=== PATIENT | male | born 1955 | race Caucasian/White ===

== ENCOUNTER 2022-08-08 09:17 | Outpatient (CLI) | payer MEDICARE, BC, SELFPAY ==
[2022-08-08 10:02] LABS: Albumin* 4.4 g/dL (3.3-5.0)
[2022-08-08 10:03] LABS: Chloride* 105 mmol/L (96-114); Potassium* 4.4 mmol/L (3.6-5.1); Sodium* 140 mmol/L (135-149)
[2022-08-08 10:05] LABS: Bilirubin Total* 0.9 mg/dL (0.1-1.5); Blood Urea Nitrogen* 20 mg/dL (7-30); Carbon Dioxide* 29 mmol/L (20-32); Cholesterol* 148 mg/dL (90-199); Estimated Glomerular Filt Rate 82 ml/min; Total Protein* 7.1 g/dL (6.0-8.3)
[2022-08-08 10:06] LABS: Alanine Aminotransferase* 29 U/L (4-50); Alkaline Phosphatase* 67 U/L (40-150); Aspartate Amino Transferase* 30 U/L (12-35); Glucose* 123 mg/dL (60-115); HDL Cholesterol* 50 mg/dL (>=40); LDL Cholesterol Calculated 70 mg/dL (<100); Triglycerides* 139 mg/dL (40-149)
[2022-08-08 10:50] LABS: PSA Screen* < 0.06 ng/mL (0.10-4.00)
== END 2022-08-08 09:18 | disposition home or self-care (01) ==
PROVIDERS: PCP Internal Medicine; Visit Provider Internal Medicine
DX: E78.5 Hyperlipidemia, unspecified (principal); E11.9 Type 2 diabetes mellitus without complications; I10 Essential (primary) hypertension; E66.9 Obesity, unspecified; Z12.5 Encounter for screening for malignant neoplasm of prostate
CPT/HCPCS: 80053; 80061; 84153

== ENCOUNTER 2023-08-03 07:50 | Outpatient (CLI) | payer MEDICARE, BC, SELFPAY | END 2023-08-03 07:51 | disposition home or self-care (01) | LOC: NFLDREF 14:56 | PROVIDERS: PCP Internal Medicine; Referring Provider Internal Medicine; Visit Provider Internal Medicine | DX: E78.2 Mixed hyperlipidemia (principal); E11.9 Type 2 diabetes mellitus without complications | CPT/HCPCS: 80053; 80061 ==

== ENCOUNTER 2024-03-15 14:31 | Outpatient (CLI) | payer MEDICARE, BC, SELFPAY ==
--- OUTSIDE RECORDS SUMMARY | 2024-03-15 14:33 | XMS_ITS | Clinical Summary ---
Author Organization [facility] Address [address] [place] [address] Care Team Providers Care Sack Lifter Name Role Phone Elsewhere, Pcp Primary Care Provider Unavailabl e Source Comments Patient records contain information from all sites at [facility]. For routine questions regarding patient records, call [phone] during business hours, M-F 8:00 AM - 5:00 PM Central Time. Record requests for emergency care only can be directed to [phone] at any time.[facility] Allergies Active Allergy Reactions Criticality Noted Date Comments Ciprofloxacin Myalgia 08/08/2023 Levofloxacin Tendonitis 01/14/2019 Medications Medication Sig Dispensed Refills Start Date End Date Status simvastatin (for_ZOCOR) 40 mg tablet Take 1 tablet by mouth every evening. 11/17/2015 Active omeprazole (PriLOSEC) [address] capsule Take 20 mg by mouth every morning before breakfast. Active lisinopriL (PRINIVIL,ZESTRIL ) 2.5 mg tablet Take 2.5 mg by mouth daily. 07/22/2020 Active DME Ostomy suppliesIndicatio ns:Conduit Ileal (HCC) DME Order 1 Unspecified 11 05/13/2022 Active DME Ostomy suppliesIndicatio ns:Conduit Ileal (HCC) DME Order 1 Unspecified 11 05/13/2022 Active ipratropium (ATROVENT) 21 mcg (0.03 %) nasal spray Administer 2 sprays into each nostril 2 (two) times a day. 30 mL 12 12/20/2022 Active DME Ostomy suppliesIndicatio ns:Conduit Ileal (HCC) DME Order 1 Unspecified 11 06/08/2023 Active DME Ostomy suppliesIndicatio ns:Conduit Ileal (HCC) DME Order 1 Unspecified 11 06/14/2023 Active DME CPAPIndications:O bstructive Sleep Apnea Adult DME Order 1 each 11/17/2023 Active dorzolamide-timol oL (COSOPT) 22.3-6.8 mg/mL ophthalmic solution Administer 1 drop into the left eye once for 1 dose. Take 1 drop left eye the morning of eye injections to maintain a healthy intra-ocular pressure. 10 mL 2 01/15/2024 Active Hospital, Clinic, or Other Facility Administered Medication Ordered Dose Route Frequency Start Date End Date Status nystatin 100,000 unit/gram powder 1 application (NYSTOP)Indications:Afterca re Urostomy (HCC) 1 application. 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 01/04/2018 Malignant Neoplasm Of Bladder 12/25/2014 Hyperlipidemia Diabetes Mellitus Type 2 Without Complication Overview: pt states that he is diabetic and is supposed to lose weight, no medications prescribed Arthritis Resolved Problems Problem Noted Date Diagnosed Date Resolved Date Chronic Respiratory Failure With Hypoxia 11/04/2018 03/05/2019 Encounters Date Type Department Care Team Description 02/19/2024 CPAP Download Remote Patient Monitoring [facility] [address] [place] [address] [facility], Provider 01/19/2024 CPAP Download Remote Patient Monitoring [facility] [address] [place] [address] [facility], Provider 01/15/2024 3:29 PM CDT - 01/15/2024 11:59 PM CDT Hospital Encounter Outpatient Procedure Center in [place] [address] Cristobal Handley M.D. Discharge Disposition: Home or Self Care 01/15/2024 2:20 PM CDT - 01/15/2024 3:28 PM CDT Hospital Encounter Outpatient Procedure Center in [address] [phone] Linda Engle M.D. Central Retinal Vein Occlusion With Macular Edema Left (HCC) Discharge Disposition: Home or Self Care 01/15/2024 Orders Only Department of Ophthalmology in [address] [phone] Cristobal Handley M.D. 12/19/2023 CPAP Download Remote Patient Monitoring [facility] [address] [place] [address] [facility], Provider from Last 3 Months Immunizations Name Administration Dates Next Due SARS-COV-2 (COVID-19) - MODERNA(Discontinued) Family History Medical History Relation Name Comments Asthma Father Estiven Sleep apnea Father Estiven Asthma Paternal Grandfather abril Cancer Paternal Grandfather abril Diabetes Paternal Grandmother Layla ADD Son Alverto Diabetes Son Alverto Amblyopia Neg Hx Blindness Neg Hx Cataracts Neg Hx Glaucoma Neg Hx Hypertension Neg Hx Macular degeneration Neg Hx Retinal degeneration Neg Hx Retinal detachment Neg Hx Strabismus Neg Hx Relation Name Status Comments Father Estiven Paternal Grandfather abril Paternal Grandmother Layla Son Alverto Social History Tobacco Use Types Packs/Day Years Used Date Smoking Tobacco: Never Smokeless Tobacco: Never Tobacco Cessation:Counseling Given: Not Answered Alcohol Use Standard Drinks/Week Comments Yes 5 (1 standard drink = 0.6 oz pur e alcohol) Humiliation, Afraid, Rape, and Kick questionnair e Answer Date Recorded Within the last year, have y ou been afraid of your partner or ex-partner? No 12/19/2022 Within the last year, have y ou been humiliated or emotionally abused in other ways by your partner or ex-partner? No Within the last year, have y ou been kicked, hit, slapped, or otherwise physically hurt by your partner or ex-partner? No 12/19/2022 Within the last year, have y ou been raped or forced to have any kind of sexual activity by your partner or ex-partner? No 12/19/2022 Social Connection and Isolat ion Panel [NHANES] Answer Date Recorded In a typical week, how many times do you talk on the phone with family, friends, or neighbors? More than three times a week 12/19/2022 How often do you get togethe r with friends or relatives? Three times a week 12/19/2022 How often do you attend chur ch or samaritan services? 1 to 4 times per year 12/19/2022 Do you belong to any clubs o r organizations such as judaism groups, unions, [employer] or athletic groups, or school groups? No 12/19/2022 How often do you attend meet ings of the clubs or organizations you belong to? Never 12/19/2022 Are you , , di vorced, , never , or living with a partner? 12/19/2022 AUDIT-C Answer Date Recorded Q1: How often do you have a drink containing alc ohol? 2-3 times a week 12/19/2022 Q2: How many drinks containi ng alcohol do you have on a typical day when you are drinking? 1 or 2 12/19/2022 Q3: How often do you have si x or more drinks on one occasion? Never 12/19/2022 Overall Financial Resource Strain (CARDIA) Answe r Date Recorded How hard is it for you to pa y for the very basics like food, housing, medical care, and heating? Not hard at all 12/19/2022 [facility] - Occupational Stress Questionnaire Answer Date Recorded Do you feel stress - tense, restless, nervous, or anxious, or unable to sleep at night because your mind is troubled all the time - these days? Not at all 12/19/2022 Exercise Vital Sign Answer Date Recorde d On average, how many days pe r week do you engage in moderate to strenuous exercise (like a brisk walk)? 0 days On average, how many minutes do you engage in exercise at this level? Patient declined 12/19/2022 Hunger Vital Sign Answer Date Recorded Within the past 12 months, y ou worried that your food would run out before you got the money to buy more. Never true 12/20/19 23 Within the past 12 months, t he food you bought just didn't last and you didn't have money to get more. Never true 12/19/2022 PRAPARE - Transportation Answer Date Re corded In the past 12 months, has l ack of transportation kept you from medical appointments or from getting medications? No 11/27 In the past 12 months, has l ack of transportation kept you from meetings, work, or from getting things needed for daily living? No 12/19/2022 Housing Stability Vital Sign Answer Hussain e Recorded In the last 12 months, was t here a time when you were not able to pay the mortgage or rent on time? No 12/19/2022 In the last 12 months, how many places have you lived? 1 12/19/2022 In the last 12 months, was t here a time when you did not have a steady place to sleep or slept in a nursing home (including now)? No 12/19/2022 Nutrition Answer Date Recorded Nutrition: EVOO Fat Source No 12/19 On average, how many serving s of fruits and vegetables do you eat per day (serving size is equal to 1 cup or approximately the size of a tennis ball)? 0-1 12/19/2022 Dental Answer Date Recorded Dental: Regular Dentist Yes 02/05/20 Employment Answer Date Recorded Employment status Retired 12/19/2022 Education Answer Date Recorded What is the highest level of school you have completed or the highest degree you have received? Bachelor's degree (e.g., BA, AB, BS) 02/22/2019 Sex and Gender Information Value Date Recorded Sex Assigned at Male 02/05/2018 5:12 PM CDT Gender Identity Male 02/05/2018 5:12 PM CDT Sexual Orientation Straight 02/05/2018 5: 12 PM CDT Last Filed Vital Signs Vital Sign Reading Time Taken Comments Blood Pressure 120/80 11/17/2023 10:38 AM CDT Pulse 92 11/17/2023 10:38 AM CDT Temperature 36.3 ??C (97.4 ??F) 11/17/2023 10:38 AM C DT Respiratory Rate 15 11/24/2019 8:53 AM CDT Oxygen Saturation 93% 11/17/2023 10:38 AM CDT Inhaled Oxygen Concentration - - Weight 120 kg (265 lb 6.9 oz) 11/17/2023 10:38 A M CDT Height 184.3 cm (6' 0.56) 11/17/2023 10:38 AM C DT Body Mass Index 35.45 11/17/2023 10:38 AM CDT Plan of Treatment Upcoming Encounters Date Type Department Care Team (Latest Contact Info) Description 03/21/2024 9:20 AM CDT Appointment Outpatient Procedure Center in [address] [phone] Linda Engle M.D. [address] [place] [phone] 05/20/2024 1:00 PM CDT Clinical Communication Virtual Review in [place], [place] [address] [place] [address] 05/21/2024 11:00 AM CDT Appointment Department of Radiology, [facility], in [place], [place] [address] [place] [phone] Francia Luque MPAS, P.A.-C. [address] [place] [phone] 05/21/2024 12:30 PM CDT Diagnostic Division of Pulmonary Medicine in [place], [place] [address] [place] [phone] Francia Luque MPAS, P.A.-C. [address] [place] [phone] 05/21/2024 1:30 PM CDT Office Visit Division of Pulmonary Medicine in [place], [place] [address] [place] [phone] Francia Luque MPAS, P.A.-C. [address] [place] [phone] Health Maintenance Due Date Last Done Comments CT Colonography 1955 Cologuard 1955 Colonoscopy 1955 Colorectal Cancer Screening 1955 Diabetic Office Visit with Foot Exam 1955 FIT 1955 Hepatitis C Screening 1955 Urine Albumin 1955 Hepatitis B Vaccines (1 of 3 - Risk 3-dose series) 2015 Hemoglobin A1C 02/01/2020 08/02/2019, 07/24/2015 Lipid (Cholesterol) Screening 07/24/2020 07/24/2015 Depression Screening (Annual PHQ-2) 08/28/2023 COVID-19 Vaccine ( season) 2023 08/08/2023, 07/11/2022, 10/12/2021, Additional history exists Influenza Vaccine (#1) 2024 , 07/11/2022, 08/18/2021, Additional history exists Creatinine Level (Kidney Function Test) 06/08/2024 06/08/2023, 12/29/2022, 07/15/2022, Additional history exists Potassium Level 06/08/2024 06/08/2023, 05/0 11/2022, 04/04/2022, Additional history exists Sodium Level 06/08/2024 06/08/2023, 05/0 11/2022, 04/04/2022, Additional history exists Dilated Eye Exam 11/08/2024 11/09/2023, , 07/27/2022, Additional history exists Office Visit for Blood Pressure Check / Re-check 11/16/2024 11/17/2023 DTaP,Tdap,and Td Vaccines (3 - Td or Tdap) 08/10/2032 08/10/2022, 06/08/2012, 04/04/2008 Zoster Vaccines Completed 09/24/2020, 07/15/2020 Pneumococcal vaccine (65+ years) Completed 08/18/2021, 05/31/2018 Fall Risk Screen (Annual) Completed 01/15/2024 HPV Vaccines Aged Out No longer eligi ble based on patient's age to complete this topic Medical Devices Implanted Type Area Optical Systems Engineer Device Identifier Shelf Expiration Date Model / Serial / Lot Clp Hrzn Ti 24 Clp Tiago - [id number] Implanted:Qty : 1 on 10/17/2019 by Alejandro Headley M.D. at [facility] Hardware e.g. pins/screws/ rods [employer] [id number] 03/18/2024 [id number] / / [id number] Clp Hrzn Ti 6 Clp Lg Orng - [id number] Implanted:Qty : 1 on 10/17/2019 by Alejandro Headley M.D. at [facility] Hardware e.g. pins/screws/ rods [employer] [id number] 02/27/2024 [id number] / / [id number] Clp Hrzn Ti 6 Clp Lg Orng - [id number] Implanted:Qty : 1 on 10/17/2019 by Alejandro Headley M.D. at [facility] Hardware e.g. pins/screws/ rods [employer] [id number] 02/27/2024 [id number] / / [id number] Clp Hrzn Ti 24 Clp Tiago - [id number] Implanted:Qty : 1 on 10/17/2019 by Alejandro Headley M.D. at [facility] Hardware e.g. pins/screws/ rods [employer] [id number] 03/04/2023 [id number] / / [id number] Clp Hrzn Ti 24 Clp Tiago - [id number] Implanted:Qty : 1 on 10/17/2019 by Alejandro Headley M.D. at [facility] Hardware e.g. pins/screws/ rods [employer] [id number] 12/06/2020 [id number] / / [id number] Clp Hrzn Ti 6 Clp Lg Orng - [id number] Implanted:Qty : 1 on 10/17/2019 by Alejandro Headley M.D. at [facility] Hardware e.g. pins/screws/ rods [employer] [id number] / / Clp Hrzn Ti 6 Clp Lg Orng - [id number] Implanted:Qty : 1 on 10/17/2019 by Alejandro Headley M.D. at [facility] Hardware e.g. pins/screws/ rods [employer] [id number] / / Clp Hrzn Ti 6 Clp Lg Orng - [id number] Implanted:Qty : 1 on 10/17/2019 by Alejandro Headley M.D. at [facility] Hardware e.g. pins/screws/ rods [employer] [id number] / / Clp Hrzn Ti 6 Clp Lg Orng - [id number] Implanted:Qty : 1 on 10/17/2019 by Alejandro Headley M.D. at [facility] Hardware e.g. pins/screws/ rods [employer] [id number] / / Clp Hrzn Ti 6 Clp Lg Orng - [id number] Implanted:Qty : 1 on 10/17/2019 by Alejandro Headley M.D. at [facility] Hardware e.g. pins/screws/ rods [employer] [id number] / / Clp Hrzn Ti 6 Clp Lg Orng - [id number] Implanted:Qty : 1 on 10/17/2019 by Alejandro Headley M.D. at [facility] Hardware e.g. pins/screws/ rods [employer] [id number] / / Procedures Procedure Name Priority Date/Time Associated Diagnosis Comments INTRAVITREAL INJECTION, PHARMACOLOGIC AGENT - OS - LEFT EYE Routine 01/15/2024 3:29 PM CDT Central Retinal Vein Occlusion With Macular Edema Left (HCC) OPHTHALMOLOGY IMAGE EXAM Routine 11/09/2023 12:00 AM CDT COMPREHENSIVE METABOLIC PANEL, S/P Routine 06/08/2023 6:43 AM CDT Malignant Neoplasm Of Bladder (HCC) HEMOGLOBIN A1C, B Routine 08/02/2019 10: 39 AM SECURITY SALES MANAGER Malignant Neoplasm Of Bladder (HCC) Symptom Urinary LIPID PANEL, S Routine 07/24/2015 6:41 AM SECURITY SALES MANAGER from Last 3 Months or Most Recently Relevant to Health Maintenance Results * Intravitreal Injection, Pharmacologic Agent - OS - Left Eye (01/15/2024 3:29 PM CDT) Narrative Cristobal Handley M.D. - 01/15/2024 3:43 PM CDT Pre-Procedure Verification Pre-procedure verification conducted to verify correct patient identity, procedure to be performed and, as applicable, correct side and site. Patient consent obtained. Time Out Confirmed correct patient, procedure, site, and patient consented. Anesthesia Topical anesthesia was used. Pre/Post Procedure prep and meds used were Celluvisc 1-10 drops, Povidone 5% 1-10 drops, Povidone 10% swabs x 3 to lids and lashes, Proparacaine 0.5% 1-10 drops, Tetracaine 0.5% 1-10 drops. Procedure Details Injection: 2 mg aflibercept 2 mg/0.05 mL ??Route: intravitreal, Site: Left Eye ??[facility]: 49175-009-84 Anterior Chamber Tap was Done. Balanced salt solution irrigation to injected eye after the injection was Done. Hand motion was present. Count fingers was correct. Reviewed instructions and patient verbalizes understanding. Ancillary Staff Ancillary Staff: Chloé Martins RN, Radha Bradford RN. Notes Patient oriented to outpatient procedure center. ??Reviewed process for scheduled procedure, and pain management including pain scale. Patient declines written post-procedure material or previously received brochure. ?? Information reviewed and understanding assessed by teach-back. ??Follow-up appointments discussed and return schedule given if requested. Left Eye Eylea [facility]: ??16858-589-99 Lot# [id number] Exp. 02/2024 Visual acuity stable. ??Eylea injection left eye today without complication. ??Modified Betadine. ?? Dr. Handley Cristobal Handley M.D. [facility] PROC EDURES * Eyes Spectralis OCT-Ophthalmology Image Exam (11/09/2023 12:00 AM CDT) Amish VINSON - 11/09/2023 8:17 AM CDT This order has been created and auto-finalized to support the import of images acquired without order. The clinical documentation to support these images can be found on the encounter that produced images. Provider Not In System IMG NON RAD IMAGI NG PROCEDURES [facility] NA * (ABNORMAL) Comprehensive Metabolic Panel (06/08/2023 6:43 AM CDT) Potassium, S 4.4 3.6 - 5.2 mmol/L 06/08/2023 7:47 AM CDT DTL Sodium, S 141 135 - 145 mmol/L 06/08/2023 7:47 AM CDT DTL Chloride, S 103 98 - 107 mmol/L 06/08/2023 7:47 AM CDT DTL Bicarbonate, S 26 22 - 29 mmol/L 06/08/2023 7:47 AM CDT DTL Anion Gap 12 7 - 15 06/08/2023 7:47 AM CDT DTL BUN (Blood Urea Nitrogen), S 14 8 - 24 mg/dL 06/08/2023 7:47 AM CDT DTL Creatinine 1.09 0.74 - 1.35 mg/dL 06/08/2023 7:47 AM CDT DTL Estimated GFR (eGFR) 74 >=60 mL/min/BS A 06/08/2023 7:47 AM CDT DTL Comment: Estimated GFR calculated using the 2020 CKD_EPI creatinine equation. Calcium, Total, S 9.3 8.8 - 10.2 mg/dL 06/08/2023 7:47 AM CDT DTL Glucose, S 160(H) 70 - 140 mg/dL 06/08/2023 7:47 AM CDT DTL Protein, Total, S 7.1 6.3 - 7.9 g/dL 06/08/2023 7:47 AM CDT DTL Albumin, S 4.5 3.5 - 5.0 g/dL 06/08/2023 7:47 AM CDT DTL Aspartate Aminotransferase (AST), S 26 8 - 48 U/L 06/08/2023 7:47 AM CDT DTL Alkaline Phosphatase, S 67 40 - 129 U/L 06/08/2023 7:47 AM CDT DTL Alanine Aminotransferase (ALT), S 36 7 - 55 U/L 06/08/2023 7:47 AM CDT DTL Bilirubin, Total, S 0.8 0.0 - 1.2 mg/dL 06/08/2023 7:47 AM CDT DTL Blood (Blood, Venous) 06/08/2023 6:43 AM CDT 06/08/2023 7:15 AM CDT Alejandro Headley M.D. LAB BLOOD ADD-ON Performing Organization Address City/[facility] Co de Phone Number [facility] [address] [place] [address] * (ABNORMAL) Hemoglobin A1c (08/02/2019 10:39 AM SECURITY SALES MANAGER) Hemoglobin A1c, B 6.9(H) 4.0 - 5.6 % 08/02/2019 11:31 AM SECURITY SALES MANAGER DTL Comment: Hemoglobin A1c values greater than or equal to 6.5 percent are diagnostic for diabetes mellitus. ??Diagnosis should be confirmed by repeat testing. ??In diabetic patients, HbA1c goals should be discussed with healthcare provider. Blood (Blood, Venous) 08/02/2019 10:39 AM SECURITY SALES MANAGER 08/02/2019 11:02 AM SECURITY SALES MANAGER Abealrdo Anna P.A.-C. LAB BLOOD ADD -ON Performing Organization Address City/[facility]/ZIP Co de Phone Number [facility] [address] [place] [address] * (ABNORMAL) Lipid Panel (07/24/2015 6:41 AM SECURITY SALES MANAGER) Cholesterol, Total 177 SeeComment MG/DL [facility] Comment: ? REFERENCE VALUE ? Desirable: < 200 ? Borderline high: 200 - 239 ? High: > or = 240 ? Triglycerides 182(H) SeeComment MG/DL [facility] Comment: ? REFERENCE VALUE ? Normal: <150 ? Borderline high: 150-199 ? High: 200-499 ? Very high: > or =500 ? Cholesterol, Non-HDL, Calculated 116 SeeComment MG/DL [facility] Comment: ? REFERENCE VALUE ? Desirable: <130 ? Above Desirable: 130-159 ? Borderline high: 160-189 ? High: 190-219 ? Very high: > or =220 ? Cholesterol, HDL, S 61 >=40 MG/DL [facility] Calculated LDL 80 SeeComment MG/DL [facility] Comment: ? REFERENCE VALUE ? Desirable: <100 ? Above Desirable: 100-129 ? Borderline high: 130-159 ? High: 160-189 ? Very high: > or =190 ? 07/24/2015 6:41 AM SECURITY SALES MANAGER 07/24/2015 6:41 AM SECURITY SALES MANAGER Alejandro Ha M.D. LAB BLOOD ADD-ON [facility] [address] [place] [address], [facility] from Last 3 Months or Most Recently Relevant to Health Maintenance Advance Directives For more information, please contact: [phone] * Full Code (Latest Code Status on File) Date Activated Date Inactivated Comments 09/02/2019 2:03 PM 09/02/2019 7:08 PM Question Answer Comments Full Code: Discussed * Full Code Date Activated Date Inactivated Comments 04/12/2019 10:50 AM 04/12/2019 6:30 PM Question Answer Comments Full Code: Discussed * Full Code Date Activated Date Inactivated Comments 03/14/2019 11:59 AM 03/14/2019 6:03 PM Question Answer Comments Full Code: Discussed * Full Code Date Activated Date Inactivated Comments 11/03/2018 4:00 PM 11/04/2018 3:17 PM Question Answer Comments Full Code: Discussed Care Teams Sack Lifter Relationship Specialty Start Date End Date Elsewhere, Pcp PCP - General Internal Medicine 01/14/19
--- OUTSIDE RECORDS SUMMARY | 2024-03-15 14:34 | XMS_ITS | Encounter Summary ---
Author Organization [facility] Address [address] [place] [address] Care Team Providers Care Electrotype Caster Name Role Phone Elsewhere, Pcp Primary Care Provider Unavailabl e Encounter Details Date Type Department Care Team (Late st Contact Info) Description 01/19/2024 CPAP Download Remote Patient Monitoring [facility] 5 200 [place] [address] [facility], Provider Social History Tobacco Use Types Packs/Day Years Used Date Smoking Tobacco: Never Smokeless Tobacco: Never Alcohol Use Standard Drinks/Week Comments Yes 5 [...] often do you attend chur ch or pentecostal services? 1 to 4 times per year 12/19/2022 Do you belong to any clubs o r organizations such as rastafarian groups, unions, fraternal or athletic groups, or school groups? No [...] and heating? Not hard at all 12/19/2022 [facility] of Occupat ional Health - Occupational Stress [...] place to sleep or slept in a jail (including now)? No 12/19/2022 Nutrition Answer Date Recorded Nutrition: EVOO Fat Source No 12/19 On average, how many serving s of fruits and vegetables do you eat per day (serving size is equal to 1 cup or approximately the size of a tennis ball)? 0-1 12/19/2022 Dental Answer Date Recorded Dental: Regular Dentist Yes 02/05/20 21 Employment Answer Date Recorded Employment status Retired [...] Orientation Straight 02/05/2018 5: 12 PM CDT documented as of this encounter Plan of Treatment Upcoming Encounters Date Type Department Care Team (Latest Contact Info) Description 03/21/2024 9:20 AM CDT Appointment Outpatient Procedure Center in [address] [phone] Linda Engle M.D. [address] [place] [phone] 05/20/2024 1:00 PM CDT Clinical Communication Virtual Review in [place], [place] 200 [place] [address] 05/21/2024 11:00 AM CDT Appointment Department of Radiology, [facility], in [place], [place] [address] [place] [address] Francia Luque MPAS, P.A.-C. [address] [place] [phone] 05/21/2024 12:30 PM CDT Diagnostic Division of Pulmonary Medicine in [place], [place] [address] [place] [address] Francia Luque MPAS, P.A.-C. [address] [place] [phone] 05/21/2024 1:30 PM CDT Office Visit Division of Pulmonary Medicine in [place], [place] [address] [place] [address] Francia Luque MPAS, P.A.-CElodia [address] [place] [phone] documented as of this encounter Visit Diagnoses Not on filedocumented in this encounter Care Teams Electrotype Caster Relationship Specialty Start Date End Date Elsewhere, Pcp PCP - General Internal Medicine 01/14/19 documented as of this encounter
--- OUTSIDE RECORDS SUMMARY | 2024-03-15 14:34 | XMS_ITS | Encounter Summary ---
Author Organization [facility] Address [address] [place] [address] Care Team Providers Care Spiritual Minister Name Role Phone Elsewhere, Pcp Primary Care Provider Unavailabl e Encounter Details Date Type Department Care Team (Late st Contact Info) Description 01/06/2017 Historical Ophthalmology [facility] Linda Engle M.D. [address] [place] [address] Social History Tobacco Use Types Packs/Day Years Used Date Smoking Tobacco: Never Assessed Sex and Gender Information Value Date Recorded Sex Assigned at Male 02/05/2018 5:12 PM CDT Gender Identity Male 02/05/2018 5:12 PM CDT Sexual Orientation Straight 02/05/2018 5: 12 PM CDT documented as of this encounter Progress Notes * Linda Engle M.D. - 01/06/2017 9:24 AM CDT Eye General CHIEF COMPLAINT Central field vision loss, left eye HISTORY OF PRESENT ILLNESS Central field vision loss; left eye; noticed one month ago while driving he closed his right eye. Sharp shooting pain; left eye; mild; on and off; x 1 month. IMPRESSION / REPORT / PLAN Consult requested by: Italo Zimmerman O.D. The following tests have been completed and need interpretation. Fundus photos. ZK OCT macula, Fluorescein Angiogram FA results: right eye: normal left eye: leakage from CME; very mild inferior peripheral vascular leakage OCT macula: right eye: left eye: CME, SRF in fovea Color photos consistent with exam. 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 Follow-up 4- weeks after the last injection with OCT both eyes. reserve inj slot DIAGNOSIS #1 old central retinal vein occlusion left eye #2 Cystoid macular edema left eye #3 mild cataract OU #4 bladder cancer CDM Reports - EYEGEN Id: [id number] Status: Fnl documented in this encounter Plan of Treatment Upcoming Encounters Date Type Department Care Team (Latest Contact Info) Description 03/21/2024 9:20 AM CDT Appointment Outpatient Procedure Center in [address] [phone] Linda Engle M.D. [address] [place] [phone] 05/20/2024 1:00 PM CDT Clinical Communication Virtual Review in [place], [place] 200 [place] [address] 05/21/2024 11:00 AM CDT Appointment Department of Radiology, [facility], in [address] [phone] Francia Luque MPAS, P.A.-C. [address] [place] [phone] 05/21/2024 12:30 PM CDT Diagnostic Division of Pulmonary Medicine in [address] [phone] Francia Luque MPAS, P.A.-C. [address] [place] [phone] 05/21/2024 1:30 PM CDT Office Visit Division of Pulmonary Medicine in [place], [place] [address] [place] [address] Francia Luque, BRIANDA, P.A.-C. [address] [place] [phone] documented as of this encounter Visit Diagnoses Not on filedocumented in this encounter Additional Health Concerns Infection Onset Date Last Indicated Resolved Time COVID19 Pending 05/10/2020 05/10/2020 05/11/2020 8 :57 AM CDT COVID19 Pending 03/09/2021 03/09/2021 03/09/2021 1 2:25 PM CDT COVID19 Pending 06/08/2021 06/08/2021 06/08/2021 2 :15 PM CDT documented as of this encounter Care Teams Spiritual Minister Relationship Specialty Start Date End Date Elsewhere, Pcp PCP - General Internal Medicine 01/14/19 documented as of this encounter
--- OUTSIDE RECORDS SUMMARY | 2024-03-15 14:34 | XMS_ITS | Referral Summary ---
Author Organization [facility] Address [address] [place] [address] Care Team Providers Care Cfo Controller Name Role Phone Elsewhere, Pcp Primary Care Provider Unavailabl e Source Comments Patient records contain information from all sites at [facility]. For routine questions regarding patient records, call [phone] during business hours, M-F 8:00 AM - 5:00 PM Central Time. Record requests for emergency care only can be directed to [phone] at any time.[facility] Encounters Date Type Department Care Team Description 02/19/2024 CPAP Download Remote Patient Monitoring [facility] 5 200 [place] [address] [facility], Provider 01/19/2024 CPAP Download Remote Patient Monitoring [facility] 5 [address] [place] [address] [facility], Provider 01/15/2024 Orders Only Department of Ophthalmology in [address] [phone] Cristobal Handley M.D. 01/15/2024 3:29 PM CDT - 01/15/2024 11:59 PM CDT Hospital Encounter Outpatient Procedure Center in [address] [phone] Cristobal Handley M.D. Discharge Disposition: Home or Self Care 01/15/2024 2:20 PM CDT - 01/15/2024 3:28 PM CDT Hospital Encounter Outpatient Procedure Center in [address] [phone] Linda Engle M.D. Central Retinal Vein Occlusion With Macular Edema Left (HCC) Discharge Disposition: Home or Self Care 12/19/2023 CPAP Download Remote Patient Monitoring [facility] [address] [place] [address] [facility], Provider from Last 3 Months Allergies Active Allergy Reactions Criticality Noted Date [...] Chronic Respiratory Failure With Hypoxia 11/04/2018 03/05/2019 Immunizations Name Administration Dates Next Due SARS-COV-2 (COVID-19) - MODERNA(Discontinued) Social History Tobacco Use Types Packs/Day Years [...] often do you attend chur ch or buddhist services? 1 to 4 times per year 12/19/2022 Do you belong to any clubs o r organizations such as yazidism groups, unions, fraternal or athletic groups, or [...] and heating? Not hard at all 12/19/2022 [facility] of Occupat ional Health - Occupational Stress [...] place to sleep or slept in a long term (including now)? No 12/19/2022 Nutrition Answer Date [...] AM CDT Appointment Outpatient Procedure Center in [address] [phone] Linda Engle M.D. [address] [place] [phone] 05/20/2024 1:00 PM CDT Clinical Communication Virtual Review in [place], [place] 200 [place] [address] 05/21/2024 11:00 AM CDT Appointment Department of Radiology, [facility], in [place], [place] [address] [place] [phone] Francia Luque, BRIANDA, P.A.-C. [address] [place] [phone] 05/21/2024 12:30 PM CDT Diagnostic Division of Pulmonary Medicine in [place], [place] [address] [place] [phone] Francia Luque MPAS, P.A.-C. [address] [place] [phone] 05/21/2024 1:30 PM CDT Office Visit Division of Pulmonary Medicine in [place], [place] [address] [place] [phone] Francia Luque MPAS, P.A.-C. [address] [place] [phone] Medical Devices Implanted Type Area Child Psychology Teacher Device Identifier Shelf Expiration Date Model / Serial / Lot Clp Hrzn Ti 24 Sky Cheema [facility] - [id number] Implanted:Qty : 1 on 10/17/2019 by Alejandro Headley M.D. at [facility] Hardware e.g. pins/screws/ rods [employer]dom[employer] [id number] 03/18/2024 [id number] / / [id number] Clp Hrzn Ti 6 Clp Lg Orng - [id number] Implanted:Qty : 1 on 10/17/2019 by Alejandro Headley M.D. at [facility] Hardware e.g. pins/screws/ rods [employer]dom[employer] [id number] 02/27/2024 [id number] / / [id number] Clp Hrzn Ti 6 Clp Lg Orng - [id number] Implanted:Qty : 1 on 10/17/2019 by Alejandro Headley M.D. at [facility] Hardware e.g. pins/screws/ rods [employer]dom[employer] [id number] 02/27/2024 [id number] / / [id number] Clp Hrzn Ti 24 Clp Md Tiago - [id number] Implanted:Qty : 1 on 10/17/2019 by Alejandro Headley M.D. at [facility] Hardware e.g. pins/screws/ rods [employer]dom[employer] [id number] 03/04/2023 [id number] / / [id number] Clp Hrzn Ti 24 Clp Md Tiago - [id number] Implanted:Qty : 1 on 10/17/2019 by Alejandro Headley M.D. at [facility] Hardware e.g. pins/screws/ rods [employer]dom[employer] [id number] 12/06/2020 [id number] / / [id number] Clp Hrzn Ti 6 Clp Lg Orng - [id number] Implanted:Qty : 1 on 10/17/2019 by Alejandro Headley M.D. at [facility] Hardware e.g. pins/screws/ rods Abdom[employer] [id number] / / Clp Hrzn Ti 6 Clp Lg Orng - [id number] Implanted:Qty : 1 on 10/17/2019 by Alejandro Headley M.D. at [facility] Hardware e.g. pins/screws/ rods Abdom[employer] [id number] / / Clp Hrzn Ti 6 Clp Lg Orng - [id number] Implanted:Qty : 1 on 10/17/2019 by Alejandro Headley M.D. at [facility] Hardware e.g. pins/screws/ rods [employer]dom[employer] [id number] / / Clp Hrzn Ti 6 Clp Lg Orng - [id number] Implanted:Qty : 1 on 10/17/2019 by Alejandro Headley M.D. at [facility] Hardware e.g. pins/screws/ rods [employer]dom[employer] [id number] / / Clp Hrzn Ti 6 Clp Lg Orng - [id number] Implanted:Qty : 1 on 10/17/2019 by Alejandro Headley M.D. at [facility] Hardware e.g. pins/screws/ rods [employer]dom[employer] [id number] / / Clp Hrzn Ti 6 Clp Lg Orng - [id number] Implanted:Qty : 1 on 10/17/2019 by Alejandro Headley M.D. at [facility] Hardware e.g. pins/screws/ rods Abdomen [employer] [id number] / / Procedures Procedure Name Priority Date/Time Associated Diagnosis Comments INTRAVITREAL INJECTION, PHARMACOLOGIC AGENT - OS - LEFT EYE Routine 01/15/2024 3:29 PM CDT Central Retinal Vein Occlusion With Macular Edema Left (HCC) OPHTHALMOLOGY IMAGE EXAM Routine 11/09/2023 12:00 AM CDT COMPREHENSIVE METABOLIC PANEL, S/P Routine 06/08/2023 6:43 AM CDT Malignant Neoplasm Of Bladder (HCC) HEMOGLOBIN A1C, B Routine 08/02/2019 10: 39 AM MANAGER DIGITAL Malignant Neoplasm Of Bladder (HCC) Symptom Urinary LIPID PANEL, S Routine 07/24/2015 6:41 AM MANAGER DIGITAL from Last 3 Months or Most Recently [...] mg/0.05 mL ??Route: intravitreal, Site: Left Eye ??[facility]: 76817-886-25 Anterior Chamber Tap was Done. Balanced salt [...] schedule given if requested. Left Eye Eylea [facility]: ??00483-392-46 Lot# [id number] Exp. 02/2024 Visual acuity stable. ??Eylea injection left eye today without complication. ??Modified Betadine. ?? Dr. Handley Cristobal Handley M.D. OPH CLINIC PROC EDURES * Eyes Spectralis OCT-Ophthalmology Image Exam (11/09/2023 12:00 AM CDT) Narrative [facility] - 11/09/2023 8:17 AM CDT This order has been created and auto-finalized to support the import of images acquired without order. The clinical documentation to support these images can be found on the encounter that produced images. Provider Not In System IMG NON RAD IMAGI NG PROCEDURES [facility] NA * (ABNORMAL) Comprehensive Metabolic Panel (06/08/2023 6:43 AM CDT) Pathologist [facility] Potassium, S 4.4 3.6 - 5.2 mmol/L [...] M.D. LAB BLOOD ADD-ON Performing Organization Address [facility] de Phone Number [facility] 200 [place] [address], [facility] 200 [place] [address] * (ABNORMAL) Hemoglobin A1c (08/02/2019 10:39 AM MANAGER DIGITAL) Hemoglobin A1c, B 6.9(H) 4.0 - 5.6 % 08/02/2019 11:31 AM MANAGER DIGITAL DTL Comment: Hemoglobin A1c values greater than or equal to 6.5 percent are diagnostic for diabetes mellitus. ??Diagnosis should be confirmed by repeat testing. ??In diabetic patients, HbA1c goals should be discussed with healthcare provider. Blood (Blood, Venous) 08/02/2019 10:39 AM MANAGER DIGITAL 08/02/2019 11:02 AM MANAGER DIGITAL Abelardo Anna P.A.-C. LAB BLOOD ADD -ON Performing Organization Address [facility] Co de Phone Number [facility] [address] [place] [address], [facility] 200 [place] [address] * (ABNORMAL) Lipid Panel (07/24/2015 6:41 AM MANAGER DIGITAL) Cholesterol, Total 177 SeeComment MG/DL [facility] Comment: ? REFERENCE VALUE ? Desirable: < 200 ? Borderline high: 200 - 239 ? High: > or = 240 ? Triglycerides 182(H) SeeComment MG/DL [facility] Comment: ? REFERENCE VALUE ? Normal: <150 ? Borderline high: 150-199 ? High: 200-499 ? Very high: > or =500 ? Cholesterol, Non-HDL, Calculated 116 SeeComment MG/DL [facility] Comment: ? REFERENCE VALUE ? Desirable: <130 ? Above Desirable: 130-159 ? Borderline high: 160-189 ? High: 190-219 ? Very high: > or =220 ? Cholesterol, HDL, S 61 >=40 MG/DL [facility] Calculated LDL 80 SeeComment MG/DL [facility] Comment: ? REFERENCE VALUE ? Desirable: <100 ? Above Desirable: 100-129 ? Borderline high: 130-159 ? High: 160-189 ? Very high: > or =190 ? 07/24/2015 6:41 AM MANAGER DIGITAL 07/24/2015 6:41 AM MANAGER DIGITAL Alejandro Ha M.D. LAB BLOOD ADD-ON [facility] [address] [place] [address], [facility] from Last 3 Months or Most Recently Relevant to Health Maintenance Advance Directives For more information, please contact: [phone] * Full Code (Latest Code Status on [...] Answer Comments Full Code: Discussed Care Teams Cfo Controller Relationship Specialty Start Date End Date Elsewhere, Pcp PCP - General Internal Medicine 01/14/19
--- OUTSIDE RECORDS SUMMARY | 2024-03-15 14:34 | XMS_ITS ---
Author Organization [facility] Address [address] [place] [address] Care Team Providers Care Molybdenum Steamer Operator Name Role Phone Elsewhere, Pcp Primary Care Provider Unavailabl e Active Problems Problem Noted Date Diagnosed Date [...] to lose weight, no medications prescribed Arthritis Current Oncology Plans No current plan information found. Past Plans Urology Plan Name Start Date Discontinue Date Treatment Medications Discontinue Reason Plan Provider BCG LIVE (INDUCTION) 50 MG/ 50 ML WEEKLY FOR 6 WEEKS 05/21/2019 07/01/2021 BCG live (Feliciano BCG) Therapy Complete Abelardo Anna, P.A.-C. Radiation Treatments * No radiation treatments are documented for this patient in [facility]. Treatments may have been administered in another system. Lifetime Dose Tracking * Chemical Lifetime Dose Automatic Entry Manual Entr y Radiation 9 mGy 9 mGy 0 mGy Fluoro Time 3.3 minutes 3.3 minutes 0 minutes DAP (uGy-m2) 186.72 uGy-m2 186.72 uGy-m2 0 uGy-m2 Resolved Problems Problem Noted Date Diagnosed Date Resolved Date Chronic Respiratory Failure With Hypoxia 11/04/2018 03/05/2019
--- OUTSIDE RECORDS SUMMARY | 2024-03-15 14:34 | XMS_ITS | Encounter Summary ---
Author Organization [facility] Address [address] [place] [address] Care Team Providers Care Field Scout Name Role Phone Elsewhere, Pcp Primary Care Provider Unavailabl e Encounter Details Date Type Department Care Team (Late st Contact Info) Description 11/18/2023 CPAP Download Remote Patient Monitoring [facility] 5 [address] [place] [address] [facility], Provider Social History Tobacco Use Types Packs/Day [...] often do you attend chur ch or hinduism services? 1 to 4 times per year 12/19/2022 Do you belong to any clubs o r organizations such as yazdanism groups, unions, fraternal or athletic groups, or [...] and heating? Not hard at all 12/19/2022 [facility] [place] of Occupat ional Health - Occupational Stress [...] place to sleep or slept in a chcf (including now)? No 12/19/2022 Nutrition Answer Date [...] AM CDT Appointment Outpatient Procedure Center in [address] [phone] Linda Engle M.D. [address] [place] [phone] 05/20/2024 1:00 PM CDT Clinical Communication Virtual Review in [place], [place] 200 [place] [address] 05/21/2024 11:00 AM CDT Appointment Department of Radiology, [facility], in [place], [place] [address] [place] [address] Francia Luque MPAS, P.A.-C. [address] [place] [phone] 05/21/2024 12:30 PM CDT Diagnostic Division of Pulmonary Medicine in [place], [place] [address] [place] [address] Francia Luque MPAS, P.A.-C. [address] [place] [phone] 05/21/2024 1:30 PM CDT Office Visit Division of Pulmonary Medicine in [place], [place] [address] [place] [address] Francia Luque MPAS, P.A.-CElodia [address] [place] [phone] documented as of this encounter Visit Diagnoses Not on filedocumented in this encounter Care Teams Field Scout Relationship Specialty Start Date End Date Elsewhere, Pcp PCP - General Internal Medicine 01/14/19 documented as of this encounter
--- OUTSIDE RECORDS SUMMARY | 2024-03-15 14:34 | XMS_ITS | Encounter Summary ---
Author Organization [facility] Address [address] [place] [address] Care Team Providers Care Forming Fixer Name Role Phone Elsewhere, Pcp Primary Care Provider Unavailabl e Encounter Details Date Type Department Care Team (Latest Contact Info) Description 11/06/2023 Clinical Communication Department of Ophthalmology in [place], [place] [address] [place] [address] Linda Engle M.D. [address] [place] [phone] Social History Tobacco Use Types Packs/Day Years [...] often do you attend chur ch or jehovah's witness services? 1 to 4 times per year 12/19/2022 Do you belong to any clubs o r organizations such as hindu groups, unions, fraternal or athletic groups, or [...] and heating? Not hard at all 12/19/2022 [facility] of Occupat ional Health - Occupational Stress [...] place to sleep or slept in a residential (including now)? No 12/19/2022 Nutrition Answer Date [...] PM CDT documented as of this encounter Miscellaneous Notes * Telephone Encounter - Merle Manrique - 11/06/2023 1:21 PM CDT Pt [id number], Mr. Cayden Arnold, was scheduled to see Dr. Engle today and has held inj in [employer] 11/13. Pt canceled Dr. Engle appt today via Portal. Should 11/13 inj in [employer] be canceled? Dr. Engle has nothing available; please advise where to reschedule. Thank you! documented in this encounter Plan of Treatment Upcoming Encounters Date Type Department Care Team (Latest Contact Info) Description 03/21/2024 9:20 AM CDT Appointment Outpatient Procedure Center in [address] [phone] Linda Engle M.D. [address] [place] [phone] 05/20/2024 1:00 PM CDT Clinical Communication Virtual Review in [place], [place] 200 [place] [address] 05/21/2024 11:00 AM CDT Appointment Department of Radiology, [facility], in [place], [place] [address] [place] [phone] Francia Luque MPAS, P.A.-C. [address] [place] [phone] 05/21/2024 12:30 PM CDT Diagnostic Division of Pulmonary Medicine in [place], [place] [address] [place] [phone] Francia Luque MPAS, P.A.-C. [address] [place] [phone] 05/21/2024 1:30 PM CDT Office Visit Division of Pulmonary Medicine in [place], [place] [address] [place] [phone] Francia Luque MPAS, P.A.-C. [address] [place] [phone] documented as of this encounter Visit Diagnoses Not on filedocumented in this encounter Care Teams Forming Fixer Relationship Specialty Start Date End Date Elsewhere, Pcp PCP - General Internal Medicine 01/14/19 documented as of this encounter
--- OUTSIDE RECORDS SUMMARY | 2024-03-15 14:34 | XMS_ITS | Encounter Summary ---
Author Organization [facility] Address [address] [place] [address] Care Team Providers Care Channel Development Manager Name Role Phone Elsewhere, Pcp Primary Care Provider Unavailabl e Reason for Referral * Outpatient (Routine) - Closed Specialty Diagnoses / Procedures Referred By Yohannes ha Referred To Contact Pulmonary Medicine Diagnoses Restrictive Lung Disease Dennis Luna M.D. [address] [place] [phone] [facility] Referral ID Status Reason Start Date Expiration Date Visits Re quested Visits Authorized [id number] Closed 10/22/2018 10/22/2019 1 1 RINT ANALYST Encounter Details Date Type Department Care Team (Late st Contact Info) Description 10/22/2018 [facility] [address] [place] [address] Dennis Luna M.D. [address] [place] [phone] Restrictive Lung Disease (Primary Dx) Social History Tobacco Use Types Packs/Day Years Used Date Smoking Tobacco: Never Smokeless Tobacco: Never Sex and Gender Information Value Date Recorded Sex Assigned at Male 02/05/2018 5:12 PM CDT Gender Identity Male 02/05/2018 5:12 PM CDT Sexual Orientation Straight 02/05/2018 5: 12 PM CDT documented as of this encounter Plan of Treatment Upcoming Encounters Date Type Department Care Team (Latest Contact Info) Description 03/21/2024 9:20 AM CDT Appointment Outpatient Procedure Center in [address] [phone] Linda Engle M.D. [address] [place] [phone] 05/20/2024 1:00 PM CDT Clinical Communication Virtual Review in [place], [place] 200 [place] [address] 05/21/2024 11:00 AM CDT Appointment Department of Radiology, [facility], in [place], [place] [address] [place] [phone] Francia Luque MPAS, P.A.-C. [address] [place] [phone] 05/21/2024 12:30 PM CDT Diagnostic Division of Pulmonary Medicine in [place], [place] [address] [place] [phone] Francia Luque MPAS, P.A.-C. [address] [place] [phone] 05/21/2024 1:30 PM CDT Office Visit Division of Pulmonary Medicine in [place], [place] [address] [place] [phone] Francia Luque MPAS, P.A.-C. [address] [place] [phone] Scheduled Referrals Name Type Priority Associated Diagnoses Orde r Schedule Pulmonary Medicine Referral Outpatient Referral Routine Restrictive Lung Disease Expected: 10/22/2018 (Approximate), Expires: 10/22/2021 documented as of this encounter Visit Diagnoses Diagnosis Restrictive Lung Disease- Primary documented in this encounter Additional Health Concerns Infection Onset Date Last Indicated Resolved Time COVID19 Pending 05/10/2020 05/10/2020 05/11/2020 8 :57 AM CDT COVID19 Pending 03/09/2021 03/09/2021 03/09/2021 1 2:25 PM CDT COVID19 Pending 06/08/2021 06/08/2021 06/08/2021 2 :15 PM CDT documented as of this encounter Care Teams Channel Development Manager Relationship Specialty Start Date End Date Elsewhere, Pcp PCP - General Internal Medicine 01/14/19 documented as of this encounter
--- OUTSIDE RECORDS SUMMARY | 2024-03-15 14:34 | XMS_ITS | Encounter Summary ---
Author Organization [facility] Address [address] [place] [address] Care Team Providers Care Highway Research Engineer Name Role Phone Elsewhere, Pcp Primary Care Provider Unavailabl e Encounter Details Date Type Department Care Team (Late st Contact Info) Description 05/16/2017 Historical Ophthalmology RST OPH Linda Engle M.D. [address] [place] [address] Social History Tobacco Use Types Packs/Day Years Used Date Smoking Tobacco: Never Assessed Sex and Gender Information Value Date Recorded Sex Assigned at Male 02/05/2018 5:12 PM CDT Gender Identity Male 02/05/2018 5:12 PM CDT Sexual Orientation Straight 02/05/2018 5: 12 PM CDT documented as of this encounter Progress Notes * Linda Engle M.D. - 05/16/2017 12:11 PM CDT Eye General CHIEF COMPLAINT old central retinal vein occlusion left eye HISTORY OF PRESENT ILLNESS Blurred vision; left eye; x 1 year; constantly; symptoms are moderate. Patient's last Avastin injection left eye was 04/12/17. IMPRESSION / REPORT / PLAN Consult requested by: Italo Zimmerman O.D. The following tests have been completed and need interpretation. Fundus photos. 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 Avastin, left eye for Central Retinal Vein Occlusion and Macular Edema Follow-up for 3 more Avastin LEFT eye every 6- weeks. Follow-up 6- weeks after the last injection with OCT both eyes. reserve inj slot DIAGNOSIS #1 old central retinal vein occlusion left eye #2 Cystoid macular edema left eye #3 mild cataract OU #4 bladder cancer CDM Reports - EYEGEN Id: [id number] Status: Fnl documented in this encounter Plan of Treatment Upcoming Encounters Date Type Department Care Team (Latest Contact Info) Description 03/21/2024 9:20 AM CDT Appointment Outpatient Procedure Center in [address] [phone] Linda Engle M.D. [address] [place] [phone] 05/20/2024 1:00 PM CDT Clinical Communication Virtual Review in [place], [place] 200 [place] [address] 05/21/2024 11:00 AM CDT Appointment Department of Radiology, [facility], in [place], [place] [address] [place] [phone] Francia Luque MPAS, P.A.-C. [address] [place] [phone] 05/21/2024 12:30 PM CDT Diagnostic Division of Pulmonary Medicine in [place], [place] [address] [place] [phone] LuqueFrancia ferrera MPAS, P.A.-C. [address] [place] [phone] 05/21/2024 1:30 PM CDT Office Visit Division of Pulmonary Medicine in [place], [place] [address] [place] [phone] Francia Luque MPAS, P.A.-C. [address] [place] [phone] documented as of this encounter Visit Diagnoses Not on filedocumented in this encounter Additional Health Concerns Infection Onset Date Last Indicated Resolved Time COVID19 Pending 05/10/2020 05/10/2020 05/11/2020 8 :57 AM CDT COVID19 Pending 03/09/2021 03/09/2021 03/09/2021 1 2:25 PM CDT COVID19 Pending 06/08/2021 06/08/2021 06/08/2021 2 :15 PM CDT documented as of this encounter Care Teams Highway Research Engineer Relationship Specialty Start Date End Date Elsewhere, Pcp PCP - General Internal Medicine 01/14/19 documented as of this encounter
--- OUTSIDE RECORDS SUMMARY | 2024-03-15 14:34 | XMS_ITS ---
Author Organization [facility] Address [address] [place] [address] Care Team Providers Care Census Taker Name Role Phone Unavailable Unavailable Unavailable Surgery Details Not on file Complications Check Surgery Details section. Procedure Estimated Blood Loss Check Surgery Details section. Procedure Findings Check Surgery Details section. Procedure Specimens Taken Check Surgery Details section.
--- OUTSIDE RECORDS SUMMARY | 2024-03-15 14:34 | XMS_ITS | Encounter Summary ---
Author Organization [facility] Address [address] [place] [address] Care Team Providers Care Manager Asset Management Name Role Phone Elsewhere, Pcp Primary Care Provider Unavailabl e Reason for Visit * Outpatient (Routine) - Authorized Specialty Diagnoses / Procedures Referred By Yohannes ha Referred To Contact Diagnoses Central Retinal Vein Occlusion With Macular Edema Left (HCC) Procedures Intravitreal Injection, Pharmacologic Agent - OS - Left Eye Linda Engle M.D. 200 [place] [address] [facility] Referral ID Status Reason Start Date Expiration Date V isits Requested Visits Authorized [id number] Authorized 11/10/2023 11/09/2024 3 3 Encounter Details Date Type Department Care Team (Latest Contact Info) Description 01/15/2024 2:20 PM CDT - 01/15/2024 3:28 PM CDT Hospital Encounter Outpatient Procedure Center in [address] [phone] Linda Engle M.D. [address] [place] [phone] Central Retinal Vein Occlusion With Macular Edema Left (HCC) Discharge Disposition: Home or Self Care Social History Tobacco Use Types Packs/Day Years [...] often do you attend chur ch or catholic services? 1 to 4 times per year 12/19/2022 Do you belong to any clubs o r organizations such as jew groups, unions, fraternal or athletic groups, or [...] and heating? Not hard at all 12/19/2022 [facility] [place] of Occupat ional Health - Occupational Stress [...] place to sleep or slept in a senior care (including now)? No 12/19/2022 Nutrition Answer Date [...] PM CDT documented as of this encounter Medications at Time of Discharge Medication Sig Dispensed Refills Start Date End Date DME CPAPIndications:Obstr uctive Sleep Apnea Adult DME Order 1 each 11/17/2023 DME Ostomy suppliesIndications:C onduit Ileal (HCC) DME Order 1 Unspecified 11 05/13/2022 DME Ostomy suppliesIndications:C onduit Ileal (HCC) DME Order 1 Unspecified 11 05/13/2022 DME Ostomy suppliesIndications:C onduit Ileal (HCC) DME Order 1 Unspecified 11 06/08/2023 DME Ostomy suppliesIndications:C onduit Ileal (HCC) DME Order 1 Unspecified 11 06/14/2023 ipratropium (ATROVENT) 21 mcg (0.03 %) nasal spray Administer 2 sprays into each nostril 2 (two) times a day. 30 mL 12 12/20/2022 lisinopriL (PRINIVIL,ZESTRIL) 2.5 mg tablet Take 2.5 mg by mouth daily. 07/22/2020 omeprazole (PriLOSEC) [address] capsule Take 20 mg by mouth every morning before breakfast. simvastatin (for_ZOCOR) 40 mg tablet Take 1 tablet by mouth every evening. 11/17/2015 documented as of this encounter Plan of Treatment Upcoming Encounters Date Type Department Care Team (Latest Contact Info) Description 03/21/2024 9:20 AM CDT Appointment Outpatient Procedure Center in [address] [phone] Linda Engle M.D. [address] [place] [address] 05/20/2024 1:00 PM CDT Clinical Communication Virtual Review in [place], [place] 200 [place] [address] 05/21/2024 11:00 AM CDT Appointment Department of Radiology, [facility], in [place], [place] [address] [place] [phone] Francia Luque MPAS, P.A.-CElodia [address] [place] [phone] 05/21/2024 12:30 PM CDT Diagnostic Division of Pulmonary Medicine in [place], [place] [address] [place] [phone] Francia Luque MPAS, P.AElodia-CElodia [address] [place] [phone] 05/21/2024 1:30 PM CDT Office Visit Division of Pulmonary Medicine in [place], [place] [address] [place] [phone] Francia Luque MPAS, P.A.-CElodia [address] [place] [phone] documented as of this encounter Procedures Procedure Name Priority Date/Time Associated Diagnosis Comments INTRAVITREAL INJECTION, PHARMACOLOGIC AGENT - OS - LEFT EYE Routine 01/15/2024 3:29 PM CDT Central Retinal Vein Occlusion With Macular Edema Left (HCC) documented in this encounter Results * Intravitreal Injection, Pharmacologic Agent - OS - Left Eye (01/15/2024 3:29 PM CDT) Cristobal García M.D. - 01/15/2024 3:43 PM CDT Pre-Procedure [...] mg/0.05 mL ??Route: intravitreal, Site: Left Eye ??[facility] [place] 08744-310-55 Anterior Chamber Tap was Done. Balanced salt [...] schedule given if requested. Left Eye Eylea [place]: ??01638-800-95 Lot# [id number] Exp. 02/2024 Visual acuity stable. ??Eylea injection left eye today without complication. ??Modified Betadine. ?? Dr. Handley Cristobal Handley M.D. OPH CLINIC PROC EDURES documented in this encounter Visit Diagnoses Diagnosis Central Retinal Vein Occlusion With Macular Edema Left (HCC) documented in this encounter Administered Medications Inactive Administered Medications - up to 3 most recent administrations Medication Order MAR Action Action Date Dose Rate Site aflibercept intraocular injection 2 mg (EYLEA) 2 mg, intravitreal, One-Time Injection, Starting on Mon01/15/24 at 1543, For 1 dose Given 01/15/2024 3:43 PM CDT 2 mg Left Eye documented in this encounter Care Teams Manager Asset Management Relationship Specialty Start Date End Date Elsewhere, Pcp PCP - General Internal Medicine 01/14/19 documented as of this encounter
--- OUTSIDE RECORDS SUMMARY | 2024-03-15 14:34 | XMS_ITS | Encounter Summary ---
Author Organization [facility] Address [address] [place] [address] Care Team Providers Care Wilderness Guide Name Role Phone Elsewhere, Pcp Primary Care Provider Unavailabl e Encounter Details Date Type Department Care Team (Late st Contact Info) Description 02/19/2024 CPAP Download Remote Patient Monitoring [facility] 200 [place] [address] [facility], Provider Social History Tobacco Use Types [...] often do you attend chur ch or faith services? 1 to 4 times per year [...] and heating? Not hard at all 12/19/2022 [facility] of Occupat ional Health - Occupational Stress [...] place to sleep or slept in a mcc (including now)? No 12/19/2022 Nutrition Answer Date [...] AM CDT Appointment Outpatient Procedure Center in [address] [phone] Linda Engle M.D. [address] [place] [phone] 05/20/2024 1:00 PM CDT Clinical Communication Virtual Review in [place], [place] 200 [place] [phone] 05/21/2024 11:00 AM CDT Appointment Department of Radiology, [facility], in [place], [place] [address] [place] [address] Francia Luque MPAS, P.A.-C. [address] [place] [phone] 05/21/2024 12:30 PM CDT Diagnostic Division of Pulmonary Medicine in [place], [place] [address] [place] [phone] Francia Luque MPAS, P.A.-C. [address] [place] [phone] 05/21/2024 1:30 PM CDT Office Visit Division of Pulmonary Medicine in [place], [place] [address] [place] [address] Francia Luque MPAS, P.A.-CElodia [address] [place] [phone] documented as of this encounter Visit Diagnoses Not on filedocumented in this encounter Care Teams Wilderness Guide Relationship Specialty Start Date End Date Elsewhere, Pcp PCP - General Internal Medicine 01/14/19 documented as of this encounter
--- OUTSIDE RECORDS SUMMARY | 2024-03-15 14:34 | XMS_ITS | Encounter Summary ---
Author Organization [facility] Address [address] [place] [address] Care Team Providers Care Engine Dispatcher Name Role Phone Elsewhere, Pcp Primary Care Provider Unavailabl e Encounter Details Date Type Department Care Team (Late st Contact Info) Description 11/02/2017 Historical Ophthalmology RST OPH Linda Engle M.D. [address] [place] [address] Social History Tobacco Use Types Packs/Day Years Used Date Smoking Tobacco: Never Assessed Sex and Gender Information Value Date Recorded Sex Assigned at Male 02/05/2018 5:12 PM CDT Gender Identity Male 02/05/2018 5:12 PM CDT Sexual Orientation Straight 02/05/2018 5: 12 PM CDT documented as of this encounter Progress Notes * Linda Engle M.D. - 11/02/2017 12:06 PM CST Eye General CHIEF COMPLAINT blurred vision Lt eye HISTORY OF PRESENT ILLNESS Blurred vision; left eye; x many months; constantly. Floaters alone; left eye; following injection;on and off. IMPRESSION / REPORT / PLAN Consult requested by: Italo Zimmerman O.D. The following tests have been completed and need interpretation. Fundus photos. 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 11/02/2017: has fluid LE after avastin 6.5 weeks ago; reduce interval to 4-5 wks Avastin, left eye for Central Retinal Vein Occlusion and Macular Edema Follow-up for 3 more Avastin LEFT eye every 4-5 weeks. Follow-up 5- weeks after the last injection with OCT both eyes. reserve inj slot DIAGNOSIS #1 old central retinal vein occlusion left eye #2 Cystoid macular edema left eye #3 mild cataract OU #4 bladder cancer CDM Reports - EYEGEN Id: [id number] Status: Fnl documented in this encounter Plan of Treatment Upcoming Encounters Date Type Department Care Team (Latest Contact Info) Description 03/21/2024 9:20 AM CDT Appointment Outpatient Procedure Center in [address] [phone] Linda Engle M.D. [address] [place] [phone] 05/20/2024 1:00 PM CDT Clinical Communication Virtual Review in [place], [place] 200 [place] [phone] 05/21/2024 11:00 AM CDT Appointment Department of Radiology, [facility], in [address] [phone] Francia Luque, MPAS, P.A.-C. [address] [place] [phone] 05/21/2024 12:30 PM CDT Diagnostic Division of Pulmonary Medicine in [place], [place] [address] [place] [address] Francia Luque MPAS, P.A.-C. [address] [place] [phone] 05/21/2024 1:30 PM CDT Office Visit Division of Pulmonary Medicine in [place], [place] [address] [place] [address] Francia Luque MPAS, P.A.-C. [address] [place] [address] documented as of this encounter Visit Diagnoses Not on filedocumented in this encounter Additional Health Concerns Infection Onset Date Last Indicated Resolved Time COVID19 Pending 05/10/2020 05/10/2020 05/11/2020 8 :57 AM CDT COVID19 Pending 03/09/2021 03/09/2021 03/09/2021 1 2:25 PM CDT COVID19 Pending 06/08/2021 06/08/2021 06/08/2021 2 :15 PM CDT documented as of this encounter Care Teams Engine Dispatcher Relationship Specialty Start Date End Date Elsewhere, Pcp PCP - General Internal Medicine 01/14/19 documented as of this encounter
--- OUTSIDE RECORDS SUMMARY | 2024-03-15 14:34 | XMS_ITS | Encounter Summary ---
Author Organization [facility] Address [address] [place] [address] Care Team Providers Care Cashier Supervisor Name Role Phone Elsewhere, Pcp Primary Care Provider Unavailabl e Encounter Details Date Type Department Care Team (Late st Contact Info) Description 12/19/2023 CPAP Download Remote Patient Monitoring [facility] 200 [place] [address] [facility], Provider Social History Tobacco Use Types Packs/Day [...] often do you attend chur ch or yazidism services? 1 to 4 times per year 12/19/2022 Do you belong to any clubs o r organizations such as tenriism groups, unions, fraternal or athletic groups, or [...] and heating? Not hard at all 12/19/2022 [facility] [place] of Occupat ional Health - Occupational Stress [...] place to sleep or slept in a skilled nursing (including now)? No 12/19/2022 Nutrition Answer Date [...] AM CDT Appointment Outpatient Procedure Center in [address] [phone] Linda Engle M.D. [address] [place] [phone] 05/20/2024 1:00 PM CDT Clinical Communication Virtual Review in [place], [place] 200 [place] [address] 05/21/2024 11:00 AM CDT Appointment Department of Radiology, [facility], in [place], [place] [address] [place] [address] Francia Luque MPAS, P.A.-C. [address] [place] [phone] 05/21/2024 12:30 PM CDT Diagnostic Division of Pulmonary Medicine in [place], [place] [address] [place] [address] Francia Luque MPAS, P.A.-C. [address] [place] [phone] 05/21/2024 1:30 PM CDT Office Visit Division of Pulmonary Medicine in [place], [place] [address] [place] [address] Francia Luque MPAS, P.A.-CElodia [address] [place] [phone] documented as of this encounter Visit Diagnoses Not on filedocumented in this encounter Care Teams Cashier Supervisor Relationship Specialty Start Date End Date Elsewhere, Pcp PCP - General Internal Medicine 01/14/19 documented as of this encounter
--- OUTSIDE RECORDS SUMMARY | 2024-03-15 14:34 | XMS_ITS | Encounter Summary ---
Author Organization [facility] Address [address] [place] [address] Care Team Providers Care Cold Press Loader Name Role Phone Elsewhere, Pcp Primary Care Provider Unavailabl e Encounter Details Date Type Department Care Team (Latest Contact Info) Description 01/15/2024 3:29 PM CDT - 01/15/2024 11:59 PM CDT Hospital Encounter Outpatient Procedure Center in [address] [phone] Cristobal Handley M.D. [address] [place] [phone] Discharge Disposition: Home or Self Care Social [...] 12/19/2022 How often do you attend chur or christian services? 1 to 4 times per year 12/19/2022 Do you belong to any clubs o r organizations such as congregational groups, unions, fraternal or athletic groups, or [...] and heating? Not hard at all 12/19/2022 [facility] [place] [facility] of Occupat ional Health - Occupational Stress [...] place to sleep or slept in a fci (including now)? No 12/19/2022 Nutrition Answer Date [...] AM CDT Appointment Outpatient Procedure Center in [address] [phone] Linda Engle M.D. [address] [place] [phone] 05/20/2024 1:00 PM CDT Clinical Communication Virtual Review in [place], [place] 200 [place] [address] 05/21/2024 11:00 AM CDT Appointment Department of Radiology, [facility], in [place], [place] [address] [place] [phone] Francia Luque MPAS, P.A.-C. [address] [place] [phone] 05/21/2024 12:30 PM CDT Diagnostic Division of Pulmonary Medicine in [place], [place] [address] [place] [phone] Francia Luque MPAS, P.A.-C. [address] [place] [address] [place] [phone] 05/21/2024 1:30 PM CDT Office Visit Division of Pulmonary Medicine in [place], [place] [address] [place] [phone] Francia Luque MPAS, PNori-C. [address] [place] [phone] documented as of this encounter Procedures Procedure [...] mg/0.05 mL ??Route: intravitreal, Site: Left Eye ??[facility]: 39386-784-47 Anterior Chamber Tap was Done. Balanced salt [...] schedule given if requested. Left Eye Eylea [facility]: ??28786-050-86 Lot# [id number] Exp. 02/2024 Visual acuity stable. ??Eylea injection left eye today without complication. ??Modified Betadine. ?? Dr. Handley Cristobal Handley M.D. [facility] PROC EDURES documented in this encounter Visit Diagnoses Not on filedocumented in this encounter Care Teams Cold Press Loader Relationship Specialty Start Date End Date Elsewhere, Pcp PCP - General Internal Medicine 01/14/19 documented as of this encounter
--- OUTSIDE RECORDS SUMMARY | 2024-03-15 14:34 | XMS_ITS | Encounter Summary ---
Author Organization [facility] Address [address] [place] [address] Care Team Providers Care Case Management Manager Name Role Phone Elsewhere, Pcp Primary Care Provider Unavailabl e Encounter Details Date Type Department Care Team (Late st Contact Info) Description 01/15/2024 Orders Only Department of Ophthalmology in [place], [place] [address] [place] [phone] rCistobal Handley M.D. [address] [place] [phone] Social History Tobacco Use Types Packs/Day Years [...] How often do you attend chur or shinto services? 1 to 4 times per year 12/19/2022 Do you belong to any clubs o r organizations such as sikhism groups, unions, fraternal or athletic groups, or [...] and heating? Not hard at all 12/19/2022 [facility] - [...] the money to buy more. Never true 04/24/20 23 Within the past 12 months, t [...] place to sleep or slept in a fdc (including now)? No 12/19/2022 Nutrition Answer Date [...] AM CDT Appointment Outpatient Procedure Center in [address] [phone] Linda Engle M.D. [address] [place] [phone] 05/20/2024 1:00 PM CDT Clinical Communication Virtual Review in [place], [place] [address] [place] [address] 05/21/2024 11:00 AM CDT Appointment Department of Radiology, [facility], in [place], [place] [address] [place] [phone] Francia Luque MPAS, P.A.-CElodia [address] [place] [phone] 05/21/2024 12:30 PM CDT Diagnostic Division of Pulmonary Medicine in [place], [place] [address] [place] [phone] Francia Luque MPAS, P.A.-C. [address] [place] [phone] 05/21/2024 1:30 PM CDT Office Visit Division of Pulmonary Medicine in [place], [place] [address] [place] [phone] Francia Luque MPAS, P.A.-C. [address] [place] [phone] documented as of this encounter Visit Diagnoses Not on filedocumented in this encounter Care Teams Case Management Manager Relationship Specialty Start Date End Date Elsewhere, Pcp PCP - General Internal Medicine 01/14/19 documented as of this encounter
== END 2024-03-15 14:32 | disposition home or self-care (01) ==
LOC: NFLDREF 14:31
PROVIDERS: PCP Internal Medicine; Visit Provider Nurse Practitioner Family
DX: N99.521 Infection of incontinent external stoma of urinary tract (principal); B96.20 Unspecified Escherichia coli [E. coli] as the cause of diseases classified elsewhere; B96.1 Klebsiella pneumoniae [K. pneumoniae] as the cause of diseases classified elsewhere
CPT/HCPCS: 87070; 87086; 87186

== ENCOUNTER 2024-06-03 14:32 | Outpatient (CLI) | payer MEDICARE, BC, SELFPAY ==
--- OUTSIDE RECORDS SUMMARY | 2024-06-03 14:36 | XMS_ITS ---
Author Organization [facility] Address [address] [place] [address] Care Team Providers Care Baker Head Name Role Phone Unavailable Unavailable Unavailable Surgery Details Not on file Complications Check Surgery Details section. Procedure Estimated Blood Loss Check Surgery Details section. Procedure Findings Check Surgery Details section. Procedure Specimens Taken Check Surgery Details section.
--- OUTSIDE RECORDS SUMMARY | 2024-06-03 14:36 | XMS_ITS | Encounter Summary ---
Author Organization [facility] Address [address] [place] [address] Care Team Providers Care Quality Control Tech Name Role Phone Elsewhere, Pcp Primary Care Provider Unavailabl e Encounter Details Date Type Department Care Team (Late st Contact Info) Description 05/22/2024 CPAP Download Remote Patient Monitoring [facility] [address] [place] [phone] [facility], Provider, M.B., Ph.D. Social History Tobacco Use Types Packs/Day Years Used Date Smoking Tobacco: Never Smokeless Tobacco: Never Alcohol Use Standard Drinks/Week Comments Yes 5 (1 standard drink = 0.6 oz pur e alcohol) [facility] Utilities Answer Date Recorded In the past 12 months has [facility] electric, gas, oil, or water [employer] threatened to shut off services in your home? No 05/20/2024 Humiliation, Afraid, Rape, and Kick questionnair e [...] often do you attend chur ch or taoism services? 1 to 4 times per year 12/19/2022 Do you belong to any clubs o r organizations such as confucianist groups, unions, fraternal or athletic groups, or [...] and heating? Not hard at all 12/19/2022 [facility] - [facility] Questionnaire Answer Date [...] to strenuous exercise (like a brisk walk)? 6 days 05/20/2024 On average, how many minutes do you engage in exercise at this level? 20 min 05/20/2024 Hunger Vital Sign Answer Date Recorded Within the past 12 months, y ou worried that your food would run out before you got the money to buy more. Never true 05/20/20 24 Within the past 12 months, t he food you bought just didn't last and you didn't have money to get more. Never true 05/20/2024 PRAPARE - Transportation Answer Date Re corded In the past 12 months, has l ack of transportation kept you from medical appointments or from getting medications? No 04/29 In the past 12 months, has l ack of transportation kept you from meetings, work, or from getting things needed for daily living? No 05/20/2024 Nutrition Answer Date Recorded On average, how many serving s of fruits and vegetables do you eat per day (serving size is equal to 1 cup or approximately the size of a tennis ball)? 3-5 05/20/2024 Dental Answer Date Recorded Dental: Regular Dentist Yes 02/05/20 21 Employment Answer Date Recorded Employment status Retired 05/20/2024 Housing Stability Answer Date Recorded What is your living situation today? I have a [facility] place to live 05/20/2024 Education Answer Date Recorded What is the [...] Department Care Team (Latest Contact Info) Description 06/06/2024 8:00 AM CDT Appointment Outpatient Procedure Center in [address] [phone] Linda Engle M.D. [address] [place] [phone] Discharge Disposition: Home or Self Care 06/10/2024 10:00 AM CDT Clinical Communication Virtual Review in [place], [place] [address] [place] [phone] 06/13/2024 7:00 AM CDT Appointment Department of Laboratory Medicine and Pathology, [facility], in [place], [place] [address] [place] [phone] Devin Jones MPAS, P.A.-C. [address] [place] [phone] 06/13/2024 7:30 AM CDT Lab Department of Urology in [place], [place] [address] [place] [phone] Devin Jones MPAS, P.A.-C. [address] [place] [phone] 06/13/2024 9:00 AM CDT Appointment Department of Radiology, [facility], in [place], [place] [address] [place] [phone] Devin Jones MPAS, P.A.-C. [address] [place] [phone] 06/13/2024 1:30 PM CDT Office Visit Department of Urology in [place], [place] [address] [place] [phone] Devin Jones MPAS, P.A.-CElodia [address] [place] [phone] 06/13/2024 3:15 PM CDT Education Department of Urology in [place], [place] [address] [place] [phone] Abelardo Anna P.A.-CElodia [address] [place] [phone] 08/19/2024 9:00 AM DIRECTOR TRANSPORTATION Diagnostic Division of Pulmonary Medicine in [place], [place] [address] [place] [phone] Francia Luque MPAS, P.A.-CElodia [address] [place] [phone] documented as of this encounter Visit Diagnoses Not on filedocumented in this encounter Care Teams Quality Control Tech Relationship Specialty Start Date End Date Elsewhere, Pcp PCP - General Internal Medicine 01/14/19 documented as of this encounter
--- OUTSIDE RECORDS SUMMARY | 2024-06-03 14:36 | XMS_ITS ---
Author Organization [facility] Address [address] [place] [address] Care Team Providers Care Medication Specialist Name Role Phone Elsewhere, Pcp Primary Care [...] Hyperlipidemia Diabetes Mellitus Type 2 Without Complication Overview (03/05/2019): pt states that he is diabetic and is supposed to lose weight, no medications prescribed Arthritis Current Oncology Plans No current plan information found. Past Plans Urology Plan Name Start Date Discontinue Date Treatment Medications Discontinue Reason Plan Provider BCG LIVE (INDUCTION) 50 MG/ 50 ML WEEKLY FOR 6 WEEKS 05/21/2019 07/01/2021 BCG live (Fel[facility] BCG) Therapy Complete Abelardo Anna P.A.-C. Radiation Treatments * No radiation treatments are documented for this patient in [facility]. Treatments may have been administered in another [...]
--- OUTSIDE RECORDS SUMMARY | 2024-06-03 14:36 | XMS_ITS | Referral Summary ---
Author Organization [facility] Address [address] [place] [address] Care Team Providers Care Electrician Front Name Role Phone Elsewhere, Pcp Primary Care Provider Unavailabl e Source Comments Patient records contain information from all sites at [facility]. For routine questions regarding patient records, call [phone] during business hours, M-F 8:00 AM - 5:00 PM Central Time. Record requests for emergency care only can be directed to [phone] at any time.[facility] Encounters Date Type Department Care Team Description 05/22/2024 CPAP Download Remote Patient Monitoring [facility] [address] [place] [address] [facility], Britany Pimentel, Ph.D. 05/21/2024 10:30 AM CDT - 05/21/2024 11:59 PM CDT Hospital Encounter Department of Radiology, [facility], in [place], [place] [address] [place] [phone] Francia Luque MPAS, P.A.-C. Lung Interstitial Disease (HCC) Discharge Disposition: Home or Self Care 05/21/2024 1:30 PM CDT Office Visit Division of Pulmonary Medicine in [place], [place] [address] [place] [phone] Francia Luque MPAS, P.A.-C. Lung Interstitial Disease (HCC) (Primary Dx); COVID-19 Infection 05/20/2024 1:00 PM CDT Clinical Communication Virtual Review in [place], [place] 200 [place] [address] Pre-visit Intake 04/21/2024 CPAP Download Remote Patient Monitoring [facility] [address] [place] [phone] [facility], Britany Pimentel, Ph.D. 03/21/2024 CPAP Download Remote Patient Monitoring [facility] [address] [place] [address] [facility], Britany Pimentel, Ph.D. 03/21/2024 8:56 AM CDT - 03/21/2024 11:59 PM CDT Hospital Encounter Outpatient Procedure Center in [address] [phone] Linda Engle M.D. 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 10 mL 2 01/15/2024 Active albuterol 90 mcg/actuation inhaler 2 puffs every 6 (six) hours as needed. 05/09/2024 Active triamcinolone (Kenalog) 0.147 mg/g topical spray Apply 1 spray topically. 12/18/2023 Active predniSONE (Deltasone) 5 mg tablet Take 4 tablets (20 mg total) by mouth daily for 7 days, THEN 3 tablets (15 mg total) daily for 7 days, THEN 2 tablets (10 mg total) daily for 7 days, THEN 1 tablet (5 mg total) daily for 7 days. 70 tablet 05/21/2024 06/18/2024 Active Hospital, Clinic, or Other Facility Administered [...] drink = 0.6 oz pur e alcohol) [facility] Utilities Answer Date Recorded In the past 12 months has e electric, gas, oil, or water company threatened to shut off services in your [...] often do you attend chur ch or advent services? 1 to 4 times per year 12/19/2022 Do you belong to any clubs o r organizations such as christian groups, unions, fraternal or athletic groups, or [...] and heating? Not hard at all 12/19/2022 [facility] [place] of Occupat ional Health - Occupational Stress [...] your living situation today? I have a [facility] [place] place to live 05/20/2024 Education Answer Date [...] Sign Reading Time Taken Comments Blood Pressure 115/84 05/21/2024 1:25 PM CDT Pulse 108 05/21/2024 1:25 PM CDT Temperature 36.3 ??C (97.4 ??F) 05/21/2024 1:25 PM CD T Respiratory Rate 15 11/24/2019 8:53 AM CDT Oxygen Saturation 94% 05/21/2024 1:25 PM CDT Inhaled Oxygen Concentration - - Weight 113 kg (250 lb 3.6 oz) 05/21/2024 1:25 PM CDT Height 185 cm (6' 0.84) 05/21/2024 1:25 PM CDT Body Mass Index 33.16 05/21/2024 1:25 PM CDT Plan of Treatment Upcoming Encounters Date Type Department Care Team (Latest Contact Info) Description 06/06/2024 8:00 AM CDT Appointment Outpatient Procedure Center in [address] [phone] Linda Engle M.D. [address] [place] [phone] Discharge Disposition: Home or Self Care 06/10/2024 10:00 AM CDT Clinical Communication Virtual Review in [place], [place] 200 [place] [phone] 06/13/2024 7:00 AM CDT Appointment Department of Laboratory Medicine and Pathology, [facility] in [place], [place] [address] [place] [phone] Devin Jones MPAS, P.A.-C. [address] [place] [phone] 06/13/2024 7:30 AM CDT Lab Department of Urology in [place], [place] [address] [place] [phone] Devin Jones MPAS, P.A.-C. [address] [place] [phone] 06/13/2024 9:00 AM CDT Appointment Department of Radiology, [facility], in [place], [place] [address] [place] [address] Devin Jones MPAS, P.A.-CElodia [address] [place] [phone] 06/13/2024 1:30 PM CDT Office Visit Department of Urology in [place], [place] [address] [place] [phone] Devin Jones MPAS, P.A.-C. [address] [place] [phone] 06/13/2024 3:15 PM CDT Education Department of Urology in [place], [place] [address] [place] [address] Abelardo Anna P.A.-CElodia [address] [place] [phone] 08/19/2024 9:00 AM DIGITAL PRINTER Diagnostic Division of Pulmonary Medicine in [place], [place] [address] [place] [phone] Francia Luque MPAS PLisaCElodia [address] [place] [phone] Medical Devices Implanted Type Area Hat And Cap Opener Device Identifier Shelf Expiration Date Model / Serial / Lot Clp Hrzn Ti 24 Clp Tiago - [id number] Implanted:Qty : 1 on 10/17/2019 by Alejandro Headley M.D. at [facility] Hardware e.g. pins/screws/ rods [employer] [id number] 03/18/2024 [id number] / / [id number] Clp Hrzn Ti 6 Clp Lg Orng - [id number] Implanted:Qty : 1 on 10/17/2019 by Alejandro Headley M.D. at [facility] Hardware e.g. pins/screws/ rods [employer] [id number] 02/27/2024 [id number] / / [id number] Clp Hrzn Ti 6 Clp Lg Orng - [id number] Implanted:Qty : 1 on 10/17/2019 by Alejandro Headley M.D. at [facility] Hardware e.g. pins/screws/ rods [employer] [id number] 02/27/2024 [id number] / / [id number] Clp Hrzn Ti 24 Clp Md Tiago - [id number] Implanted:Qty : 1 on 10/17/2019 by Alejandro Headley M.D. at [facility] Hardware e.g. pins/screws/ rods [employer] [id number] 03/04/2023 [id number] / / [id number] Clp Hrzn Ti 24 Clp Md Tiago - [id number] Implanted:Qty : 1 on 10/17/2019 by Alejandro Headley M.D. at [facility] Hardware e.g. pins/screws/ rods [employer] [id number] 12/06/2020 [id number] / / [id number] Clp Hrzn Ti 6 Clp Lg Orng - [id number] Implanted:Qty : 1 on 10/17/2019 by Alejandro Headley M.D. at [facility] Hardware e.g. pins/screws/ rods [employer] [id number] / / Clp Hrzn Ti 6 Clp Lg Orng - [id number] Implanted:Qty : 1 on 10/17/2019 by Alejandro Headley M.D. at [facility] Hardware e.g. pins/screws/ rods [employer] [id number] / / Clp Hrzn Ti 6 Clp Lg Orng - [id number] Implanted:Qty : 1 on 10/17/2019 by Alejandro Headley M.D. at [facility] Hardware e.g. pins/screws/ rods [employer] [id number] / / Clp Hrzn Ti 6 Clp Lg Orng - [id number] Implanted:Qty : 1 on 10/17/2019 by Alejandro Headley M.D. at [facility] Hardware e.g. pins/screws/ rods [employer] [id number] / / Clp Hrzn Ti 6 Clp Lg Orng - [id number] Implanted:Qty : 1 on 10/17/2019 by Alejandro Headley M.D. at [facility] Hardware e.g. pins/screws/ rods [employer] [id number] / / Clp Hrzn Ti 6 Clp Lg Orng - [id number] Implanted:Qty : 1 on 10/17/2019 by Alejandro Headley M.D. at [facility] Hardware e.g. 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) OPHTHALMOLOGY IMAGE EXAM Routine 11/09/2023 12:00 AM CDT COMPREHENSIVE METABOLIC PANEL, S/P Routine 06/08/2023 6:43 AM CDT Malignant Neoplasm Of Bladder (HCC) HEMOGLOBIN A1C, B Routine 08/02/2019 10:39 AM DIGITAL PRINTER Malignant Neoplasm Of Bladder (HCC) Symptom Urinary LIPID PANEL, S Routine 07/24/2015 6:41 AM DIGITAL PRINTER from Last 3 Months or Most Recently Relevant to Health Maintenance Results * Pulmonary Function Tests (05/21/2024 12:12 PM CDT) FVC 2.83 L 05/21/2024 4:58 PM CDT [facility] FEV1 2.56 L 05/21/2024 4:58 PM CDT [facility] FEV1/FVC 90.55 % 05/21/2024 4:58 PM CDT [facility] MNV58-00% 4.39 L/s 05/21/2024 4:58 PM CDT [facility] PEF PRE 13.46 L/s 05/21/2024 4:58 PM CDT [facility] PIF PRE 9.29 L/s 05/21/2024 4:58 PM CDT [facility] FEF 50 % FIF 50 PRE 62.74 % 05/21/2024 4:58 PM CDT [facility] FET PRE 4.82 sec 05/21/2024 4:58 PM CDT [facility] DLCO 15.70 ml/(min*mm Hg) 05/21/2024 4:58 PM CDT [facility] VA 3.81 L 05/21/2024 4:58 PM CDT [facility] PulseRest 114.00 1/min 05/21/2024 4:58 PM CDT [facility] F2EmuSxim 95.00 % 05/21/2024 4:58 PM CDT [facility] PulseExer 131.00 1/min 05/21/2024 4:58 PM CDT [facility] EXER TIME 1.50 min 05/21/2024 4:58 PM CDT [facility] STEP HEIGHT PRE 5.00 Inch 05/21/2024 4:58 PM CDT [facility] TLC 4.96 L 05/21/2024 4:58 PM CDT [facility] FRCPLETH PROVBASE 2.55 L 05/21/2024 4:58 PM CDT [facility] RV 2.08 L 05/21/2024 4:58 PM CDT [facility] RV % TLC PRE 42.04 % 05/21/2024 4:58 PM CDT [facility] 05/21/2024 12:1 2 PM CDT Impressions [facility] - 05/21/2024 4:58 PM CDT Abnormal study. There is moderate restriction by total lung capacity. Diffusion capacity, not corrected for hemoglobin is moderately reduced consistent with a pulmonary parenchymal and/or vascular process, or anemia. Oxygenation at rest and with step exercise is normal. Compared to 11/17/2023, TLC has increased. Narrative Procedure Note Brennan Nesbitt M.D. - 05/21/2024 IMPRESSION: Abnormal study. There is moderate restriction by total lung capacity.Diffusion capacity, not corrected for hemoglobin is moderately reducedconsistent with a pulmonary parenchymal and/or vascular process, oranemia. Oxygenation at rest and with step exercise is normal. Compared to 11/17/2023, TLC has increased. Francia LAMAR, PElodiaAHueC. PFT ORDERA BLES [facility] NA * CT Chest without IV Contrast (05/21/2024 11:28 AM CDT) Anatomical Region Laterality Modality Chest, Thoracic RST LOS, Tho racic ARZ LOS, Thoracic FLA LOS N/A Computed Tomography, Compute d Tomography Impressions 05/21/2024 11:49 AM CDT Overall unchanged findings of fibrotic interstitial lung disease with CT pattern indeterminate for UIP. 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 Narrative 05/21/2024 11:49 AM CDT EXAM: CT CHEST WITHOUT IV CONTRAST. Additional expiratory and prone images obtained. COMPARISON: CT chest 03/14/2023. FINDINGS: Diffuse mosaic attenuation and patchy groundglass opacities with architectural distortion and minimal traction bronchiectasis. Slightly predominant subpleural reticulations. No honeycombing. Moderate geographic air trapping on expiratory images. Findings are suggestive of fibrotic interstitial lung disease overall unchanged since 03/14/2023. No new or enlarging suspicious pulmonary nodules. No pleural effusions. Moderate coronary artery calcifications. No thoracic lymphadenopathy by size criteria. Hypertrophic degenerative change of the spine. No aggressive osseous lesions. Limited images of the upper abdomen: Cholelithiasis. Mild hepatic steatosis. Procedure Note Dahlia Scott M.D. - 05/21/2024 EXAM: CT CHEST WITHOUT IV CONTRAST. Additional expiratory and prone imagesobtained. COMPARISON: CT chest 03/14/2023. FINDINGS: Diffuse mosaic attenuation and patchy groundglass opacities witharchitectural distortion and minimal traction bronchiectasis. Slightlypredominant subpleural reticulations. No honeycombing. Moderate geographicair trapping on expiratory images. Findings are suggestive of fibrotic interstitial lung disease overall unchangedsince 03/14/2023. No new or enlarging suspicious pulmonary nodules. Nopleural effusions. Moderate coronary artery calcifications. No thoracic lymphadenopathy bysize criteria. Hypertrophic degenerative change of the spine. No aggressive osseouslesions. Limited images of the upper abdomen: Cholelithiasis. Mild hepaticsteatosis. IMPRESSION: Overall unchanged findings of fibrotic interstitial lung disease with CTpattern indeterminate for UIP. Given the diffuse mosaic attenuation inmoderate air trapping, fibrotic interstitial pneumonitis is apossibility. Francia LAMAR, P.A.-C. IMG CT PRO CEDURES * Intravitreal Injection, Pharmacologic Agent - OS - Left Eye (03/21/2024 9:25 AM CDT) Narrative Cristobal Handley M.D. - 03/21/2024 9:43 AM CDT Pre-Procedure Verification Pre-procedure verification conducted to verify correct patient identity, procedure to be performed and, as applicable, correct side and site. Patient consent obtained. 01/15/2024. Time Out Confirmed correct patient, procedure, site, and patient consented. Anesthesia Topical anesthesia was used. Pre/Post Procedure prep and meds used were Povidone 5% 1-10 drops, Povidone 10% swabs x 3 to lids and lashes, Proparacaine 0.5% 1-10 drops, Tetracaine 0.5% 1-10 drops, TheraTears. Procedure Details Injection: 2 mg aflibercept 2 mg/0.05 mL ??Route: intravitreal, Site: Left Eye ??[facility]: 52757-542-75 Balanced salt solution irrigation to injected eye after the injection was Done. Hand motion was present. Count fingers was correct. Reviewed instructions and patient verbalizes understanding. Ancillary Staff Ancillary Staff: Lizzy Reyes, RN and Radha Bradford, RN. Notes Patient oriented to outpatient procedure center. ??Reviewed process for scheduled procedure, and pain management including pain scale. Patient declines written post-procedure material or previously received brochure. ?? Information reviewed and understanding assessed by teach-back. ??Follow-up appointments discussed and return schedule given if requested. Eylea Left eye: Lot: [id number] Exp. 06/2024 SN [id number] Modified Betadine Linda Engle M.D. OPHTH CLINIC PROCEDU RES * Eyes Spectralis OCT-Ophthalmology Image Exam (11/09/2023 12:00 AM CDT) Narrative [facility] - 11/09/2023 8:17 AM CDT This order has been created and auto-finalized to support the import of images acquired without order. The clinical documentation to support these images can be found on the encounter that produced images. Provider Not In System IMG NON RAD IMAGI NG PROCEDURES IIUT NA * (ABNORMAL) Comprehensive Metabolic Panel (06/08/2023 [...] CDT Alejandro Headley M.D. LAB BLOOD ADD-ON [facility] [address] [place] [address], [facility] [address] [place] [address] * (ABNORMAL) Hemoglobin A1c (08/02/2019 10:39 AM DIGITAL PRINTER) Hemoglobin A1c, B 6.9(H) 4.0 - 5.6 % 08/02/2019 11:31 AM DIGITAL PRINTER DTL Comment: Hemoglobin A1c values greater than or equal to 6.5 percent are diagnostic for diabetes mellitus. ??Diagnosis should be confirmed by repeat testing. ??In diabetic patients, HbA1c goals should be discussed with healthcare provider. Blood (Blood, Venous) 08/02/2019 10:39 AM DIGITAL PRINTER 08/02/2019 11:02 AM DIGITAL PRINTER Abelardo Anna P.A.-C. LAB BLOOD ADD -ON [facility] [address] [place] [address], [facility] [address] [place] [address] * (ABNORMAL) Lipid Panel (07/24/2015 6:41 AM DIGITAL PRINTER) Cholesterol, Total 177 SeeComment MG/DL [facility] Comment: ? REFERENCE VALUE ? Desirable: < 200 ? Borderline high: 200 - 239 ? High: > or = 240 ? Triglycerides 182(H) SeeComment MG/DL [facility] Comment: ? REFERENCE VALUE ? Normal: <150 ? Borderline high: 150-199 ? High: 200-499 ? Very high: > or =500 ? Cholesterol, Non-HDL, Calculated 116 SeeComment MG/DL [facility] Comment: ? REFERENCE VALUE ? Desirable: <130 ? Above Desirable: 130-159 ? Borderline high: 160-189 ? High: 190-219 ? Very high: > or =220 ? Cholesterol, HDL, S 61 >=40 MG/DL [facility] Calculated LDL 80 SeeComment MG/DL [facility] Comment: ? REFERENCE VALUE ? Desirable: <100 ? Above Desirable: 100-129 ? Borderline high: 130-159 ? High: 160-189 ? Very high: > or =190 ? 07/24/2015 6:41 AM DIGITAL PRINTER 07/24/2015 6:41 AM DIGITAL PRINTER Alejandro Ha M.D. LAB BLOOD ADD-ON [facility] [address] [place] [address], [facility] from Last 3 Months or Most Recently Relevant to Health Maintenance Advance Directives For more information, please contact: [phone] * Full Code (Latest Code Status on [...] Answer Comments Full Code: Discussed Care Teams Electrician Front Relationship Specialty Start Date End Date Elsewhere, Pcp PCP - General Internal Medicine 01/14/19
--- OUTSIDE RECORDS SUMMARY | 2024-06-03 14:36 | XMS_ITS | Clinical Summary ---
Author Organization [facility] Address [address] [place] [address] Care Team Providers Care Bonderizer Name Role Phone Elsewhere, Pcp Primary Care Provider Unavailabl e Source Comments Patient records contain information from all sites at [facility]. For routine questions regarding patient records, call [phone] during business hours, M-F 8:00 AM - 5:00 PM Central Time. Record requests for emergency care only can be directed to [phone] at any time.[facility] Allergies Active Allergy Reactions Criticality Noted Date [...] (HCC) DME Order 1 Unspecified 05/13/2022 Active ipratropium (ATROVENT) 21 mcg (0.03 [...] CPAP Download Remote Patient Monitoring [facility] [address] [place] [phone] [facility], Britany Pimentel, Ph.D. 05/21/2024 1:30 PM CDT Office Visit Division of Pulmonary Medicine in [address] [phone] Francia Luque, BRIANDA, P.A.-C. Lung Interstitial Disease (HCC) (Primary Dx); COVID-19 Infection 05/21/2024 10:30 AM CDT - 05/21/2024 11:59 PM CDT Hospital Encounter Department of Radiology, [facility], in [address] [address] Francia Luque, BRIANDA, P.A.-C. Lung Interstitial Disease (HCC) Discharge Disposition: Home or Self Care 05/20/2024 1:00 PM CDT Clinical Communication Virtual Review in [address] [phone] Pre-visit Intake 04/21/2024 CPAP Download Remote Patient Monitoring [facility] [address] [place] [phone] [facility], Britany Pimentel, Ph.D. 03/21/2024 8:56 AM CDT - 03/21/2024 11:59 PM CDT Hospital Encounter Outpatient Procedure Center in [address] [phone] Linda Engle M.D. 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 from Last 3 Months Immunizations Name Administration [...] Estiven Paternal Grandfather abril Paternal Grandmother Layla Del Toro Social History Tobacco Use Types Packs/Day Years Used Date Smoking Tobacco: Never Smokeless Tobacco: Never Tobacco Cessation:Counseling Given: Not Answered Alcohol Use Standard Drinks/Week Comments Yes 5 (1 standard drink = 0.6 oz pur e alcohol) [facility] Utilities Answer Date Recorded In the [...] How often do you attend chur or yarsanism services? 1 to 4 times per year 12/19/2022 Do you belong to any clubs o r organizations such as restoration groups, unions, fraternal or athletic groups, or [...] and heating? Not hard at all 12/19/2022 [facility] [place] of Occupat ional Health - Occupational Stress [...] money to buy more. Never true 05/20/20 Within the past 12 months, t he [...] your living situation today? I have a [facility] to live 05/20/2024 Education Answer Date [...] AM CDT Appointment Outpatient Procedure Center in [address] [phone] Linda Engle M.D. [address] [place] [phone] Discharge Disposition: Home or Self Care 06/10/2024 10:00 AM CDT Clinical Communication Virtual Review in [place], [place] [address] [place] [address] 06/13/2024 7:00 AM CDT Appointment Department of Laboratory Medicine and Pathology, [facility], in [place], [place] [address] [place] [phone] Devin Jones MPAS, P.A.-CElodia [address] [place] [phone] 06/13/2024 7:30 AM CDT Lab Department of Urology in [place], [place] [address] [place] [address] Devin Jones MPAS, P.A.-C. [address] [place] [phone] 06/13/2024 9:00 AM CDT Appointment Department of Radiology, [facility], in [place], [place] [address] [place] [phone] Devin Jones MPAS, P.A.-CElodia [address] [place] [phone] 06/13/2024 1:30 PM CDT Office Visit Department of Urology in [place], [place] [address] [place] [address] Devin Jones MPAS, P.A.-C. [address] [place] [phone] 06/13/2024 3:15 PM CDT Education Department of Urology in [place], [place] [address] [place] [phone] Abelardo Anna P.A.-C. [address] [place] [phone] 08/19/2024 9:00 AM RIVET DRIVER Diagnostic Division of Pulmonary Medicine in [place], [place] [address] [place] [phone] Francia Luque MPAS, P.A.-C. [address] [place] [phone] Health Maintenance Due Date Last Done Comments CT Colonography 1955 Cologuard 1955 Colonoscopy 1955 Colorectal Cancer Screening 1955 Diabetic Office Visit with Foot Exam 1955 FIT 1955 Hepatitis C Screening 1955 Urine Albumin 1955 Hepatitis B Vaccines (1 of 3 - Risk 3-dose series) 2015 RSV vaccine - (32-36 weeks) or 60+ years (1 - Risk 60-74 years 1-dose series) 2015 Hemoglobin A1C 02/01/2020 08/02/2019, 07/24/2015 Lipid (Cholesterol) Screening 07/24/2020 07/24/2015 Depression Screening (Annual PHQ-2) 08/28/2023 COVID-19 Vaccine ( season) 2024 07/11/2022, 10/12/2021, 04/22/2021, Additional history exists Influenza Vaccine (#1) 2024 , 07/11/2022, 08/18/2021, Additional history exists Creatinine Level (Kidney Function Test) 06/08/2024 06/08/2023, 12/29/2022, 07/15/2022, Additional history exists Potassium Level 06/08/2024 06/08/2023, 05/0 11/2022, 04/04/2022, Additional history exists Sodium Level 06/08/2024 06/08/2023, 05/0 11/2022, 04/04/2022, Additional history exists Dilated Eye Exam 11/08/2024 11/09/2023, , 07/27/2022, Additional history exists Office Visit for Blood Pressure Check / Re-check 05/21/2025 05/21/2024 DTaP,Tdap,and Td Vaccines (3 - Td or Tdap) 08/10/2032 08/10/2022, 06/08/2012, 04/04/2008 Pneumococcal vaccine (65+ years) Completed 08/18/2021, 05/31/2018 Zoster Vaccines Completed 08/16/2023, 08/29, 07/15/2020 Fall Risk Screen (Annual) Completed 03/21/2024 HPV Vaccines Aged Out No longer eligi ble based on patient's age to complete this topic Medical Devices Implanted Type Area Piano Technician Device Identifier Shelf Expiration Date Model / Serial / Lot Clp Hrzn Ti 24 Clp Tiago - [id number] Implanted:Qty : 1 on 10/17/2019 by Alejandro Headley M.D. at [facility] Hardware e.g. pins/screws/ rods [employer] [id number] 03/18/2024 [id number] / / [id number] Clp Hrzn Ti 6 Clp Lg Orng - [id number] Implanted:Qty : 1 on 10/17/2019 by Alejandro Headley M.D. at [facility] Hardware e.g. pins/screws/ rods [employer] [id number] 02/27/2024 [id number] / / [id number] Clp Hrzn Ti 6 Clp Lg Orng - [id number] Implanted:Qty : 1 on 10/17/2019 by Alejandro Headley M.D. at [facility] Hardware e.g. pins/screws/ rods [employer] [id number] 02/27/2024 [id number] / / [id number] Clp Hrzn Ti 24 Clp Tiago - [id number] Implanted:Qty : 1 on 10/17/2019 by Alejandro Headley M.D. at [facility] Hardware e.g. pins/screws/ rods [employer] [id number] 03/04/2023 [id number] / / [id number] Clp Hrzn Ti 24 Clp Tiago - [id number] Implanted:Qty : 1 on 10/17/2019 by Alejandro Headley M.D. at [facility] Hardware e.g. pins/screws/ rods [employer] [id number] 12/06/2020 [id number] / / [id number] Clp Hrzn Ti 6 Clp Lg Orng - [id number] Implanted:Qty : 1 on 10/17/2019 by Alejandro Headley M.D. at [facility] Hardware e.g. pins/screws/ rods [employer] [id number] / / Clp Hrzn Ti 6 Clp Lg Orng - [id number] Implanted:Qty : 1 on 10/17/2019 by Alejandro Headley M.D. at [facility] Hardware e.g. pins/screws/ rods [employer] [id number] / / Clp Hrzn Ti 6 Clp Lg Orng - [id number] Implanted:Qty : 1 on 10/17/2019 by Alejandro Headley M.D. at [facility] Hardware e.g. pins/screws/ rods [employer] [id number] / / Clp Hrzn Ti 6 Clp Lg Orng - [id number] Implanted:Qty : 1 on 10/17/2019 by Alejandro Headley M.D. at [facility] Hardware e.g. pins/screws/ rods [employer] [id number] / / Clp Hrzn Ti 6 Clp Lg Orng - [id number] Implanted:Qty : 1 on 10/17/2019 by Alejandro Headley M.D. at [facility] Hardware e.g. pins/screws/ rods [employer] [id number] / / Clp Hrzn Ti 6 Clp Lg Orng - [id number] Implanted:Qty : 1 on 10/17/2019 by Alejandro Headley M.D. at [facility] Hardware e.g. pins/screws/ rods [employer] [id number] / / Procedures Procedure Name Priority Date/Time [...] HEMOGLOBIN A1C, B Routine 08/02/2019 10:39 AM RIVET DRIVER Malignant Neoplasm Of Bladder (HCC) Symptom Urinary LIPID PANEL, S Routine 07/24/2015 6:41 AM RIVET DRIVER from Last 3 Months or Most Recently Relevant to Health Maintenance Results * Pulmonary Function Tests (05/21/2024 12:12 PM CDT) FVC 2.83 L 05/21/2024 4:58 PM CDT [facility] FEV1 2.56 L 05/21/2024 4:58 PM CDT [facility] FEV1/FVC 90.55 % 05/21/2024 4:58 PM CDT [facility] ZZT14-77% 4.39 L/s 05/21/2024 4:58 PM CDT [facility] PEF PRE 13.46 L/s 05/21/2024 4:58 PM CDT [facility] PIF PRE 9.29 L/s 05/21/2024 4:58 PM CDT [facility] FEF 50 % FIF 50 PRE 62.74 % 05/21/2024 4:58 PM CDT [facility] FET PRE 4.82 sec 05/21/2024 4:58 PM CDT [facility] DLCO 15.70 ml/(min*mm Hg) 05/21/2024 4:58 PM CDT [facility] VA 3.81 L 05/21/2024 4:58 PM CDT [facility] PulseRest 114.00 1/min 05/21/2024 4:58 PM CDT [facility] T5DufNykz 95.00 % 05/21/2024 4:58 PM CDT [facility] PulseExer 131.00 1/min 05/21/2024 4:58 PM CDT [facility] EXER TIME 1.50 min 05/21/2024 4:58 PM CDT [facility] STEP HEIGHT PRE 5.00 Inch 05/21/2024 4:58 PM CDT [facility] TLC 4.96 L 05/21/2024 4:58 PM CDT [facility] FRCPLETH PROVBASE 2.55 L 05/21/2024 4:58 PM CDT [facility] RV 2.08 L 05/21/2024 4:58 PM CDT [facility] RV % TLC PRE 42.04 % 05/21/2024 4:58 PM CDT [facility] 05/21/2024 12:1 2 PM CDT Impressions [facility] - 05/21/2024 4:58 PM CDT Abnormal study. [...] to 11/17/2023, TLC has increased. Francia LAMAR, PElodiaA.IleanaC. PFT ORDERA BLES [facility] NA * CT Chest without IV Contrast [...] mg/0.05 mL ??Route: intravitreal, Site: Left Eye ??FORMERLY NAMED [facility]: [id number] Balanced salt solution irrigation to injected eye after the injection was Done. Hand motion was present. Count fingers was correct. Reviewed instructions and patient verbalizes understanding. Ancillary Staff Ancillary Staff: Lizzy Reyes RN and Radha Bradford RN. Notes Patient oriented to outpatient procedure center. ??Reviewed process for scheduled procedure, and pain management including pain scale. Patient declines written post-procedure material or previously received brochure. ?? Information reviewed and understanding assessed by teach-back. ??Follow-up appointments discussed and return schedule given if requested. Eylea Left eye: Lot: [id number] Exp. 06/2024 [id number] Modified Betadine Linda Engle M.D. [facility] [...] System IMG NON RAD IMAGI NG PROCEDURES IIME NA * (ABNORMAL) Comprehensive Metabolic Panel (06/08/2023 [...] M.D. LAB BLOOD ADD-ON Performing Organization Address [facility] [place] de Phone Number [facility] [address] [place] [address] * (ABNORMAL) Hemoglobin A1c (08/02/2019 10:39 AM RIVET DRIVER) [facility] Hemoglobin A1c, B 6.9(H) 4.0 - 5.6 % 08/02/2019 11:31 AM RIVET DRIVER DT Comment: Hemoglobin A1c values greater than or equal to 6.5 percent are diagnostic for diabetes mellitus. ??Diagnosis should be confirmed by repeat testing. ??In diabetic patients, HbA1c goals should be discussed with healthcare provider. Blood (Blood, Venous) 08/02/2019 10:39 AM RIVET DRIVER 08/02/2019 11:02 AM RIVET DRIVER Abelardo Anna P.A.-C. LAB BLOOD ADD -ON Performing Organization Address [facility] [place] de Phone Number [facility] [address] [place] [address] * (ABNORMAL) Lipid Panel (07/24/2015 6:41 AM RIVET DRIVER) [facility] Cholesterol, Total 177 SeeComment MG/DL [facility] Comment: ? REFERENCE VALUE ? Desirable: < 200 ? Borderline high: 200 - 239 ? High: > or = 240 ? Triglycerides 182(H) SeeComment MG/DL [facility] Comment: ? REFERENCE VALUE ? Normal: <150 ? Borderline high: 150-199 ? High: 200-499 ? Very high: > or =500 ? Cholesterol, Non-HDL, Calculated 116 SeeComment MG/DL [facility] Comment: ? REFERENCE VALUE ? Desirable: <130 ? Above Desirable: 130-159 ? Borderline high: 160-189 ? High: 190-219 ? Very high: > or =220 ? Cholesterol, HDL, S 61 >=40 MG/DL [facility] Calculated LDL 80 SeeComment MG/DL [facility] Comment: ? REFERENCE VALUE ? Desirable: <100 ? Above Desirable: 100-129 ? Borderline high: 130-159 ? High: 160-189 ? Very high: > or =190 ? 07/24/2015 6:41 AM RIVET DRIVER 07/24/2015 6:41 AM RIVET DRIVER Alejandro Ha M.D. LAB BLOOD ADD-ON [facility] [address] [place] [address], [facility] from Last 3 Months or Most Recently Relevant to Health Maintenance Advance Directives For more information, please contact: [phone] * Full Code (Latest Code Status on [...] Answer Comments Full Code: Discussed Care Teams Bonderizer Relationship Specialty Start Date End Date Elsewhere, Pcp PCP - General Internal Medicine 01/14/19
--- OUTSIDE RECORDS SUMMARY | 2024-06-03 14:37 | XMS_ITS | Encounter Summary ---
Author Organization [facility] Address [address] [place] [address] Care Team Providers Care Social Worker School Name Role Phone Elsewhere, Pcp Primary Care Provider Unavailabl e Reason for Referral * MRI/CAT/PET Scan (Routine) - Closed Specialty Diagnoses / Procedures Referred By Contac t Referred To Contact Radiology Diagnoses Lung Interstitial Disease (HCC) Procedures CT Chest without IV Contrast Francia Luque MPAS, P.A.-C. [address] [place] [phone] [facility] Referral ID Status Reason Start Date Expiration Date Visits Re quested Visits Authorized [id number] Closed 11/17/2023 11/16/2024 1 1 Reason for Visit * MRI/CAT/PET Scan (Routine) - Closed Specialty Diagnoses / Procedures Referred By Contac leland Referred To Contact Radiology Diagnoses Lung Interstitial Disease (HCC) Procedures CT Chest without IV Contrast Francia Luque MPAS, P.AElodia-CElodia [address] [place] [phone] [facility] Referral ID Status Reason Start Date Expiration Date Visits Re quested Visits Authorized [id number] Closed 11/17/2023 11/16/2024 1 1 Encounter Details Date Type Department Care Team (Latest Contact Info) Description 05/21/2024 10:30 AM CDT - 05/21/2024 11:59 PM CDT Hospital Encounter Department of Radiology, [facility], in [place], [place] [address] [place] [address] Francia Luque, BRIANDA, P.A.-C. [address] [place] [address] Lung Interstitial Disease (HCC) Discharge Disposition: Home or Self Care Social History Tobacco Use Types Packs/Day Years Used Date Smoking Tobacco: Never Smokeless Tobacco: Never Alcohol Use Standard Drinks/Week Comments Yes 5 (1 standard drink = 0.6 oz pur e alcohol) [facility] Utilities Answer Date Recorded In the past [...] How often do you attend chur or adventism services? 1 to 4 times per year 12/19/2022 Do you belong to any clubs o r organizations such as holiness groups, unions, fraternal or athletic groups, or [...] and heating? Not hard at all 12/19/2022 [facility] [place] of Occupat ional Health - Occupational Stress [...] Sig Dispensed Refills Start Date End Date albuterol 90 mcg/actuation inhaler 2 puffs every 6 (six) hours as needed. 05/09/2024 DME CPAPIndications:Obst ructive Sleep Apnea Adult DME Order 1 each 11/17/2023 DME Ostomy suppliesIndications: Conduit Ileal (HCC) DME Order 1 Unspecified 11 05/13/2022 DME Ostomy suppliesIndications: Conduit Ileal (HCC) DME Order 1 Unspecified 11 05/13/2022 DME Ostomy suppliesIndications: Conduit Ileal (HCC) DME Order 1 Unspecified 11 06/08/2023 DME Ostomy suppliesIndications: Conduit Ileal (HCC) DME Order 1 Unspecified 11 06/14/2023 ipratropium (ATROVENT) 21 mcg (0.03 %) nasal spray Administer 2 sprays into each nostril 2 (two) times a day. 30 mL 12 12/20/2022 lisinopriL (PRINIVIL,ZESTRIL) 2.5 mg tablet Take 2.5 mg by mouth daily. 07/22/2020 omeprazole (PriLOSEC) [address] capsule Take 20 mg by mouth every morning before breakfast. predniSONE (Deltasone) 5 mg tablet Take 4 tablets (20 mg total) by mouth daily for 7 days, THEN 3 tablets (15 mg total) daily for 7 days, THEN 2 tablets (10 mg total) daily for 7 days, THEN 1 tablet (5 mg total) daily for 7 days. 70 tablet 05/21/2024 06/18/2024 simvastatin (for_ZOCOR) 40 mg tablet Take 1 tablet by mouth every evening. 11/17/2015 triamcinolone (Kenalog) 0.147 mg/g topical spray Apply 1 spray topically. 12/18/2023 documented as of this encounter Plan of Treatment Upcoming Encounters Date Type Department Care Team (Latest Contact Info) Description 06/06/2024 8:00 AM CDT Appointment Outpatient Procedure Center in [address] [phone] Linda Engle M.D. [address] [place] [phone] Discharge Disposition: Home or Self Care 06/10/2024 10:00 AM CDT Clinical Communication Virtual Review in [place], [place] 200 [place] [address] 06/13/2024 7:00 AM CDT Appointment Department of Laboratory Medicine and Pathology, [facility] in [place], [place] [address] [place] [phone] Devin Jones MPAS, P.A.-C. [address] [place] [phone] 06/13/2024 7:30 AM CDT Lab Department of Urology in [place], [place] [address] [place] [phone] Devin Jones MPAS, P.A.-C. [address] [place] [phone] 06/13/2024 9:00 AM CDT Appointment Department of Radiology, [facility], in [place], [place] [address] [place] [phone] Devin Jones MPAS, P.A.-C. [address] [place] [phone] 06/13/2024 1:30 PM CDT Office Visit Department of Urology in [place], [place] [address] [place] [phone] Devin Jones MPAS, P.A.-C. [address] [place] [phone] 06/13/2024 3:15 PM CDT Education Department of Urology in [place], [place] [address] [place] [phone] Abelardo Anna P.A.-C. [address] [place] [phone] 08/19/2024 9:00 AM MISSION COORDINATOR Diagnostic Division of Pulmonary Medicine in [place], [place] [address] [place] [phone] Francia Luque MPAS, P.A.-C. [address] [place] [phone] documented as of this encounter Procedures Procedure Name Priority Date/Time Associated Diagnosis Comments CT CHEST WITHOUT IV CONTRAST RAD - Routine (most inpatients and all outpatients) 05/21/2024 11:28 AM CDT Lung Interstitial Disease (HCC) documented in this encounter Results * CT Chest without IV Contrast (05/21/2024 [...] Francia LAMAR, P.A.-C. IMG CT PRO CEDURES documented in this encounter Visit Diagnoses Diagnosis Lung Interstitial Disease (HCC) documented in this encounter Care Teams Social Worker School Relationship Specialty Start Date End Date Elsewhere, Pcp PCP - General Internal Medicine 01/14/19 documented as of this encounter
--- OUTSIDE RECORDS SUMMARY | 2024-06-03 14:37 | XMS_ITS | Encounter Summary ---
Author Organization [facility] Address [address] [place] [address] Care Team Providers Care Septic Tank Servicer Name Role Phone Elsewhere, Pcp Primary Care Provider Unavailabl e Reason for Referral * Outpatient (Routine) - Closed Specialty Diagnoses / Procedures Referred By Yohannes ha Referred To Contact Pulmonary Medicine Diagnoses Restrictive Lung Disease Dennis Luna M.D. [address] [place] [phone] [facility] Referral ID Status Reason Start Date Expiration Date Visits Re quested Visits Authorized [id number] Closed 10/22/2018 10/22/2019 1 1 ER MAKER Encounter Details Date Type Department Care Team (Late st Contact Info) Description 10/22/[address] [facility] [address] [place] [address] Dennis Luna M.D. [address] [place] [phone] Restrictive Lung Disease (Primary Dx) Social [...] AM CDT Appointment Outpatient Procedure Center in [address] [phone] Linda Engle M.D. [address] [place] [phone] Discharge Disposition: Home or Self Care 06/10/2024 10:00 AM CDT Clinical Communication Virtual Review in [place], [place] 200 [place] [address] 06/13/2024 7:00 AM CDT Appointment Department of Laboratory Medicine and Pathology, [facility] in [place], [place] [address] [place] [phone] Devin Jones MPAS, P.A.-C. [address] [place] [phone] 06/13/2024 7:30 AM CDT Lab Department of Urology in [place], [place] [address] [place] [phone] Devin Jones MPAS, P.A.-C. [address] [place] [phone] 06/13/2024 9:00 AM CDT Appointment Department of Radiology, [facility], in [place], [place] [address] [place] [phone] Devin Jones MPAS, P.A.-C. [address] [place] [phone] 06/13/2024 1:30 PM CDT Office Visit Department of Urology in [place], [place] [address] [place] [phone] Devin Jones MPAS, P.A.-C. [address] [place] [phone] 06/13/2024 3:15 PM CDT Education Department of Urology in [place], [place] [address] [place] [address] Abelardo Anna P.A.-C. [address] [place] [phone] 08/19/2024 9:00 AM HAMPER MAKER Diagnostic Division of Pulmonary Medicine in [place], [place] [address] [place] [phone] Francia Luque MPAS, P.A.-C. [address] [place] [phone] Scheduled Referrals Name Type Priority Associated Diagnoses [...] documented as of this encounter Care Teams Septic Tank Servicer Relationship Specialty Start Date End Date Elsewhere, Pcp PCP - General Internal Medicine 01/14/19 documented as of this encounter
--- OUTSIDE RECORDS SUMMARY | 2024-06-03 14:37 | XMS_ITS | Encounter Summary ---
Author Organization [facility] Address [address] [place] [phone] Care Team Providers Care Gas Plant Repairer Name Role Phone Elsewhere, Pcp Primary Care Provider Unavailabl e Reason for Visit * Outpatient (Routine) - Closed Specialty Diagnoses / Procedures Referred By Yohannes ha Referred To Contact Pulmonary Medicine Francia Luque MPAS, P.A.-C. [address] [place] [phone] [facility] Referral ID Status Reason Start Date Expiration Date Visits Re quested Visits Authorized [id number] Closed 11/17/2023 05/18/2025 1 1 Encounter Details Date Type Department Care Team ([facility] st Contact Info) Description 05/21/2024 1:30 PM CDT Office Visit Division of Pulmonary Medicine in [place], [place] [address] [place] [phone] Francia Luque MPAS, P.A.-C. [address] [place] [phone] Lung Interstitial Disease (HCC) (Primary Dx); COVID-19 Infection Social History Tobacco Use Types Packs/Day Years Used Date Smoking Tobacco: Never Smokeless Tobacco: Never Alcohol Use Standard Drinks/Week Comments Yes 5 (1 standard drink = 0.6 oz pur e alcohol) [facility] Utilities Answer Date Recorded In the past 12 months has th e [employer], [employer], oil, or water [employer] threatened to shut off services in your [...] often do you attend chur ch or christian services? 1 to 4 times per year 12/19/2022 Do you belong to any clubs o r organizations such as rastafari groups, unions, fraternal or athletic groups, or [...] and heating? Not hard at all 12/19/2022 [facility] of Occupat ional Health - Occupational Stress [...] your living situation today? [facility] 05/20/2024 Education Answer Date [...] PM CDT documented as of this encounter Last Filed Vital Signs Vital Sign Reading Time Taken Comments Blood Pressure 115/84 05/21/2024 1:25 PM CDT Pulse 108 05/21/2024 1:25 PM CDT Temperature 36.3 ??C (97.4 ??F) 05/21/2024 1:25 PM CD T Respiratory Rate - - Oxygen Saturation 94% 05/21/2024 1:25 PM CDT Inhaled Oxygen Concentration - - Weight 113 kg (250 lb 3.6 oz) 05/21/2024 1:25 PM CDT Height 185 cm (6' 0.84) 05/21/2024 1:25 PM CDT Body Mass Index 33.16 05/21/2024 1:25 PM CDT documented in this encounter Patient Instructions * Patient Instructions* Francia Luque MPAS, P.A.-C. - 05/21/2024 1:30 PM CDT 38 documented in this encounter Progress Notes * Francia Luque MPAS, P.A.-C. - 05/21/2024 1:30 PM CDT Images from the original note were not included. SUBJECTIVE REASON FOR VISIT Follow up evaluation of Interstitial Lung Disease HISTORY OF PRESENT ILLNESS aCyden Arnold is a 69 y.o. male with a past medical history significant for interstitial lung disease, COVID, arrhythmia, arthritis, malignant neoplasm of the bladder s/p cystectomy & stoma placement 09/2019, sleep apnea, seasonal pneumonia, diabetes-no medications prescribed, and HLD. Recall, Mr. Arnold is an established patient in the [facility]. He was first evaluated in 10/[address] Vicente until his snf from patient care in 2022. Upon his initial presentation, there was no evidence or symptoms of connective tissue disease. Autoimmune, hypersensitivity, and myositis serologies were all negative. A BAL demonstrated a mild increase of eosinophils at 10% and a largely predominant neutrophil count with no increased levels of lymphocytes. There were no known exposures or other pulmonary insults. He was placed on a prednisone taper with a significant improvement in his cough and shortness of breath and supplemental oxygen demands. Simultaneously, he was starting BCG treatment for bladder cancer. At one point, his shortness of breath returned and he was placed on prednisone. Treatment with azathioprine was recommended and delayed until 2020 when all of Mr. Arnold's surgeries for bladder cancer were completed. He had stopped all immunosuppression therapy (including prednisone and azathioprine) in 08/2022 with no immediate return of symptoms. --On 03/15/2023, Chest CT imaging demonstrated a decrease in mediastinal adenopathy. Pulmonary function testing demonstrated moderate restriction which was stable and improved DLCO. --On 11/17/2023, Mr. Arnold reported no significant change in his breathing. He had limited movement since 05/2023 due to issues with wounds at his stoma site. He noticed getting winded more easily compared to the prior year. Pulmonary function testing demonstrated moderate restriction and remained stable as far back as 04/2020. CXR imaging suggested an increase in fibrotic reticular opacities compared to 11/2022 with kvdi-gu-[id number] comparison showing significant difference in resolution clarity. He underwent an oxygen titration study which showed no evidence of oxygen desaturation at rest or with exertion. With no significant change in pulmonary function testing, some of the increased work of breathing with exertion was attributed to deconditioning and elevated BMI (35.45). Today, Mr. Arnold reports no significant breathing issues until less than a month ago when he tested positive for COVID. He was placed on Paxlovid, but states he did not get back to his baseline. His local provider placed him on prednisone 20 mg twice daily as well as azithromycin 500 mg daily for5 days. He was also provided an albuterol MDI which helped with some of his shortness of breath. Jakobtill does not feel he was back to his bags line. He states his legs are weak and he was napping frequently. He states he can sleep until 07:00 in the morning and by 09:00 he was taking a nap. He also states frequent naps in the afternoon. He is on CPAP and reports compliance. The following portions of the patient's history were reviewed and updated as appropriate: allergies, current medications, family history, medical history, social history, surgical history and problemlist. REVIEW OF SYSTEMS A full review of systems was obtained. Pertinent positives and negatives are noted in the HPI; all other review of systems were negative. MEDICAL HISTORY Past Medical History: Diagnosis Date Arrhythmia pt states hx of PVC's Arthritis Cataract Senile 05/27/2019 Diabetes Mellitus NOS pt states that he is diabetic and is supposed to lose weight, no medications prescribed Edema Macular Cystoid Left Hyperlipidemia Impaired Fasting Glucose Lung Interstitial Disease (HCC) Malignant Neoplasm Of Bladder (HCC) Obesity Body Mass Index 30-39.9 Adult Other Specified Health Status ocular oclusion Pain Knee Bilateral Pneumonia usually gets bronchitis or pneemonia nearly evrey winter Sleep Apnea 2021 OBJECTIVE PHYSICAL EXAM Vitals: Blood Pressure: 115/84 (05/21/2024 1:25 PM) Temperature: 36.3 ??C (05/21/2024 1:25 PM) Temp Source: Temporal (05/21/2024 1:25 PM) Pulse Rate: 108 (05/21/2024 1:25 PM) BMI (Calculated): 33.2 kg/m?? (05/21/2024 1:25 PM) SpO2: 94 % (05/21/2024 1:25 PM) Height: 185 cm (05/21/2024 1:25 PM) Weight: 113 kg (05/21/2024 1:25 PM) General: Pleasant male in no acute respiratory distress and no conversational dyspnea. The patient appears well nourished and put together. Skin: No generalized rash. Lymph: No cervical, submandibular or supraclavicular lymphadenopathy. Peripheral vessels: JVP not elevated. Lungs: Fine, dry, inspiratory crackles bilateral bases Heart: Regular rate and rhythm, normal S1 and S2. No murmurs, rubs or gallops. Extremities: No clubbing or cyanosis. No asymmetry, nodules, or erythema in the upper or lower extremities. No pedal edema. Neuro: Alert and oriented to time, place and person. No obvious neurological deficits noted. Psych: Normal mood and affect. DIAGNOSTICS I have reviewed the patient's current laboratory, imaging, and other diagnostic studies. Clinicallysignificant findings are as follows: CT CHEST without IV Contrast: Result Notes Details Reading Physician Reading Date Result Priority Dahlia Scott M.D. [phone] 05/21/2024 RAD - Routine (most inpatients and all outpatients) Narrative & Impression EXAM: CT CHEST WITHOUT IV CONTRAST. Additional expiratory and prone images obtained. COMPARISON: CT chest 03/14/2023. FINDINGS: Diffuse mosaic attenuation and patchy groundglass opacities with architectural distortion and minimal traction bronchiectasis. Slightly predominant subpleural reticulations. No honeycombing. Moderategeographic air trapping on expiratory images. Findings are suggestive of fibrotic interstitial lung disease overall unchanged since 03/14/2023. No new or enlarging suspicious pulmonary nodules. No pleural effusions. Moderate coronary artery calcifications. No thoracic lymphadenopathy by size criteria. Hypertrophic degenerative change of the spine. No aggressive osseous lesions. Limited images of the upper abdomen: Cholelithiasis. Mild hepatic steatosis. IMPRESSION: Overall unchanged findings of fibrotic interstitial lung disease with CT pattern indeterminate for UIP. 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 Exam Ended: 05/21/24 11:28 CDT Last Resulted: 05/21/24 11:49 CDT Pulmonary Functions Testing Results (pre-bronchodilator): Date FVC %pred DLCO %pred TLC %pred FEV1 %pred FEV1/FVC 05/21/2024 62% 56% uncorrected 63% 75% 90.5/119% 11/17/2023 59% 66% uncorrected 56% 69% 88.0/116% 03/14/2023 63% 74% uncorrected 67% 72% 86.8/115 06/20/2022 70% 77% uncorrected 57% 80% 86.2/114% 06/08/2021 67% 78% 57% 76% 86.6/114% 05/12/2020 66% 75% 63% 77% 87.9/115% ASSESSMENT / PLAN ASSESSMENT I have personally reviewed the patient's PFT and CT CHEST exams with the patient. Medical problems are as follows: 1) Interstitial lung disease in an NSIP pattern on imaging, stable, possibly in remission, no longer requiring chronic immunosuppression therapy 2) Recent COVID infection treated with Paxlovid, prednisone, and azithromycin, 04/2024 3) Pulmonary function test demonstrating mild-moderate restriction and moderately reduced DLCO 4) History of hypoxemia requiring supplemental oxygen 5) History of bladder carcinoma s/p cystectomy and stoma placement 6) Deconditioning 7) Elevated BMI at 35.45 It was a pleasure seeing Mr. Arnold in the Pulmonary-Interstitial Lung Disease clinic today. He reports no issues with his breathing until he was diagnosed with COVID earlier this month. He was treated with Paxlovid and when he did not returned to baseline, his local provider prescribed prednisoneand azithromycin. He reported significantly better breathing while on the prednisone and worsening symptoms after completing the 5 day regimen. Pulmonary function testing has remained somewhat stablewith a slow and steady decline in DLCO. Chest CT imaging demonstrates no significant change in fibrosis. However, there appears to be increased ground-glass opacities, suggesting continued inflammation--perhaps due to the recent COVID infection. This may also be interfering with the diffusion capacity. It may be beneficial to complete a prednisone taper in an effort to reduce likely inflammation in the lungs. Mr. Arnold was in agreement with this. PLAN 1. Initiate a prednisone taper at 20 mg per day x7 days, then 15 mg per day x7 days, then 10 mg perday x7 days, then 5 mg per day x7 days, then off. 2. Obtain a pulmonary function test in 3 months. Results will be communicated via the portal. 3. Follow up in-person in the Interstitial Lung Disease Clinic when Mr. Arnold returns to [place] next Spring (6-9 months from now). No orders currently entered. Will wait on results of pulmonary function testing in 07/2024. PATIENT EDUCATION Ready to learn, no apparent learning barriers were identified; learning preferences include listening. Reviewed pulmonary function test and CT imaging and interpretation. Explained diagnosis and treatment plan in detail to Mr. Arnold with understanding verbalized. I did my best to answer all questions prior to the end of the visit today. The patient's evaluation was discussed with Dr. Jackson. BILLING Total time spent: 38 minutes, which included [id number] time during the encounter as well as one or more of the following: medical record review, documenting and ordering services, phone calls, family meetings, and/or communication with other healthcare professionals. documented in this encounter Plan of Treatment Upcoming Encounters Date Type Department Care Team (Latest Contact Info) Description 06/06/2024 8:00 AM CDT Appointment Outpatient Procedure Center in [address] [phone] Linda Engle M.D. [address] [place] [phone] Discharge Disposition: Home or Self Care 06/10/2024 10:00 AM CDT Clinical Communication Virtual Review in [place], [place] [address] [place] [phone] 06/13/2024 7:00 AM CDT Appointment Department of Laboratory Medicine and Pathology, [facility] in [place], [place] [address] [place] [phone] Devin Jones MPAS, P.A.-C. [address] [place] [phone] 06/13/2024 7:30 AM CDT Lab Department of Urology in [place], [place] [address] [place] [phone] Devin Jones MPAS, P.A.-C. [address] [place] [phone] 06/13/2024 9:00 AM CDT Appointment Department of Radiology, [facility], in [place], [place] [address] [place] [phone] Devin Jones MPAS, P.A.-C. [address] [place] [phone] 06/13/2024 1:30 PM CDT Office Visit Department of Urology in [place], [place] [address] [place] [phone] Devin Jones MPAS, P.A.-C. [address] [place] [phone] 06/13/2024 3:15 PM CDT Education Department of Urology in [place], [place] [address] [place] [phone] Abelardo Anna P.A.-C. [address] [place] [phone] 08/19/2024 9:00 AM FRUIT STUFFER Diagnostic Division of Pulmonary Medicine in [place], [place] [address] [place] [phone] Francia Luque, BRIANDA, PNori-C. 200 [place] [phone] Scheduled Orders Name Type Priority Associated Diagnoses Orde r Schedule Pulmonary Function Tests PFT Routine Lung Interstitial Disease (HCC) COVID-19 Infection Expected: 08/20/2024, Expires: 08/20/2025 documented as of this encounter Visit Diagnoses Diagnosis Lung Interstitial Disease (HCC)- Primary COVID-19 Infection documented in this encounter Care Teams Gas Plant Repairer Relationship Specialty Start Date End Date Elsewhere, Pcp PCP - General Internal Medicine 01/14/19 documented as of this encounter
--- OUTSIDE RECORDS SUMMARY | 2024-06-03 14:37 | XMS_ITS | Encounter Summary ---
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 [address] [place] [phone] [facility] Region Referral ID Status Reason Start Date Expiration Date V isits Requested Visits Authorized [id number] Authorized 11/10/2023 11/09/2024 3 3 Encounter Details Date Type Department Care Team (Latest Contact Info) Description 03/21/2024 8:56 AM CDT - 03/21/2024 11:59 PM CDT Hospital Encounter Outpatient Procedure Center in [address] [phone] Linda Engle M.D. [address] [place] [phone] Central Retinal Vein Occlusion With Macular Edema [...] and heating? Not hard at all 12/19/2022 [facility] Occupat ional [facility] - Occupational Stress Questionnaire Answer Date Recorded [...] place to sleep or slept in a custodial (including now)? No 12/19/2022 Nutrition Answer Date [...] onduit Ileal (HCC) DME Order 1 Unspecified 06/14/2023 ipratropium (ATROVENT) 21 mcg (0.03 %) [...] AM CDT Appointment Outpatient Procedure Center in [address] [phone] Linda Engle M.D. [address] [place] [phone] Discharge Disposition: Home or Self Care 06/10/2024 10:00 AM CDT Clinical Communication Virtual Review in [place], [place] 200 [place] [phone] 06/13/2024 7:00 AM CDT Appointment Department of Laboratory Medicine and Pathology, [facility] in [place], [place] [address] [place] [phone] Devin Jones MPAS, P.A.-C. [address] [place] [phone] 06/13/2024 7:30 AM CDT Lab Department of Urology in [place], [place] [address] [place] [phone] Devin Jones MPAS, P.A.-C. [address] [place] [phone] 06/13/2024 9:00 AM CDT Appointment Department of Radiology, [facility], in [place], [place] [address] [place] [phone] Devin Jones MPAS, P.A.-C. [address] [place] [phone] 06/13/2024 1:30 PM CDT Office Visit Department of Urology in [place], [place] [address] [place] [phone] Devin Jones MPAS, P.A.-C. [address] [place] [phone] 06/13/2024 3:15 PM CDT Education Department of Urology in [place], [place] [address] [place] [phone] Abelardo Anna P.A.-C. [address] [place] [phone] 08/19/2024 9:00 AM RAILROAD WORKER Diagnostic Division of Pulmonary Medicine in [place], [place] [address] [place] [phone] Francia Luque MPAS, P.A.-C. [address] [place] [phone] documented as of this encounter Procedures Procedure [...] mg/0.05 mL ??Route: intravitreal, Site: Left Eye ??[facility]: [id number] Balanced salt solution irrigation to injected eye after the injection was Done. Hand motion was present. Count fingers was correct. Reviewed instructions and patient verbalizes understanding. Ancillary Staff Ancillary Staff: Lizzy Reyes, RN and Radha rBadford, RN. Notes Patient oriented to outpatient procedure center. ??Reviewed process for scheduled procedure, and pain management including pain scale. Patient declines written post-procedure material or previously received brochure. ?? Information reviewed and understanding assessed by teach-back. ??Follow-up appointments discussed and return schedule given if requested. Eylea Left eye: Lot: [id number] Exp. 06/2024 [id number] Modified Betadine Linda Engle M.D. 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
--- OUTSIDE RECORDS SUMMARY | 2024-06-03 14:37 | XMS_ITS | Encounter Summary ---
Author Organization [facility] Address [address] [place] [address] Care Team Providers Care Continuous Vulcanizing Machine Operator Name Role Phone Elsewhere, Pcp Primary Care Provider Unavailabl e Encounter Details Date Type Department Care Team (Late st Contact Info) Description 02/19/2024 CPAP Download Remote Patient Monitoring [facility] [address] [place] [phone] [facility], Provider, M.B., Ph.D. Social History Tobacco Use [...] often do you attend chur ch or episcopalian services? 1 to 4 times per year 12/19/2022 Do you belong to any clubs o r organizations such as jainism groups, unions, fraternal or athletic groups, or [...] and heating? Not hard at all 12/19/2022 [facility] Occupat ional Health - Occupational [...] place to sleep or slept in a long-term (including now)? No 12/19/2022 Nutrition Answer Date [...] AM CDT Appointment Outpatient Procedure Center in [address] [phone] Linda Engle M.D. [address] [place] [phone] Discharge Disposition: Home or Self Care 06/10/2024 10:00 AM CDT Clinical Communication Virtual Review in [place], [place] 200 [place] [phone] 06/13/2024 7:00 AM CDT Appointment Department of Laboratory Medicine and Pathology, [facility] in [place], [place] [address] [place] [phone] Devin Jones MPAS, P.A.-C. [address] [place] [phone] 06/13/2024 7:30 AM CDT Lab Department of Urology in [place], [place] [address] [place] [phone] Devin Jones MPAS, P.A.-C. [address] [place] [phone] 06/13/2024 9:00 AM CDT Appointment Department of Radiology, [facility], in [place], [place] [address] [place] [address] Devin Jones MPAS, P.A.-C. [address] [place] [phone] 06/13/2024 1:30 PM CDT Office Visit Department of Urology in [place], [place] [address] [place] [phone] Devin Jones MPAS, P.A.-CElodia [address] [place] [phone] 06/13/2024 3:15 PM CDT Education Department of Urology in [place], [place] [address] [place] [phone] Abelardo nAna P.A.-C. [address] [place] [phone] 08/19/2024 9:00 AM [employer]SE WINDER Diagnostic Division of Pulmonary Medicine in [place], [place] [address] [place] [phone] Francia Luque, MPAS, P.A.-C. [address] [place] [phone] documented as of this encounter Visit Diagnoses Not on filedocumented in this encounter Care Teams Continuous Vulcanizing Machine Operator Relationship Specialty Start Date End Date Elsewhere, Pcp PCP - General Internal Medicine 01/14/19 documented as of this encounter
--- OUTSIDE RECORDS SUMMARY | 2024-06-03 14:37 | XMS_ITS | Encounter Summary ---
Author Organization [facility] Address [address] [place] [address] Care Team Providers Care Hook Puller Name Role Phone Elsewhere, Pcp Primary Care Provider Unavailabl e Encounter Details Date Type Department Care Team (Late st Contact Info) Description 04/21/2024 CPAP Download Remote Patient Monitoring [facility] 5 200 [place] [address] [facility], Provider, M.B., Ph.D. Social History Tobacco Use Types Packs/Day Years Used Date Smoking Tobacco: Never Smokeless Tobacco: Never Alcohol Use Standard Drinks/Week Comments Yes 5 (1 standard drink = 0.6 oz pur e alcohol) [facility] Utilities Answer Date Recorded In the past 12 months has [facility] electric, gas, oil, or water [employer] threatened to shut off services in your [...] often do you attend chur ch or voodoo services? 1 to 4 times per year [...] and heating? Not hard at all 12/19/2022 [facility] - Occup[facility] Stress Questionnaire Answer Date [...] your living situation today? [facility] 05/20/2024 Education Answer [...] AM CDT Appointment Outpatient Procedure Center in [address] [phone] Linda Engle M.D. [address] [place] [phone] Discharge Disposition: Home or Self Care 06/10/2024 10:00 AM CDT Clinical Communication Virtual Review in [place], [place] 200 [place] [address] 06/13/2024 7:00 AM CDT Appointment Department of Laboratory Medicine and Pathology, [facility], in [place], [place] [address] [place] [phone] Devin Jones MPAS, P.A.-C. [address] [place] [phone] 06/13/2024 7:30 AM CDT Lab Department of Urology in [place], [place] [address] [place] [address] Devin Jones MPAS, P.A.-C. [address] [place] [phone] 06/13/2024 9:00 AM CDT Appointment Department of Radiology, [facility], in [place], [place] [address] [place] [phone] Devin Jones MPAS, P.A.-C. [address] [place] [phone] 06/13/2024 1:30 PM CDT Office Visit Department of Urology in [place], [place] [address] [place] [address] Devin Jones MPAS, P.A.-CElodia [address] [place] [phone] 06/13/2024 3:15 PM CDT Education Department of Urology in [place], [place] [address] [place] [phone] Abelardo Anna P.A.-CElodia [address] [place] [phone] 08/19/2024 9:00 AM GRINDER LAP Diagnostic Division of Pulmonary Medicine in [place], [place] [address] [place] [phone] Francia Luque MPAS, P.A.-CElodia [address] [place] [phone] documented as of this encounter Visit Diagnoses Not on filedocumented in this encounter Care Teams Hook Puller Relationship Specialty Start Date End Date Elsewhere, Pcp PCP - General Internal Medicine 01/14/19 documented as of this encounter
--- OUTSIDE RECORDS SUMMARY | 2024-06-03 14:37 | XMS_ITS | Encounter Summary ---
Author Organization [facility] Address [address] [place] [address] Care Team Providers Care Returned Item Clerk Name Role Phone Elsewhere, Pcp Primary Care Provider Unavailabl e Encounter Details Date Type Department Care Team (Late st Contact Info) Description 05/16/2017 Historical Ophthalmology RST OPH Linda Engle M.D. [address] [place] [phone] Social History Tobacco Use Types Packs/Day Years [...] bladder cancer CDM Reports - EYEGEN Id: [id number] Status: Fnl documented in this encounter Plan of Treatment Upcoming Encounters Date Type Department Care Team (Latest Contact Info) Description 06/06/2024 8:00 AM CDT Appointment Outpatient Procedure Center in [address] [phone] Linda Engle M.D. [address] [place] [phone] Discharge Disposition: Home or Self Care 06/10/2024 10:00 AM CDT Clinical Communication Virtual Review in [place], [place] 200 [place] [address] 06/13/2024 7:00 AM CDT Appointment Department of Laboratory Medicine and Pathology, [facility], in [place], [place] [address] [place] [phone] Devin Jones, MPAS, P.A.-C. [address] [place] [phone] 06/13/2024 7:30 AM CDT Lab Department of Urology in [place], [place] [address] [place] [phone] Devin Jones MPAS, P.AElodia-C. [address] [place] [address] 06/13/2024 9:00 AM CDT Appointment Department of Radiology, [facility], in [place], [place] [address] [place] [address] Devin Jones MPAS, P.AElodia-C. [address] [place] [phone] 06/13/2024 1:30 PM CDT Office Visit Department of Urology in [place], [place] [address] [place] [address] Devin Jones MPAS, P.AElodia-C. [address] [place] [phone] 06/13/2024 3:15 PM CDT Education Department of Urology in [place], [place] [address] [place] [address] Abelardo Anna P.A.-CElodia [address] [place] [phone] 08/19/2024 9:00 AM TRANSFORMER STOCK CLERK Diagnostic Division of Pulmonary Medicine in [place], [place] [address] [place] [phone] Francia Luque MPAS P.A.-CElodia [address] [place] [phone] documented as of this encounter Visit Diagnoses Not on filedocumented in this encounter Additional Health Concerns Infection Onset Date Last Indicated Resolved Time COVID19 Pending 05/10/2020 05/10/2020 05/11/2020 8 :57 AM CDT COVID19 Pending 03/09/2021 03/09/2021 03/09/2021 1 2:25 PM CDT COVID19 Pending 06/08/2021 06/08/2021 06/08/2021 2 :15 PM CDT documented as of this encounter Care Teams Returned Item Clerk Relationship Specialty Start Date End Date Elsewhere, Pcp PCP - General Internal Medicine 01/14/19 documented as of this encounter
--- OUTSIDE RECORDS SUMMARY | 2024-06-03 14:37 | XMS_ITS | Encounter Summary ---
Author Organization [facility] Address [address] [place] [address] Care Team Providers Care Director Of Occupational Health Name Role Phone Elsewhere, Pcp Primary Care Provider Unavailabl e Encounter Details Date Type Department Care Team (Late st Contact Info) Description 11/02/2017 Historical Ophthalmology RST OPH Linda Engle M.D. [address] [place] [phone] Social History Tobacco Use Types Packs/Day Years [...] bladder cancer CDM Reports - EYEGEN Id: [id number] Status: Fnl documented in this encounter Plan of Treatment Upcoming Encounters Date Type Department Care Team (Latest Contact Info) Description 06/06/2024 8:00 AM CDT Appointment Outpatient Procedure Center in [address] [phone] Linda Engle M.D. [address] [place] [phone] Discharge Disposition: Home or Self Care 06/10/2024 10:00 AM CDT Clinical Communication Virtual Review in [place], [place] 200 [place] [address] 06/13/2024 7:00 AM CDT Appointment Department of Laboratory Medicine and Pathology, [facility], in [address] [phone] Devin Jones, MPAS, P.A.-C. [address] [place] [phone] 06/13/2024 7:30 AM CDT Lab Department of Urology in [place], [place] [address] [place] [address] Devin Jones MPAS, P.A.-CElodia [address] [place] [phone] 06/13/2024 9:00 AM CDT Appointment Department of Radiology, [facility], in [place], [place] [address] [place] [address] Devin Jones MPAS, P.A.-CElodia [address] [place] [phone] 06/13/2024 1:30 PM CDT Office Visit Department of Urology in [place], [place] [address] [place] [address] Devin Jones MPAS, P.A.-CElodia [address] [place] [phone] 06/13/2024 3:15 PM CDT Education Department of Urology in [place], [place] [address] [place] [phone] Abelardo Anna P.A.-C. [address] [place] [phone] 08/19/2024 9:00 AM EXECUTIVE CASINO HOST Diagnostic Division of Pulmonary Medicine in [place], [place] [address] [place] [phone] Francia Luque MPAS, P.A.-C. [address] [place] [phone] documented as of this encounter Visit Diagnoses Not on filedocumented in this encounter Additional Health Concerns Infection Onset Date Last Indicated Resolved Time COVID19 Pending 05/10/2020 05/10/2020 05/11/2020 8 :57 AM CDT COVID19 Pending 03/09/2021 03/09/2021 03/09/2021 1 2:25 PM CDT COVID19 Pending 06/08/2021 06/08/2021 06/08/2021 2 :15 PM CDT documented as of this encounter Care Teams Director Of Occupational Health Relationship Specialty Start Date End Date Elsewhere, Pcp PCP - General Internal Medicine 01/14/19 documented as of this encounter
--- OUTSIDE RECORDS SUMMARY | 2024-06-03 14:37 | XMS_ITS | Encounter Summary ---
Author Organization [facility] Address [address] [place] [address] Care Team Providers Care Social Media Community Manager Name Role Phone Elsewhere, Pcp Primary Care Provider Unavailabl e Reason for Visit * Reason Onset Date Comments Pre-visit Intake 05/20/2024 Encounter Details Date Type Department Care Team (Latest Contact Info) Description 05/20/2024 1:00 PM CDT Clinical Communication Virtual Review in [address] [phone] Pre-visit Intake Social History Tobacco Use Types Packs/Day Years Used Date Smoking Tobacco: Never Smokeless Tobacco: Never Tobacco Cessation:Counseling Given: Not Answered Alcohol Use Standard Drinks/Week Comments Yes 5 (1 standard drink = 0.6 oz pur e alcohol) [facility] Utilities Answer Date Recorded In the past 12 months has [facility] [facility], gas, oil, or water [employer] threatened to shut off services in your [...] How often do you attend chur or restoration services? 1 to 4 times per year 12/19/2022 Do you belong to any clubs o r organizations such as scientology groups, unions, fraternal or athletic groups, or [...] and heating? Not hard at all 12/19/2022 [facility] - Occupational [...] AM CDT Appointment Outpatient Procedure Center in [address] [phone] Linda Engle M.D. [address] [place] [phone] Discharge Disposition: Home or Self Care 06/10/2024 10:00 AM CDT Clinical Communication Virtual Review in [place], [place] [address] [place] [address] 06/13/2024 7:00 AM CDT Appointment Department of Laboratory Medicine and Pathology, [facility] in [place], [place] [address] [place] [address] Devin Jones MPAS, P.A.-CElodia [address] [place] [phone] 06/13/2024 7:30 AM CDT Lab Department of Urology in [place], [place] [address] [place] [address] Devin Jones MPAS, P.A.-C. [address] [place] [phone] 06/13/2024 9:00 AM CDT Appointment Department of Radiology, [facility], in [place], [place] [address] [place] [address] Devin Jones MPAS, P.A.-CElodia [address] [place] [phone] 06/13/2024 1:30 PM CDT Office Visit Department of Urology in [place], [place] [address] [place] [address] Devin Jones MPAS, P.A.-CElodia [address] [place] [phone] 06/13/2024 3:15 PM CDT Education Department of Urology in [place], [place] [address] [place] [address] Abelardo Anna P.A.-C. [address] [place] [phone] 08/19/2024 9:00 AM PASTRY COOK Diagnostic Division of Pulmonary Medicine in [place], [place] [address] [place] [address] Francia Luque MPAS, PElodiaASolange [address] [place] [address] documented as of this encounter Visit Diagnoses Not on filedocumented in this encounter Care Teams Social Media Community Manager Relationship Specialty Start Date End Date Elsewhere, Pcp PCP - General Internal Medicine 01/14/19 documented as of this encounter
--- OUTSIDE RECORDS SUMMARY | 2024-06-03 14:37 | XMS_ITS | Encounter Summary ---
Author Organization [facility] [place] Address [address] [place] [address] Care Team Providers Care Architectural Technologist Name Role Phone Elsewhere, Pcp Primary Care Provider Unavailabl e Encounter Details Date Type Department Care Team (Late st Contact Info) Description 01/06/2017 Historical Ophthalmology RST OPH Linda Engle M.D. [address] [place] [phone] Social History Tobacco Use Types Packs/Day Years [...] bladder cancer CDM Reports - EYEGEN Id: [id number] Status: Fnl documented in this encounter Plan of Treatment Upcoming Encounters Date Type Department Care Team (Latest Contact Info) Description 06/06/2024 8:00 AM CDT Appointment Outpatient Procedure Center in [address] [phone] Linda Engle M.D. [address] [place] [phone] Discharge Disposition: Home or Self Care 06/10/2024 10:00 AM CDT Clinical Communication Virtual Review in [place], [place] 200 [place] [phone] 06/13/2024 7:00 AM CDT Appointment Department of Laboratory Medicine and Pathology, [facility] in [address] [phone] Devin Jones MPAS, P.A.-C. [address] [place] [phone] 06/13/2024 7:30 AM CDT Lab Department of Urology in [address] [phone] Devin Jones MPAS, P.A.-CElodia [address] [place] [phone] 06/13/2024 9:00 AM CDT Appointment Department of Radiology, [facility], in [place], [place] [address] [place] [phone] Devin Jones MPAS, P.A.-C. [address] [place] [phone] 06/13/2024 1:30 PM CDT Office Visit Department of Urology in [place], [place] [address] [place] [phone] Devin Jones MPAS, P.A.-C. [address] [place] [phone] 06/13/2024 3:15 PM CDT Education Department of Urology in [place], [place] [address] [place] [address] Abelardo Anna P.A.-C. [address] [place] [phone] 08/19/2024 9:00 AM [employer] Diagnostic Division of Pulmonary Medicine in [place], [place] [address] [place] [phone] Francia Luque MPAS, P.A.-C. [address] [place] [phone] documented as of this encounter Visit Diagnoses Not on filedocumented in this encounter Additional Health Concerns Infection Onset Date Last Indicated Resolved Time COVID19 Pending 05/10/2020 05/10/2020 05/11/2020 8 :57 AM CDT COVID19 Pending 03/09/2021 03/09/2021 03/09/2021 1 2:25 PM CDT COVID19 Pending 06/08/2021 06/08/2021 06/08/2021 2 :15 PM CDT documented as of this encounter Care Teams Architectural Technologist Relationship Specialty Start Date End Date Elsewhere, Pcp PCP - General Internal Medicine 01/14/19 documented as of this encounter
--- OUTSIDE RECORDS SUMMARY | 2024-06-03 14:37 | XMS_ITS | Encounter Summary ---
Author Organization [facility] Address [address] [place] [address] Care Team Providers Care Lab Aid Name Role Phone Elsewhere, Pcp Primary Care Provider Unavailabl e Encounter Details Date Type Department Care Team (Late st Contact Info) Description 03/21/2024 CPAP Download Remote Patient Monitoring [facility] [address] [place] [phone] [facility], Provider, M.B., Ph.D. Social History Tobacco [...] often do you attend chur ch or rastafari services? 1 to 4 times per year [...] and heating? Not hard at all 12/19/2022 [facility] - Occupational [...] place to sleep or slept in a [place] [facility] [place] (including now)? No 12/19/2022 Nutrition Answer Date [...] AM CDT Appointment Outpatient Procedure Center in [address] [place] [address] [phone] Linda Engle M.D. [address] [place] [phone] Discharge Disposition: Home or Self Care 06/10/2024 10:00 AM CDT Clinical Communication Virtual Review in [place], [place] 200 [place] [phone] 06/13/2024 7:00 AM CDT Appointment Department of Laboratory Medicine and Pathology, [facility] in [place], [place] [address] [place] [phone] Devin Jones MPAS, P.A.-C. [address] [place] [phone] 06/13/2024 7:30 AM CDT Lab Department of Urology in [place], [place] [address] [place] [phone] Devin Jones MPAS, P.A.-C. [address] [place] [phone] 06/13/2024 9:00 AM CDT Appointment Department of Radiology, [facility], in [place], [place] [address] [place] [address] Devin Jones MPAS, P.A.-C. [address] [place] [phone] 06/13/2024 1:30 PM CDT Office Visit Department of Urology in [place], [place] [address] [place] [address] Devin Jones MPAS, P.A.-CElodia [address] [place] [phone] 06/13/2024 3:15 PM CDT Education Department of Urology in [place], [place] [address] [place] [phone] Abelardo Anna P.A.-C. [address] [place] [phone] 08/19/2024 9:00 AM PURCHASING AND FISCAL CLERK Diagnostic Division of Pulmonary Medicine in [place], [place] [address] [place] [phone] Francia Luque, MPAS, P.A.-C. [address] [place] [address] documented as of this encounter Visit Diagnoses Not on filedocumented in this encounter Care Teams Lab Aid Relationship Specialty Start Date End Date Elsewhere, Pcp PCP - General Internal Medicine 01/14/19 documented as of this encounter
--- NOTE | 2024-06-03 14:45 | CRLHL7_ITS ---
For Patients: As a result of the Century Cures Act, medical imaging exams and procedure reports are released immediately into your electronic medical record. You may view this report before your referring provider. If you have questions, please contact your health care provider. Indication: Edema, unspecified Technique: Real-time longitudinal and transverse sonographic grayscale imaging with and without compression, as well as color and duplex Doppler imaging before and after augmentation, was obtained of the deep system of the right lower extremity, including the common femoral, femoral, popliteal, posterior tibial, and peroneal veins. Comparison: None. Findings: Common femoral vein: No evidence of thrombus. Femoral vein: Duplicated mid and distal femoral veins. Thrombus is seen beginning in 1 of 2 mid femoral veins. Popliteal vein: Thrombus is seen. Calf veins: Thrombus is seen. 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 Message left for Dr. Velez at 3:44 p.m. on 06/03/2024, awaiting callback. Dictated by Charles Haines MD @ 06/03/2024 3:46:42 PM (Electronically Signed)
== END 2024-06-03 14:33 | disposition home or self-care (01) ==
PROVIDERS: PCP Internal Medicine; Visit Provider Registered Nurse
DX: R60.9 Edema, unspecified (principal); I82.431 Acute embolism and thrombosis of right popliteal vein
CPT/HCPCS: 93971

== ENCOUNTER 2024-06-18 11:28 | Outpatient (CLI) | payer MEDICARE, BC, SELFPAY ==
--- OUTSIDE RECORDS SUMMARY | 2024-06-18 11:34 | XMS_ITS | Clinical Summary ---
Author Organization [facility] Address [address] [place] [address] Care Team Providers Care Director Of Recruitment Name Role Phone Elsewhere, Pcp Primary Care Provider Unavailabl e Source Comments Patient records contain information from all sites at [facility]. For routine questions regarding patient records, call [phone] during business hours, M-F 8:00 AM - 5:00 PM Central Time. Record requests for emergency care only can be directed to [phone] at any time.[facility] Allergies Active Allergy Reactions Criticality Noted Date Comments Levofloxacin Tendonitis 01/14/2019 Medications simvastatin (for_ZOCOR) 40 mg tablet Take 1 tablet by mouth every evening. 6 Active omeprazole (PriLOSEC) [address] capsule Take 20 mg by mouth every morning before breakfast. Active lisinopriL (PRINIVIL,ZEST RIL) 2.5 mg tablet Take 2.5 mg by mouth daily. 0 Active DME Ostomy suppliesIndica tions:Conduit Ileal (HCC) DME Order 1 Unspecified 11 2 Active DME Ostomy suppliesIndica tions:Conduit Ileal (HCC) DME Order 1 Unspecified 11 2 Active ipratropium (ATROVENT) 21 mcg (0.03 %) nasal spray Administer 2 sprays into each nostril 2 (two) times a day. 30 mL 12 3 Active Additional Information Patient taking differently:2 spray each nostrilAs needed, Reported on 06/10/2024 DME Ostomy suppliesIndica tions:Conduit Ileal (HCC) DME Order 1 Unspecified 11 3 Active DME Ostomy suppliesIndica tions:Conduit Ileal (HCC) DME Order 1 Unspecified 11 3 Active DME CPAPIndication s:Obstructive Sleep Apnea Adult DME Order 1 each 4 Active dorzolamide-ti moloL (COSOPT) 22.3-6.8 mg/mL ophthalmic solution Administer 1 drop into the left eye once for 1 dose. Take 1 drop left eye the morning of eye injections to maintain a healthy intra-ocular pressure. 10 mL 2 4 Active albuterol 90 mcg/actuation inhaler 2 puffs every 6 (six) hours as needed. 4 Active triamcinolone (Kenalog) 0.147 mg/g topical spray Apply 1 spray topically as needed. 4 Active predniSONE (Deltasone) 5 mg tablet Take 4 tablets (20 mg total) by mouth daily for 7 days, THEN 3 tablets (15 mg total) daily for 7 days, THEN 2 tablets (10 mg total) daily for 7 days, THEN 1 tablet (5 mg total) daily for 7 days. 70 tablet 4 024 Active Xarelto DVT-PE Treat 30d Start tablets,dose pack starter pack 1 tablet 2 (two) times a day. 4 Active Hospital, Clinic, or Other Facility Administered [...] Encounters Date Type Department Care Team Description 06/13/2024 1:30 PM CDT Office Visit Department of Urology in [place], [place] [address] [place] [phone] Devin Jones MPAS, P.A.-C. Brooke North APRN, C.N.P., M.S.N. Malignant Neoplasm Of Bladder (HCC) (Primary Dx); Urostomy Status Post (HCC); Conduit Ileal (HCC); Primary Malignant Neoplasm Of Prostate (HCC); Embolus Pulmonary (HCC) 06/13/2024 8:07 AM CDT - 06/13/2024 11:59 PM CDT Hospital Encounter Department of Radiology, [facility], in [place], [place] [address] [place] [address] Devin Jones MPAS, P.A.-C. Malignant Neoplasm Of Bladder (HCC) Discharge Disposition: Home or Self Care 06/13/2024 7:30 AM CDT Lab Department of Urology in [place], [place] [address] [place] [phone] Devin Jones MPAS, P.A.-C. Leesa Ko V., R.N. Malignant Neoplasm Of Bladder (HCC) 06/13/2024 6:45 AM CDT - 06/13/2024 8:06 AM CDT Hospital Encounter Department of Laboratory Medicine and Pathology, [facility], in [place], [place] [address] [place] [phone] Devin Jones MPAS, P.A.-C. Malignant Neoplasm Of Bladder (HCC); Primary Malignant Neoplasm Of Prostate (HCC) Discharge Disposition: Home or Self Care 06/10/2024 10:00 AM CDT Clinical Communication Virtual Review in [place], [place] [address] [place] [address] Pre-visit Intake 06/06/2024 8:03 AM CDT - 06/06/2024 11:59 PM CDT Hospital Encounter Outpatient Procedure Center in [address] [phone] Cristobal Handley M.D. Discharge Disposition: Home or Self Care 06/06/2024 7:42 AM CDT - 06/06/2024 8:02 AM CDT Hospital Encounter Outpatient Procedure Center in [address] [address] Linda Engle M.D. Central Retinal Vein Occlusion With Macular Edema Left (HCC) Discharge Disposition: Home or Self Care 05/22/2024 CPAP Download Remote Patient Monitoring [facility] [address] [place] [address] [facility], MD Margarito 05/21/2024 1:30 PM CDT Office Visit Division of Pulmonary Medicine in [place], [place] [address] [place] [phone] Francia Luque MPAS, P.A.-C. Lung Interstitial Disease (HCC) (Primary Dx); COVID-19 Infection 05/21/2024 10:30 AM CDT - 05/21/2024 11:59 PM CDT Hospital Encounter Department of Radiology, [facility], in [place], [place] [address] [place] [phone] Francia Luque MPAS, P.A.-C. Lung Interstitial Disease (HCC) Discharge Disposition: Home or Self Care 05/20/2024 1:00 PM CDT Clinical Communication Virtual Review in [address] [phone] Pre-visit Intake 04/21/2024 CPAP Download Remote Patient Monitoring [facility] [address] [place] [address] [facility] 03/21/2024 8:56 AM CDT - 03/21/2024 11:59 PM CDT Hospital Encounter Outpatient Procedure Center in [address] [phone] Linda Engle M.D. Central Retinal Vein Occlusion With Macular Edema Left (HCC) Discharge Disposition: Home or Self Care 03/21/2024 CPAP Download Remote Patient Monitoring [facility] [address] [place] [address] [facility], ProviderMD from Last 3 Months Immunizations Name Administration [...] drink = 0.6 oz pur e alcohol) [facility] Utilities Answer Date Recorded In the past 12 months has e electric, gas, oil, or water [employer] threatened to shut off services in your [...] How often do you attend chur or gnosticist services? 1 to 4 times per year 12/19/2022 Do you belong to any clubs o r organizations such as pentecostalism groups, unions, fraternal or athletic groups, or [...] your living situation today? I have a [facility] place to live 05/20/2024 Education Answer Date Recorded What is the highest level of school you have completed or the highest degree you have received? Bachelor's degree (e.g., BA, AB, BS) 02/22/2019 Sex and Gender Information Value Date Recorded Sex Assigned at Male 02/05/2018 5:12 PM CDT Legal Sex Male 4:28 AM TEXTILE CHEMIST Gender Identity Male 02/05/2018 5:12 PM CDT [...] Upcoming Encounters Date Type Department Care Team (Late st Contact Info) Description 08/19/2024 9:00 AM TEXTILE CHEMIST Diagnostic Division of Pulmonary Medicine in [place], [place] [address] [place] [address] Francia Luque, [facility], [facility].-C. [address] [place] [address] Health Maintenance Due Date Last Done Comments [...] PHQ-2) 08/28/2023 COVID-19 Vaccine ( season) 2024 08/08/2023, 07/11/2022, 10/12/2021, Additional history exists Influenza Vaccine (#1) 2024 , 07/11/2022, 08/18/2021, Additional history exists Dilated Eye Exam 11/08/2024 11/09/2023, , 07/27/2022, Additional history exists Office Visit for Blood Pressure Check / Re-check 05/21/2025 05/21/2024 Creatinine Level (Kidney Function Test) 06/13/2025 06/13/2024, 06/08/2023, 12/29/2022, Additional history exists Potassium Level 06/13/2025 06/13/2024, 05/28, 12/29/2022, Additional history exists Sodium Level 06/13/2025 06/13/2024, 05/28, 12/29/2022, Additional history exists DTaP,Tdap,and Td Vaccines (3 - Td or Tdap) 08/10/2032 08/10/2022, 06/08/2012, 04/04/2008 Pneumococcal vaccine (65+ years) Completed 08/18/2021, 05/31/2018 Zoster Vaccines Completed 08/16/2023, 08/29, 07/15/2020 Fall Risk Screen (Annual) Completed 06/06/2024 HPV Vaccines Aged Out No longer eligi ble based on patient's age to complete this topic Medical Devices Implanted Type Area Data Science And I[employer] Manager Device Identifier Shelf Expiration Date Model / Serial / Lot Clp Hrzn Ti 24 Clp Md Tiago - [id number] Implanted:Qty : 1 on 10/17/2019 by Alejandro Head[place] [facility] [place]. pins/screws/ rods [employer] [id number] 03/18/2024 [id number] / / [id number] Clp Hrzn Ti 6 Clp Lg Orng - [id number] Implanted:Qty : 1 on 10/17/2019 by Alejandro Headley M[place]D. [place] [facility] [place] e.[place]. pins/screws/ rods [employer] [id number] 02/27/2024 [id number] / / [id number] Clp Hrzn Ti 6 Clp Lg Orng - [id number] Implanted:Qty : 1 on 10/17/2019 by Alejandro Head[place] M[place]D. [place] [facility] [place] e.[place]. pins/screws/ rods [employer] [id number] 02/27/2024 [id number] / / [id number] Clp Hrzn Ti 24 Clp Tiago - [id number] Implanted:Qty : 1 on 10/17/2019 by Alejandro Headley M[place]D. [place] [facility] [place] e.[place]. pins/screws/ rods [employer] [id number] 03/04/2023 [id number] / / [id number] Clp Hrzn Ti 24 Clp Tiago - [id number] Implanted:Qty : 1 on 10/17/2019 by Alejandro Headley M[place]D. [place] [facility] [place] e.[place]. pins/screws/ rods [employer] [id number] 12/06/2020 [id number] / / [id number] Clp Hrzn Ti 6 Clp Lg Orng - [id number] Implanted:Qty : 1 on 10/17/2019 by Alejandro Head[place] M[place]D. [place] [facility] [place] e.[place]. pins/screws/ rods [employer] [id number] / / Clp Hrzn Ti 6 Clp Lg Orng - [id number] Implanted:Qty : 1 on 10/17/2019 by Alejandro Head[place] M[place]D. [place] [facility] [place] e.[place]. pins/screws/ rods [employer] [id number] / / Clp Hrzn Ti 6 Clp Lg Orng - [id number] Implanted:Qty : 1 on 10/17/2019 by Alejandro Head[place] M[place]D. [place] [facility] [place] e.[place]. pins/screws/ rods [employer] [id number] / / Clp Hrzn Ti 6 Clp Lg Orng - [id number] Implanted:Qty : 1 on 10/17/2019 by Alejandro Head[place] M[place]D. [place] [facility] [place] e.[place]. pins/screws/ rods [employer] [id number] / / Clp Hrzn Ti 6 Clp Lg Orng - [id number] Implanted:Qty : 1 on 10/17/2019 by Alejandro Headley M.D. [place] [facility] [place] e.g. pins/screws/ rods [employer] [id number] / / Clp Hrzn Ti 6 Clp Lg Orng - [id number] Implanted:Qty : 1 on 10/17/2019 by Alejandro Head[place] M[place]D. [place] [facility] [place] e.[place]. pins/screws/ rods [employer] [id number] / / Procedures Procedure Name Priority Date/Time Associated Diagnosis Comments CT UROGRAM WITHOUT AND WITH IV CONTRAST RAD - Routine (most inpatients and all outpatients) 06/13/2024 9:23 AM CDT Malignant Neoplasm Of Bladder (HCC) CYTOLOGY NON-CIVIL DESIGNER Routine 06/13/2024 7:38 AM CDT Malignant Neoplasm Of Bladder (HCC) PROSTATE-SPECIFIC AG (PSA) DIAGNOSTIC, S Routine 06/13/2024 7:01 AM CDT Primary Malignant Neoplasm Of Prostate (HCC) VITAMIN B12 ASSAY, S Routine 06/13/2024 7:01 AM CDT Malignant Neoplasm Of Bladder (HCC) BASIC METABOLIC PANEL, S/P Routine 06/13/2024 7:01 AM CDT Malignant Neoplasm Of Bladder (HCC) INTRAVITREAL INJECTION, PHARMACOLOGIC AGENT - OS - LEFT EYE Routine 06/06/2024 8:03 AM CDT Central Retinal Vein Occlusion With Macular Edema Left (HCC) PULMONARY FUNCTION TESTS Routine 05/21/2024 12:12 PM [...] IMAGE EXAM Routine 11/09/2023 12:00 AM CDT HEMOGLOBIN A1C, B Routine 08/02/2019 10:39 AM TEXTILE CHEMIST Malignant Neoplasm Of Bladder (HCC) Symptom Urinary LIPID PANEL, S Routine 07/24/2015 6:41 AM TEXTILE CHEMIST from Last 3 Months or Most Recently Relevant to Health Maintenance Results * CT Urogram without and with IV Contrast (06/13/2024 9:23 AM CDT) Anatomical Region Laterality Modality Abdomen, Pelvis, Abdominal R ST LOS, Abdominal ARZ LOS, Abdominal FLA LOS N/A Computed Tomograp hy, Computed Tomography 06/13/2024 9:14 AM CDT Impressions 06/13/2024 10:26 AM CDT 1. No findings concerning for recurrence or metastasis in the abdomen or pelvis. 2. Small focal hyperenhancement in the right mid kidney may represent focal pyelonephritis. 3. Suspected bilateral lower lobe pulmonary emboli. Findings were discussed with Devin Diallo at 10:15 AM Narrative 06/13/2024 10:26 AM CDT EXAM: ??CT UROGRAM WITHOUT AND WITH IV CONTRAST COMPARISON: ??CT abdomen and pelvis 06/08/2023 FINDINGS: ?? findings: Post radical cystoprostatectomy and ileal conduit diversion with right lower quadrant stoma (10/17/2019). No suspicious mass or nodularity in the surgical bed. Fat-containing parastomal hernia. There is a small wedge-shaped hypoenhancement in the right posterior mid kidney (301/89) with delayed enhancement (501/74). Symmetric renal enhancement and nephrograms. No renal or ureteric calculi. No solid enhancing mass. No hydronephrosis or hydroureter. Stable mild medullary tubular ectasia without calcinosis. The collecting systems and ureters are well opacified along their course, no suspicious filling defect, urothelial thickening or abnormal enhancement. Opacified ileal conduit without any filling defects. A fat - containing parastomal hernia is similar. Non- findings: No suspicious focal hepatic lesion. The portal and hepatic veins are patent. A few hyperdensities in the gallbladder neck may be tiny calculi, no findings of acute cholecystitis. The biliary tree, adrenal glands, pancreas and spleen appear within normal limits. Enteric enteric anastomosis in the midline of the abdomen, with mild fecalization of content suggesting stasis. Otherwise, the stomach and small bowel are normal in caliber, no findings of obstruction. Normal appendix. Sigmoid diverticulosis, no diverticulitis. No enlarged pelvic lymph nodes. No ascites. Mild atherosclerotic calcifications of the abdominal aorta and iliac arteries without aneurysm. No suspicious osseous lesion. Stable lucent and sclerotic lesion of the left iliac bone. Degenerative changes of the spine, hips, SI and pubic symphysis joints. Possible filling defects within the right lower lobar and segmental pulmonary arteries (301/1) and also in the left lower lobar segmental arteries (301/3). Fibrotic changes of the included lung bases, consistent with known interstitial lung disease better evaluated on a dedicated CT chest from 05/21/2024. Partly visualized LCx calcifications. Procedure Note Angela Cavazos M.B.B.S. - 06/13/2024 EXAM: CT UROGRAM WITHOUT AND WITH IV CONTRAST COMPARISON: CT abdomen and pelvis 06/08/2023 FINDINGS: findings: Post radical cystoprostatectomy and ileal conduit diversion with rightlower quadrant stoma (10/17/2019). No suspicious mass or nodularity in thesurgical bed. Fat-containing parastomal hernia. There is a small wedge-shaped hypoenhancement in the right posterior midkidney (301/89) with delayed enhancement (501/74). Symmetric renal enhancement and nephrograms. No renal or ureteric calculi.No solid enhancing mass. No hydronephrosis or hydroureter. Stable mildmedullary tubular ectasia without calcinosis. The collecting systems andureters are well opacified along their course, no suspicious filling defect, urothelial thickening orabnormal enhancement. Opacified ileal conduit without any filling defects.A fat - containing parastomal hernia is similar. Non- findings: No suspicious focal hepatic lesion. The portal and hepatic veins arepatent. A few hyperdensities in the gallbladder neck may be tiny calculi, nofindings of acute cholecystitis. The biliary tree, adrenal glands,pancreas and spleen appear within normal limits. Enteric enteric anastomosis in the midline of the abdomen, with mildfecalization of content suggesting stasis. Otherwise, the stomach andsmall bowel are normal in caliber, no findings of obstruction. Normalappendix. Sigmoid diverticulosis, no diverticulitis. No enlarged pelvic lymph nodes. No ascites. Mild atherosclerotic calcifications of the abdominal aorta and iliacarteries without aneurysm. No suspicious osseous lesion. Stable lucent and sclerotic lesion of theleft iliac bone. Degenerative changes of the spine, hips, SI and pubicsymphysis joints. Possible filling defects within the right lower lobar and segmentalpulmonary arteries (301/1) and also in the left lower lobar segmentalarteries (301/3). Fibrotic changes of the included lung bases, consistentwith known interstitial lung disease better evaluated on a dedicated CT chest from 05/21/2024. Partly visualizedLCx calcifications. IMPRESSION: 1. No findings concerning for recurrence or metastasis in the abdomen orpelvis. 2. Small focal hyperenhancement in the right mid kidney may representfocal pyelonephritis. 3. Suspected bilateral lower lobe pulmonary emboli. Findings were discussed with Devin Diallo at 10:15 AM James Maria.-C. IMG CT PROCEDURES Final Result * Cytology Non-CIVIL DESIGNER (06/13/2024 7:38 AM CDT) 06/14/2024 2:52 PM CDT DTL Participated in the Interpretation Tomasa Reynoso M.D.-Pathology Fellow 06/14/2024 2:52 PM CDT DTL Report electronically signed by Jenny London M.D. I verify that I have examined all relevant slides/material s for the specimen(s) and rendered or confirmed the diagnosis. 06/14/2024 2:52 PM CDT DTL Gross Description A: Received 15 cc of cloudy yellow fluid. B: Received 50 cc of clear fluid. 06/14/2024 2:52 PM CDT DTL Source A. Urine, Stoma, catheterized B. Urine, Urethra (Male), washing 06/14/2024 2:52 PM CDT DTL Interpretation A. Urine, Stoma, catheterized (ThinPrep): Negative for High-Grade Urothelial Carcinoma. ??Cellular changes consistent with urinary diversion. B. Urine, Urethra (Male), washing (ThinPrep): Negative for High-Grade Urothelial Carcinoma. 06/14/2024 2:52 PM CDT DTL Urine 06/13/2024 7:38 AM CDT 06/13/2024 8:33 AM CDT Brandee MariaA.-C. LAB SURG PATH ORD ERABLES Final Result [facility] [address] [place] [address], [facility] DTL [address] [place] [address] * PSA (Prostate-Specific Antigen), Diagnostic (06/13/2024 7:01 AM CDT) Pathologist [facility] Prostate-Specific Ag <0.10 <=4.5 ng/mL 06/13/2024 8:53 AM CDT DTL Comment: ----ADDITIONAL INFORMATION---- The testing method is an electrochemiluminescence assay manufactured by [employer] and performed on the Modular or Agustina system. Values obtained with different assay methods or kits may be different and cannot be used interchangeably. Test results cannot be interpreted as absolute evidence for the presence or absence of malignant disease. Blood (Blood, Venous) 06/13/2024 7:01 AM CDT 06/13/2024 7:49 AM CDT Devin LAMAR, P.A.-C. LAB BLOOD ADD-ON Final Result Performing Organization Address [facility] Co de Phone Number [facility] [address] [place] [address], [facility] DTL [facility] [address] [place] [address] * Vitamin B12 Assay (06/13/2024 7:01 AM CDT) [facility] Vitamin B12 Assay, S 219 180 - 914 ng/L 06/13/2024 9:45 AM CDT DTL Comment: ----ADDITIONAL INFORMATION---- In patients being evaluated for vitamin B12 deficiency who have intrinsic factor blocking antibodies (IFBA), false elevations of B12 may occur due to IFBA interference thus potentially obscuring a physiological deficiency of B12. If observed B12 concentrations are discordant with clinical presentation, measurement of methylmalonic acid (MMA) should be considered. Blood (Blood, Venous) 06/13/2024 7:01 AM CDT 06/13/2024 7:49 AM CDT Devin LAMAR, P.A.-C. LAB BLOOD ADD-ON Final Result Performing Organization Address [facility] Co de Phone Number [facility] [address] [place] [address], [facility] DTL [facility] [address] [place] [address] * (ABNORMAL) Basic Metabolic Panel (06/13/2024 7:01 AM CDT) Potassium, S 4.8 3.6 - 5.2 mmol/L 06/13/2024 8:53 AM CDT DTL Sodium, S 139 135 - 145 mmol/L 06/13/2024 8:53 AM CDT DTL Chloride, S 102 98 - 107 mmol/L 06/13/2024 8:53 AM CDT DTL Bicarbonate, S 25 22 - 29 mmol/L 06/13/2024 8:53 AM CDT DTL Anion Gap 12 7 - 15 06/13/2024 8:53 AM CDT DTL BUN (Blood Urea Nitrogen), S 21 8 - 24 mg/dL 06/13/2024 8:53 AM CDT DTL Creatinine 0.99 0.74 - 1.35 mg/dL 06/13/2024 8:53 AM CDT DTL Estimated GFR (eGFR) 82 >=60 mL/min/BSA 06/13/2024 8:53 AM CDT DTL Comment: Estimated GFR calculated using the 2020 CKD_EPI creatinine equation. Calcium, Total, S 9.5 8.8 - 10.2 mg/dL 06/13/2024 8:53 AM CDT DTL Glucose, S 150(H) 70 - 140 mg/dL 06/13/2024 8:53 AM CDT DTL Blood (Blood, Venous) 06/13/2024 7:01 AM CDT 06/13/2024 7:49 AM CDT Devin Jones MPAS, P.A.-C. LAB BLOOD ADD-ON Final Result [facility] [address] [place] [address], [facility] DTL [facility] [address] [place] [address] * Intravitreal Injection, Pharmacologic Agent - OS - Left Eye (06/06/2024 8:03 AM CDT) Cristobal García M.D. - 06/06/2024 11:42 AM CDT Pre-Procedure Verification Pre-procedure verification conducted [...] Site: Left Eye ??[facility]: 18860-814-17 Balanced salt solution irrigation to injected eye after the injection was Done. Hand motion was present. Count fingers was correct. 14.0. Reviewed instructions and patient verbalizes understanding. Ancillary Staff Ancillary Staff: Carlos Mckee RN, Chloé Martins RN. Notes Patient oriented to outpatient procedure center. ??Reviewed process for scheduled procedure, and pain management including pain scale. Patient declines written post-procedure material or previously received brochure. ?? Information reviewed and understanding assessed by teach-back. ??Follow-up appointments discussed and return schedule given if requested. Eylea Left eye: Lot: [id number] Exp. 01/2025 [id number] Modified Betadine Visual acuity stable. ??Eylea injection left eye today without complication. ??Next appointment in [place] with Dr. Engle. ?? Dr. Handley us Cristobal Handley M.D. [facility] PROCEDURES F inal Result * Pulmonary Function Tests (05/21/2024 12:12 PM CDT) [facility] FVC 2.83 L 05/21/2024 4:58 PM CDT [facility] FEV1 2.56 L 05/21/2024 4:58 PM CDT [facility] FEV1/FVC 90.55 % 05/21/2024 4:58 PM CDT [facility] KJY05-81% 4.39 L/s 05/21/2024 4:58 PM CDT [facility] PEF PRE 13.46 L/s 05/21/2024 4:58 PM CDT [facility] PIF PRE 9.29 L/s 05/21/2024 4:58 PM CDT [facility] FEF 50 % FIF 50 PRE 62.74 % 05/21/2024 4:58 PM CDT [facility] FET PRE 4.82 sec 05/21/2024 4:58 PM CDT [facility] DLCO 15.70 ml/(min*mm Hg) 05/21/2024 4:58 PM CDT [facility] VA 3.81 L 05/21/2024 4:58 PM CDT [facility] PulseRest 114.00 1/min 05/21/2024 4:58 PM CDT [facility] T4GpeIpvh 95.00 % 05/21/2024 4:58 PM CDT [facility] PulseExer 131.00 1/min 05/21/2024 4:58 PM CDT [facility] EXER TIME 1.50 min 05/21/2024 4:58 PM CDT [facility] STEP HEIGHT PRE 5.00 Inch 05/21/2024 4:58 PM CDT [facility] TLC 4.96 L 05/21/2024 4:58 PM CDT [facility] FRCPLETH PROVBASE 2.55 L 05/21/2024 4:58 PM CDT [facility] RV 2.08 L 05/21/2024 4:58 PM CDT [facility] RV % TLC PRE 42.04 % 05/21/2024 4:58 PM CDT [facility] 05/21/2024 12:1 2 PM CDT Impressions [facility] - 05/21/2024 4:58 PM CDT Abnormal study. [...] normal. Compared to 11/17/2023, TLC has increased. us Francia LAMAR, P.A.-C. PFT ORDERABLES Fi nal Result [facility] [address] * CT Chest without IV Contrast [...] air trapping, fibrotic interstitial pneumonitis is apossibility. us Francia LAMAR, P.A.-C. IMG CT PROCEDURES Final Result * Intravitreal Injection, Pharmacologic Agent - OS [...] Site: Left Eye ??[facility]: 71322-514-54 Balanced salt solution irrigation to injected eye [...] discussed and return schedule given if requested. Kaz Left eye: Lot: [id number] Exp. 06/2024 SN [id number] Modified Betadine us Linda Engle M.D. OPH CLINIC PROCEDURES Zahra l Result * Eyes Spectralis OCT-Ophthalmology Image Exam (11/09/2023 12:00 AM CDT) Narrative IIMS - 11/09/2023 8:17 AM CDT This order has been created and auto-finalized to support the import of images acquired without order. The clinical documentation to support these images can be found on the encounter that produced images. us Provider Not In System IMG NON RAD IMAGING PROCE DURES Final Result Performing Organization Address City/[facility]/ZIP Co de Phone Number [facility] NA * (ABNORMAL) Hemoglobin A1c (08/02/2019 10:39 AM TEXTILE CHEMIST) Hemoglobin A1c, B 6.9(H) 4.0 - 5.6 % 08/02/2019 11:31 AM TEXTILE CHEMIST DTL Comment: Hemoglobin A1c values greater than or equal to 6.5 percent are diagnostic for diabetes mellitus. ??Diagnosis should be confirmed by repeat testing. ??In diabetic patients, HbA1c goals should be discussed with healthcare provider. Blood (Blood, Venous) 08/02/2019 10:39 AM TEXTILE CHEMIST 08/02/2019 11:02 AM TEXTILE CHEMIST us Abelardo Anna P.A.-C. LAB BLOOD ADD-ON Zahra l Result [facility] [address] [place] [address], [place] DTL [facility] [address] [place] [address] * (ABNORMAL) Lipid Panel (07/24/2015 6:41 AM TEXTILE CHEMIST) Cholesterol, Total 177 SeeComment MG/DL [facility] Comment: ? REFERENCE VALUE ? Desirable: < 200 ? Borderline high: 200 - 239 ? High: > or = 240 ? Triglycerides 182(H) SeeComment MG/DL [facility] Comment: ? REFERENCE VALUE ? Normal: <150 ? Borderline high: 150-199 ? High: 200-499 ? Very high: > or =500 ? Cholesterol, Non-HDL, Calculated 116 SeeComment MG/DL [facility] Comment: ? REFERENCE VALUE ? Desirable: <130 ? Above Desirable: 130-159 ? Borderline high: 160-189 ? High: 190-219 ? Very high: > or =220 ? Cholesterol, HDL, S 61 >=40 MG/DL [facility] Calculated LDL 80 SeeComment MG/DL [facility] Comment: ? REFERENCE VALUE ? Desirable: <100 ? Above Desirable: 100-129 ? Borderline high: 130-159 ? High: 160-189 ? Very high: > or =190 ? 07/24/2015 6:41 AM TEXTILE CHEMIST 07/24/2015 6:41 AM TEXTILE CHEMIST Alejandro Ha M.D. LAB BLOOD ADD-ON Final Re sult Performing Organization Address City/State/[facility] Co de Phone Number [facility] [address] [place] [address], [facility] from Last 3 Months or Most Recently Relevant to Health Maintenance Insurance MEDICARE [facility] Advance Directives For more information, please contact: [phone] * Full Code (Latest Code Status on [...] Answer Comments Full Code: Discussed Care Teams Director Of Recruitment Relationship Specialty Start Date End Date Elsewhere, Pcp PCP - General Internal Medicine 01/14/19
--- OUTSIDE RECORDS SUMMARY | 2024-06-18 11:35 | XMS_ITS | Encounter Summary ---
Author Organization [facility] Address [address] [place] [id number] Care Team Providers Care [employer] Auto [employer] Teacher Name Role Phone Elsewhere, Pcp Primary Care Provider Unavailabl e Reason for Visit * Reason Comments stoma urine and urethral washing Encounter Details Date Type Department Care Team (Late st Contact Info) Description 06/13/2024 7:30 AM CDT Lab Department of Urology in [place], [place] [address] [place] [phone] Devin Jones, BRIANDA, P.A.-C. [address] [place] [phone] Leesa Ko V., R.N. Malignant Neoplasm Of Bladder (HCC) Social History Tobacco Use Types Packs/Day Years Used Date Smoking Tobacco: Never Smokeless Tobacco: Never Alcohol Use Standard Drinks/Week Comments Yes 5 (1 standard drink = 0.6 oz pur e alcohol) [facility] Utilities Answer Date Recorded In the [...] week 12/19/2022 How often do you attend [facility] or restorationism services? 1 to 4 times per year 12/19/2022 Do you belong to any clubs o r organizations such as episcopal groups, unions, fraternal or athletic groups, or [...] and heating? Not hard at all 12/19/2022 [facility] [place] of Occupat ional Health - Occupational Stress [...] your living situation today? I have a [facility] place to live 05/20/2024 Education Answer Date Recorded What is the highest level of school you have completed or the highest degree you have received? Bachelor's degree (e.g., BA, AB, BS) 02/22/2019 Sex and Gender Information Value Date Recorded Sex Assigned at Male 02/05/2018 5:12 PM CDT Legal Sex Male 4:28 AM MANAGER CLUB Gender Identity Male 02/05/2018 5:12 PM CDT Sexual Orientation Straight 02/05/2018 5: 12 PM CDT documented as of this encounter Progress Notes * Leesa Ko V. RElodiaN. - 06/13/2024 7:30 AM CDT CHIEF COMPLAINT Patient is here for specimen collection Specimen Collection Specimen type: Stoma Urine and Urethral washing Specimen route: Stoma Patient tolerated procedure: Yes Specimen sent for: cytology Leesa Ko, RCheryl documented in this encounter Plan of Treatment Upcoming Encounters Date Type Department Care Team (Late st Contact Info) Description 08/19/2024 9:00 AM MANAGER CLUB Diagnostic Division of Pulmonary Medicine in [place], [place] [address] [place] [phone] Francia Luque MPAS, P.AElodia-C. [address] [place] [phone] documented as of this encounter Procedures Procedure Name Priority Date/Time Associated Diagnosis Comments CYTOLOGY NON-LOGGING ENGINEER Routine 06/13/2024 7:38 AM CDT Malignant Neoplasm Of Bladder (HCC) documented in this encounter Results * Cytology Non-LOGGING ENGINEER (06/13/2024 7:38 AM CDT) 06/14/2024 2:52 PM [...] 7:38 AM CDT 06/13/2024 8:33 AM CDT us Devin LAMAR, P.A.-C. LAB SURG PATH ORD ERABLES Final Result Performing Organization Address City/State/[facility] Co de Phone Number [facility] [address] [place] [address], [facility] DTL [address] [place] [address] documented in this encounter Visit Diagnoses Diagnosis Malignant Neoplasm Of Bladder (HCC) documented in this encounter Care Teams [employer] Teacher Relationship Specialty Start Date End Date Elsewhere, Pcp PCP - General Internal Medicine 01/14/19 documented as of this encounter
--- OUTSIDE RECORDS SUMMARY | 2024-06-18 11:35 | XMS_ITS | Encounter Summary ---
Author Organization [facility] Address [address] [place] [address] Care Team Providers Care Farmworker [employer] Name Role Phone Elsewhere, Pcp Primary Care Provider Unavailabl e Encounter Details Date Type Department Care Team (Latest Contact Info) Description 06/06/2024 8:03 AM CDT - 06/06/2024 11:59 PM CDT Hospital Encounter Outpatient Procedure Center in [address] [phone] Cristobal Handley M.D. [address] [place] [phone] Discharge Disposition: Home or Self Care Social History Tobacco Use Types Packs/Day Years Used Date Smoking Tobacco: Never Smokeless Tobacco: Never Alcohol Use Standard Drinks/Week Comments Yes 5 (1 standard drink = 0.6 oz pur e alcohol) [facility] Utilities Answer Date Recorded In the past 12 months has [employer] electric, gas, oil, or water company threatened [...] How often do you attend chur or muslim services? 1 to 4 times per year 12/19/2022 Do you belong to any clubs o r organizations such as sikh groups, unions, fraternal or athletic groups, or [...] and heating? Not hard at all 12/19/2022 [facility] [place] of Occupat ional Health - Occupational Stress [...] your living situation today? I have a [facility] place to live 05/20/2024 Education Answer Date Recorded What is the highest level of school you have completed or the highest degree you have received? Bachelor's degree (e.g., BA, AB, BS) 02/22/2019 Sex and Gender Information Value Date Recorded Sex Assigned at Male 02/05/2018 5:12 PM CDT Legal Sex Male 4:28 AM CYBER WORKFORCE DEVELOPER AND MANAGER Gender Identity Male 02/05/2018 5:12 PM CDT Sexual Orientation Straight 02/05/2018 5: 12 PM CDT documented as of this encounter Medications at Time of Discharge albuterol 90 mcg/actuation inhaler 2 puffs every 6 (six) hours as needed. 05/09/2024 DME CPAPIndications: Obstructive Sleep Apnea Adult DME Order 1 each 11/17/2023 DME Ostomy suppliesIndicati ons:Conduit Ileal (HCC) DME Order 1 Unspecified 11 05/13/2022 DME Ostomy suppliesIndicati ons:Conduit Ileal (HCC) DME Order 1 Unspecified 11 05/13/2022 DME Ostomy suppliesIndicati ons:Conduit Ileal (HCC) DME Order 1 Unspecified 11 06/08/2023 DME Ostomy suppliesIndicati ons:Conduit Ileal (HCC) DME Order 1 Unspecified 11 06/14/2023 ipratropium (ATROVENT) 21 mcg (0.03 %) nasal spray Administer 2 sprays into each nostril 2 (two) times a day. 30 mL 12 12/20/2022 lisinopriL (PRINIVIL,ZESTRI L) 2.5 mg tablet Take 2.5 mg by [...] daily for 7 days. 70 tablet 05/21/2024 simvastatin (for_ZOCOR) 40 mg tablet Take 1 tablet by mouth every evening. 11/17/2015 triamcinolone (Kenalog) 0.147 mg/g topical spray Apply 1 spray topically as needed. 12/18/2023 Xarelto DVT-PE Treat 30d Start tablets,dose pack starter pack 1 tablet 2 (two) times a day. 06/03/2024 documented as of this encounter Plan of Treatment Upcoming Encounters Date Type Department Care Team (Late st Contact Info) Description 08/19/2024 9:00 AM CYBER WORKFORCE DEVELOPER AND MANAGER Diagnostic Division of Pulmonary Medicine in [place], [place] [address] [place] [phone] Francia Luque MPAS, P.A.-C. 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 - 06/06/2024 11:42 AM CDT Pre-Procedure [...] mg/0.05 mL ??Route: intravitreal, Site: Left Eye ??[facility]: [id number] Balanced salt solution irrigation to injected eye [...] given if requested. Eylea Left eye: Lot: [id number] Exp. 01/2025 [id number] Modified Betadine Visual acuity stable. ??Eylea injection left eye today without complication. ??Next appointment in [place] with Dr. Engle. ?? Dr. Handley Cristobal Handley M.D. OPH CLINIC PROCEDURES F inal Result documented in this encounter Visit Diagnoses Not on filedocumented in this encounter Care Teams Farmworker [employer] Relationship Specialty Start Date End Date Elsewhere, Pcp PCP - General Internal Medicine 01/14/19 documented as of this encounter
--- OUTSIDE RECORDS SUMMARY | 2024-06-18 11:35 | XMS_ITS ---
Author Organization [facility] Address [address] [place] [address] Care Team Providers Care Eap Consultant Name Role Phone Unavailable Unavailable Unavailable Surgery Details Not on file Complications Check Surgery Details section. Procedure Estimated Blood Loss Check Surgery Details section. Procedure Findings Check Surgery Details section. Procedure Specimens Taken Check Surgery Details section.
--- OUTSIDE RECORDS SUMMARY | 2024-06-18 11:35 | XMS_ITS | Referral Summary ---
Author Organization [facility] Address [address] [place] [address] Care Team Providers Care Elastic Attacher Chainstitch Name Role Phone Elsewhere, Pcp Primary Care Provider Unavailabl e Source Comments Patient records contain information from all sites at [facility]. For routine questions regarding patient records, call [phone] during business hours, M-F 8:00 AM - 5:00 PM Central Time. Record requests for emergency care only can be directed to [phone] at any time.[facility] Encounters Date Type Department Care Team Description 06/13/2024 7:30 AM CDT Lab Department of Urology in [place], [place] [address] [place] [phone] Devin Jones MPAS, P.A.-C. Leesa Ko V., R.N. Malignant Neoplasm Of Bladder (HCC) 06/13/2024 6:45 AM CDT - 06/13/2024 8:06 AM CDT Hospital Encounter Department of Laboratory Medicine and Pathology, [facility], in [place], [place] [address] [place] [phone] Devin Jones MPAS, P.A.-C. Malignant Neoplasm Of Bladder (HCC); Primary Malignant Neoplasm Of Prostate (HCC) Discharge Disposition: Home or Self Care 06/13/2024 8:07 AM CDT - 06/13/2024 11:59 PM CDT Hospital Encounter Department of Radiology, [facility] in [place], [place] [address] [place] [phone] Devin Jones MPAS, P.A.-C. Malignant Neoplasm Of Bladder (HCC) Discharge Disposition: Home or Self Care 06/13/2024 1:30 PM CDT Office Visit Department of Urology in [place], [place] [address] [place] [phone] Devin Jones MPAS, P.A.-[place]. Brooke North APRN, C.N.P., M.S.N. Malignant Neoplasm Of Bladder (HCC) (Primary Dx); Urostomy Status Post (HCC); Conduit Ileal (HCC); Primary Malignant Neoplasm Of Prostate (HCC); Embolus Pulmonary (HCC) 06/10/2024 10:00 AM CDT Clinical Communication Virtual Review in [place], [place] 200 [place] [address] Pre-visit Intake 06/06/2024 8:03 AM CDT - 06/06/2024 11:59 PM CDT Hospital Encounter Outpatient Procedure Center in [address] [phone] Cristobal Handley M.D. Discharge Disposition: Home or Self Care 06/06/2024 7:42 AM CDT - 06/06/2024 8:02 AM CDT Hospital Encounter Outpatient Procedure Center in [address] [address] Linda Engle M.D. 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 Lung Interstitial Disease (HCC) Discharge Disposition: Home or Self Care 05/21/2024 1:30 PM CDT Office Visit Division of Pulmonary Medicine in [place], [place] [address] [place] [phone] Francia Luque MPAS, PLilly. Lung Interstitial Disease (HCC) (Primary Dx); COVID-19 Infection 05/20/2024 1:00 PM CDT Clinical Communication Virtual Review in [place], [place] 200 [place] [address] Pre-visit Intake 04/21/2024 CPAP Download Remote Patient Monitoring [facility] 5 200 [place] [address] [facility], Provider, 03/21/2024 CPAP Download Remote Patient Monitoring [facility] 5 200 [place] [address] [facility], Provider, 03/21/2024 8:56 AM CDT - 03/21/2024 11:59 PM CDT Hospital Encounter Outpatient Procedure Center in [address] [address] Linda Engle M.D. Central Retinal Vein Occlusion With Macular Edema Left ([facility]) Discharge Disposition: Home or Self Care from [...] drink = 0.6 oz pur e alcohol) [facility] Utilities Answer Date Recorded In the past 12 months has e electric, gas, oil, or water [employer] threatened to shut off services in your [...] often do you attend chur ch or hoahaoism services? 1 to 4 times per year 12/19/2022 Do you belong to any clubs o r organizations such as restorationism groups, unions, fraternal or athletic groups, or [...] and heating? Not hard at all 12/19/2022 [facility] of Occupat ional Health - Occupational Stress [...] your living situation today? I have a [facility] place to live 05/20/2024 Education Answer Date Recorded What is the highest level of school you have completed or the highest degree you have received? Bachelor's degree (e.g., BA, AB, BS) 02/22/2019 Sex and Gender Information Value Date Recorded Sex Assigned at Male 02/05/2018 5:12 PM CDT Legal Sex Male 4:28 AM TRAPPER BIRD Gender Identity Male 02/05/2018 5:12 PM CDT [...] st Contact Info) Description 08/19/2024 9:00 AM TRAPPER BIRD Diagnostic Division of Pulmonary Medicine in [place], [place] 200 [place] [address] Francia Luque, MPAS, P.A.-C. 200 [place] [phone] Medical Devices Implanted Type Area Factory Worker Device Identifier Shelf Expiration Date Model / Serial / Lot Clp Hrzn Ti 24 Sky Cheema Tiago - [id number] Implanted:Qty : 1 on 10/17/2019 by Alejandro Headley M.D. at [facility] Hardware e.g. pins/screws/ rods [employer] [id number] 03/18/2024 [id number] / / [id number] Clp Hrzn Ti 6 Clp Lg Orng - [id number] Implanted:Qty : 1 on 10/17/2019 by Alejandro Headley M.D. at [facility] Hardware e.g. pins/screws/ rods [employer] [id number] 02/27/2024 [id number] / / [id number] Clp Hrzn Ti 6 Clp Lg Orng - [id number] Implanted:Qty : 1 on 10/17/2019 by Alejandro Headley M.D. at [facility] Hardware e.g. pins/screws/ rods [employer] [id number] 02/27/2024 [id number] / / [id number] Clp Hrzn Ti 24 Clp Md Tiago - [id number] Implanted:Qty : 1 on 10/17/2019 by Alejandro Headley M.D. at [facility] Hardware e.g. pins/screws/ rods [employer] [id number] 03/04/2023 [id number] / / [id number] Clp Hrzn Ti 24 Clp Md Tiago - [id number] Implanted:Qty : 1 on 10/17/2019 by Alejandro Headley M.D. at [facility] Hardware e.g. pins/screws/ rods [employer] [id number] 12/06/2020 [id number] / / [id number] Clp Hrzn Ti 6 Clp Lg Orng - [id number] Implanted:Qty : 1 on 10/17/2019 by Alejandro Headley M.D. at [facility] Hardware e.g. pins/screws/ rods [employer] [id number] / / Clp Hrzn Ti 6 Clp Lg Orng - [id number] Implanted:Qty : 1 on 10/17/2019 by Alejandro Headley M.D. at [facility] Hardware e.g. pins/screws/ rods [employer] [id number] / / Clp Hrzn Ti 6 Clp Lg Orng - [id number] Implanted:Qty : 1 on 10/17/2019 by Alejandro Headley M.D. at [facility] Hardware e.g. pins/screws/ rods [employer] [id number] / / Clp Hrzn Ti 6 Clp Lg Orng - [id number] Implanted:Qty : 1 on 10/17/2019 by Alejandro Headley M.D. at [facility] Hardware e.g. pins/screws/ rods [employer] [id number] / / Clp Hrzn Ti 6 Clp Lg Orng - [id number] Implanted:Qty : 1 on 10/17/2019 by Alejandro Headley M.D. at [facility] Hardware e.g. pins/screws/ rods [employer] [id number] / / Clp Hrzn Ti 6 Clp Lg Orng - [id number] Implanted:Qty : 1 on 10/17/2019 by Alejandro Headley M.D. at [facility] Hardware e.g. pins/screws/ rods [employer]dom[employer] [id number] / / Procedures Procedure Name Priority Date/Time Associated Diagnosis Comments CT UROGRAM WITHOUT AND WITH IV CONTRAST RAD - Routine (most inpatients and all outpatients) 06/13/2024 9:23 AM CDT Malignant Neoplasm Of Bladder (HCC) CYTOLOGY NON-BROADCAST METEOROLOGIST Routine 06/13/2024 7:38 AM CDT Malignant Neoplasm [...] HEMOGLOBIN A1C, B Routine 08/02/2019 10:39 AM TRAPPER BIRD Malignant Neoplasm Of Bladder (HCC) Symptom Urinary LIPID PANEL, S Routine 07/24/2015 6:41 AM TRAPPER BIRD from Last 3 Months or Most Recently [...] discussed with Devin Diallo at 10:15 AM Devin LAMAR, P.A.-C. IMG CT PROCEDURES Final Result * Cytology Non-BROADCAST METEOROLOGIST (06/13/2024 7:38 AM CDT) Case Number [id number]/14/2024 2:52 PM CDT DTL Participated in the [...] 7:38 AM CDT 06/13/2024 8:33 AM CDT Devin LAMAR PElodiaAFrancisco. LAB SURG PATH ORD ERABLES Final Result [facility] [address] [place] [address], [facility] DT 200 [facility] [address] [place] [address] * PSA (Prostate-Specific Antigen), Diagnostic (06/13/2024 7:01 AM CDT) Prostate-Specific Ag <0.10 <=4.5 ng/mL 06/13/2024 8:53 [...] BLOOD ADD-ON Final Result Performing Organization Address [facility] de Phone Number [facility] [place] [address] [facility] 200 [place] [address] * Vitamin B12 Assay (06/13/2024 7:01 AM CDT) [facility] Vitamin B12 Assay, S 219 180 - 914 ng/L 06/13/2024 9:45 AM CDT DT Comment: ----ADDITIONAL INFORMATION---- In patients being evaluated [...] BLOOD ADD-ON Final Result Performing Organization Address [facility] de Phone Number [facility] [place] 200 [place] [address], [facility] 200 [place] [address] * (ABNORMAL) Basic Metabolic Panel (06/13/2024 7:01 AM CDT) [facility] Potassium, S 4.8 3.6 - 5.2 mmol/L [...] LAMAR, P.A.-C. LAB BLOOD ADD-ON Final Result [address] [address], [facility] [place] [address] * Intravitreal Injection, Pharmacologic Agent - OS [...] mg/0.05 mL ??Route: intravitreal, Site: Left Eye ??[facility]: 43443-574-14 Balanced salt solution irrigation to injected eye after the injection was Done. Hand motion was present. Count fingers was correct. 14.0. Reviewed instructions and patient verbalizes understanding. Ancillary Staff Ancillary Staff: Carlos Mceke RN, Chloé Martins RN. Notes Patient oriented to outpatient procedure center. ??Reviewed process for scheduled procedure, and pain management including pain scale. Patient declines written post-procedure material or previously received brochure. ?? Information reviewed and understanding assessed by teach-back. ??Follow-up appointments discussed and return schedule given if requested. Eylea Left eye: Lot: [id number] Exp. 01/2025 [id number] Modified Betadine Visual acuity stable. ??Eylea injection left eye today without complication. ??Next appointment in [place] with Dr. Engle. ?? Dr. Handley Cristobal Handley M.D. [facility] PROCEDURES F inal Result * Pulmonary Function Tests (05/21/2024 12:12 PM CDT) FVC 2.83 L 05/21/2024 4:58 PM CDT [facility] FEV1 2.56 L 05/21/2024 4:58 PM CDT [facility] FEV1/FVC 90.55 % 05/21/2024 4:58 PM CDT [facility] CUA74-27% 4.39 L/s 05/21/2024 4:58 PM CDT [facility] PEF PRE 13.46 L/s 05/21/2024 4:58 PM CDT [facility] PIF PRE 9.29 L/s 05/21/2024 4:58 PM CDT [facility] FEF 50 % FIF 50 PRE 62.74 % 05/21/2024 4:58 PM CDT [facility] FET PRE 4.82 sec 05/21/2024 4:58 PM CDT [facility] DLCO 15.70 ml/(min*mm Hg) 05/21/2024 4:58 PM CDT [facility] VA 3.81 L 05/21/2024 4:58 PM CDT [facility] PulseRest 114.00 1/min 05/21/2024 4:58 PM CDT [facility] T5JfmAvsd 95.00 % 05/21/2024 4:58 PM CDT [facility] PulseExer 131.00 1/min 05/21/2024 4:58 PM CDT [facility] EXER TIME 1.50 min 05/21/2024 4:58 PM CDT [facility] STEP HEIGHT PRE 5.00 Inch 05/21/2024 4:58 PM CDT [facility] TLC 4.96 L 05/21/2024 4:58 PM CDT [facility] FRCPLETH PROVBASE 2.55 L 05/21/2024 4:58 PM CDT [facility] RV 2.08 L 05/21/2024 4:58 PM CDT [facility] RV % TLC PRE 42.04 % 05/21/2024 4:58 PM CDT [facility] 05/21/2024 12:1 2 PM CDT Impressions [facility] - 05/21/2024 4:58 PM CDT Abnormal [...] LAMAR, P.A.-C. PFT ORDERABLES Fi nal Result [facility] SENT SU[facility] NA * CT Chest without IV [...] mg/0.05 mL ??Route: intravitreal, Site: Left Eye ??[facility]: 98179-993-73 Balanced salt solution irrigation to injected eye [...] given if requested. Eylea Left eye: Lot: [id number] Exp. 06/2024 SN [id number] Modified Betadine us Linda Engle M.D. OPHTH CLINIC PROCEDURES Zahra l Result * Eyes Spectralis OCT-Ophthalmology Image Exam (11/09/2023 12:00 AM CDT) Narrative [facility] - 11/09/2023 8:17 AM CDT This order has been created and auto-finalized to support the import of images acquired without order. The clinical documentation to support these images can be found on the encounter that produced images. us Provider Not In System IMG NON RAD IMAGING PROCE DURES Final Result Performing Organization Address City/[facility] Co de Phone Number [facility] NA * (ABNORMAL) Hemoglobin A1c (08/02/2019 10:39 AM TRAPPER BIRD) Hemoglobin A1c, B 6.9(H) 4.0 - 5.6 % 08/02/2019 11:31 AM TRAPPER BIRD DTL Comment: Hemoglobin A1c values greater than or equal to 6.5 percent are diagnostic for diabetes mellitus. ??Diagnosis should be confirmed by repeat testing. ??In diabetic patients, HbA1c goals should be discussed with healthcare provider. Blood (Blood, Venous) 08/02/2019 10:39 AM TRAPPER BIRD 08/02/2019 11:02 AM TRAPPER BIRD Abelardo Anna P.A.-C. LAB BLOOD ADD-ON Zahra l Result Performing Organization Address City/[facility]/ZIP Co de Phone Number [facility] [place] 200 [place] [address], [facility] DTL [facility] 200 [place] [address] * (ABNORMAL) Lipid Panel (07/24/2015 6:41 AM TRAPPER BIRD) Pathologist [facility] Cholesterol, Total 177 SeeComment MG/DL [facility] [place] Comment: ? REFERENCE VALUE ? Desirable: < 200 ? Borderline high: 200 - 239 ? High: > or = 240 ? Triglycerides 182(H) SeeComment MG/DL [facility] Comment: ? REFERENCE VALUE ? Normal: <150 ? Borderline high: 150-199 ? High: 200-499 ? Very high: > or =500 ? Cholesterol, Non-HDL, Calculated 116 SeeComment MG/DL [facility] [place] Comment: ? REFERENCE VALUE ? Desirable: <130 ? Above Desirable: 130-159 ? Borderline high: 160-189 ? High: 190-219 ? Very high: > or =220 ? Cholesterol, HDL, S 61 >=40 MG/DL [facility] [place] Calculated LDL 80 SeeComment MG/DL [facility] [place] Comment: ? REFERENCE VALUE ? Desirable: <100 ? Above Desirable: 100-129 ? Borderline high: 130-159 ? High: 160-189 ? Very high: > or =190 ? 07/24/2015 6:41 AM TRAPPER BIRD 07/24/2015 6:41 AM TRAPPER BIRD us Alejandro Ha M.D. LAB BLOOD ADD-ON Final Re sult [facility] [address] [place] [address], [facility] from Last 3 Months or Most Recently Relevant to Health Maintenance Insurance MEDICARE [facility] Advance Directives For more information, please contact: [phone] * Full Code (Latest Code Status on [...] Answer Comments Full Code: Discussed Care Teams Elastic Attacher Chainstitch Relationship Specialty Start Date End Date Elsewhere, Pcp PCP - General Internal Medicine 01/14/19
--- OUTSIDE RECORDS SUMMARY | 2024-06-18 11:35 | XMS_ITS | Encounter Summary ---
Author Organization [facility] Address [address] [place] [address] Care Team Providers Care Superannuation Funds Manager Name Role Phone Elsewhere, Pcp Primary Care Provider Unavailabl e Reason for Referral * MRI/CAT/PET Scan (Routine) - Closed Specialty Diagnoses / Procedures Referred By Yohannes ha Referred To Contact Radiology Diagnoses Malignant Neoplasm Of Bladder (HCC) Procedures CT Urogram without and with IV Contrast Devin Jones MPAS PElodiaAElodia-CElodia [address] [place] [phone] Phone: tel: fax: [facility] Referral ID Status Reason Start Date Expiration Date Visits Re quested Visits Authorized [id number] Closed 06/08/2023 06/07/2024 1 1 Reason for Visit * MRI/CAT/PET Scan (Routine) - Closed Specialty Diagnoses / Procedures Referred By Yohannes ha Referred To Contact Radiology Diagnoses Malignant Neoplasm Of Bladder (HCC) Procedures CT Urogram without and with IV Contrast Devin Jones MPAS PElodiaA.-CElodia [address] [place] [phone] Phone: tel: fax: [facility] Referral ID Status Reason Start Date Expiration Date Visits Re quested Visits Authorized [id number] Closed 06/08/2023 06/07/2024 1 1 Encounter Details Date Type Department Care Team (Latest Contact Info) Description 06/13/2024 8:07 AM CDT - 06/13/2024 11:59 PM CDT Hospital Encounter Department of Radiology, [facility], in [place], [place] [address] [place] [address] Devin Jones, BRIANDA, P.A.-C. [address] [place] [address] Malignant Neoplasm Of Bladder (HCC) Discharge Disposition: Home or Self Care Social History Tobacco Use Types Packs/Day Years Used Date Smoking Tobacco: Never Smokeless Tobacco: Never Alcohol Use Standard Drinks/Week Comments Yes 5 (1 standard drink = 0.6 oz pur e alcohol) [facility] Utilities Answer Date Recorded In the past 12 months has e [employer], gas, oil, or water [employer] threatened to shut off services in your [...] week 12/19/2022 How often do you attend [facility] or anglican services? 1 to 4 times per year 12/19/2022 Do you belong to any clubs o r organizations such as evangelical groups, unions, fraternal or athletic groups, or [...] and heating? Not hard at all 12/19/2022 [facility] of Occupat ional [facility] - Occupational Stress Questionnaire Answer Date Recorded [...] PM CDT Legal Sex Male 4:28 AM SAP BASIS CONSULTANT Gender Identity Male 02/05/2018 5:12 PM CDT [...] daily for 7 days. 70 tablet 05/21/2024 4 simvastatin (for_ZOCOR) 40 mg tablet Take 1 [...] st Contact Info) Description 08/19/2024 9:00 AM SAP BASIS CONSULTANT Diagnostic Division of Pulmonary Medicine in [place], [place] [address] [place] [phone] Francia Luque, MPAS, P.A.-C. [address] [place] [phone] documented as of this encounter Procedures Procedure Name Priority Date/Time Associated Diagnosis Comments CT UROGRAM WITHOUT AND WITH IV CONTRAST RAD - Routine (most inpatients and all outpatients) 06/13/2024 9:23 AM CDT Malignant Neoplasm Of Bladder (HCC) documented in this encounter Results * CT Urogram without and with [...] discussed with Devin Diallo at 10:15 AM us Devin LAMAR, P.A.-C. IMG CT PROCEDURES Final Result documented in this encounter Visit Diagnoses Diagnosis Malignant Neoplasm Of Bladder (HCC) documented in this encounter Administered Medications Inactive Administered Medications - up to 3 most recent administrations Medication Order MAR Action Action Date Dose Rate Site iohexoL 300 mg iodine/mL solution 1-200 mL (Omnipaque) 1-200 mL, intravenous, Once in imaging, contrast, Starting on Mary 06/13/24 at 0822, For 1 dose, Imaging Protocol Orders, Dose per Radiant Medication Guidelines Given 06/13/2024 9:05 AM CDT 140 mL sodium chloride 0.9 % flush 1-250 mL 1-250 mL, intravenous, Once, On Mary 06/13/24 at 0845, For 1 dose, Imaging Protocol Orders, Dose per Radiant Medication Guidelines Given 06/13/2024 9:01 AM CDT 190 mL documented in this encounter Care Teams Superannuation Funds Manager Relationship Specialty Start Date End Date Elsewhere, Pcp PCP - General Internal Medicine 01/14/19 documented as of this encounter
--- OUTSIDE RECORDS SUMMARY | 2024-06-18 11:35 | XMS_ITS | Encounter Summary ---
Author Organization [facility] Address [address] [place] [address] Care Team Providers Care Sewer Head Name Role Phone Elsewhere, Pcp Primary Care Provider Unavailabl e Reason for Visit * Outpatient (Routine) - Closed Specialty Diagnoses / Procedures Referred By Yohannes ha Referred To Contact Urology Devin Jones MPAS, P.A.-C. [address] [place] [phone] Phone: tel: fax: [facility] Referral ID Status Reason Start Date Expiration Date Visits Re quested Visits Authorized [id number] Closed 06/08/2023 06/07/2026 1 1 Encounter Details Date Type Department Care Team (Late st Contact Info) Description 06/13/2024 1:30 PM CDT Office Visit Department of Urology in [place], [place] [address] [place] [phone] Devin Jones MPAS, P.A.-C. [address] [place] [phone] Brooke North APRN, C.N.P., M.S.N. [address] [place] [phone] Malignant Neoplasm Of Bladder (HCC) (Primary Dx); Urostomy Status Post (HCC); Conduit Ileal (HCC); Primary Malignant Neoplasm Of Prostate (HCC); Embolus Pulmonary (HCC) Social History Tobacco Use Types Packs/Day Years Used Date Smoking Tobacco: Never Smokeless Tobacco: Never Alcohol Use Standard Drinks/Week Comments Yes 5 (1 standard drink = 0.6 oz pur e alcohol) [facility] Utilities Answer Date Recorded In the past 12 months has e [employer], gas, oil, or water [employer] threatened to shut off services in your [...] week 12/19/2022 How often do you attend [facility] or christian services? 1 to 4 times per year 12/19/2022 Do you belong to any clubs o r organizations such as latter day groups, unions, fraternal or athletic groups, or [...] and heating? Not hard at all 12/19/2022 [facility] - Occupational Stress Questionnaire Answer Date [...] your living situation today? I have a [facility] place to live 05/20/2024 Education Answer Date Recorded What is the highest level of school you have completed or the highest degree you have received? Bachelor's degree (e.g., BA, AB, BS) 02/22/2019 Sex and Gender Information Value Date Recorded Sex Assigned at Male 02/05/2018 5:12 PM CDT Legal Sex Male 4:28 AM SPECIAL TECHNICAL OPERATIONS OFFICER Gender Identity Male 02/05/2018 5:12 PM CDT Sexual Orientation Straight 02/05/2018 5: 12 PM CDT documented as of this encounter Progress Notes * Brooke North APRN, C.N.P., M.S.N. - 06/13/2024 1:30 PM CDT REASON FOR CONSULT Bladder cancer recheck Prostate cancer recheck Patient of Dr. Headley seen on survivorship calendar HISTORY OF PRESENT ILLNESS Mr. Arnold is a pleasant 69 y.o. who presents today for further bladder cancer recheck. He was diagnosed with high-grade TA urothelial carcinoma, muscle not present in August of 2014. In January of 2015 he had recurrence of high-grade T1 urothelial carcinoma and muscle present and uninvolved. On March 09, 2015 he had carcinoma in-situ on resection. He did receive an induction course of BCG and on surveillance evaluation was found to have recurrent disease. In February of 2019 biopsy revealed high-grade TA urothelial carcinoma. On April 12, 2019 resection showed urothelial carcinoma in-situ. On March 02, 2020 biopsy revealed urothelial carcinoma in-situ involving the mass. Muscularis propria was present and uninvolved. He elected to proceed with radical cysto prostatectomy with formation of ileal conduit diversion [id number]. Pathology demonstrated no residual urothelial carcinoma. Prostate adenocarcinomaGleason 3 + 3 grade group 1 involving the right anterior posterior middle lobe of the prostate. No e xtraprostatic or seminal vesicle invasion. Twenty-three lymph nodes were negative for tumor. He was last seen on 06/08/2023. At that time, CT urogram showed no evidence of recurrent or metastatic disease. Chest CT was stable. He follows with Pulmonary Medicine for interstitial lung disease. Urine cytology was previously negative. Creatinine was 1.09 PSA undetectable. He was asked to returnin 1 year. Denies hematuria, flank pain, back pain, fever, chills, unintentional weight loss. He did have an ulcer adjacent to his stoma that appeared last May and took until January to heal. He also had 1 UTIin January or February. He was recently developed unilateral leg swelling and was diagnosed with lower extremity DVT. He iscurrently taking Xarelto. He has plans to follow up with his primary care provider next week. He denies shortness of breath, chest pain, or hemoptysis. He and his did recently travel quite a bitwith flights to [place] in long drives to [place]. OBJECTIVE PHYSICAL EXAM General: Alert and oriented in no acute distress LABORATORY Recent Results (from the past 72 hours) Basic Metabolic Panel Collection Time: 06/13/24 7:01 AM Result Value Potassium, S 4.8 Sodium, S 139 Chloride, S 102 Bicarbonate, S 25 Anion Gap 12 BUN (Blood Urea Nitrogen), S 21 Creatinine 0.99 Estimated GFR (eGFR) 82 Calcium, Total, S 9.5 Glucose, S 150 (H) Vitamin B12 Assay Collection Time: 06/13/24 7:01 AM Result Value Vitamin B12 Assay, S 219 PSA (Prostate-Specific Antigen), Diagnostic Collection Time: 06/13/24 7:01 AM Result Value Prostate-Specific Ag <0.[address] Urogram without and with IV Contrast Result Date: 06/13/2024 Impression: 1. No findings concerning for recurrence or metastasis in the abdomen or pelvis. 2. Small focal hyperenhancement in the right mid kidney may represent focal pyelonephritis. 3. Suspected bilateral lower lobe pulmonary emboli. Findings were discussed with Devin Jones at 10:15 AM Pulmonary Function Tests Result Date: 05/21/2024 Impression: Abnormal study. There is moderate restriction by total lung capacity. Diffusion capacity, not corrected for hemoglobin is moderately reduced consistent with a pulmonary parenchymal and/orvascular process, or anemia. Oxygenation at rest and with step exercise is normal. Compared to 11/17/2023, TLC has increased. CT Chest without IV Contrast Result Date: 05/21/2024 Impression: Overall unchanged findings of fibrotic interstitial lung disease with CT pattern indeterminate for UIP. 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 Urine cytology: Pending ASSESSMENT / PLAN #1 Malignant Neoplasm Of Bladder (HCC) #2 Urostomy Status Post (HCC) #3 Conduit Ileal (HCC) #4 Primary Malignant Neoplasm Of Prostate (HCC) #5 Embolus Pulmonary (HCC) It was my pleasure to meet with Mr. Arnold in clinic today for his bladder cancer recheck. Together we reviewed the patient's most recent laboratory testing and cross-sectional imaging. Creatinine is 0.99, eGFR 82. CT chest demonstrated dated 05/21/2024 was unchanged. He was seen by Pulmonary on that same day. CT abdomen/pelvis today revealed no evidence of recurrent or metastatic disease. Smallfocal hyperenhancement in the mid right kidney felt to represent focal pyelonephritis.. Bilateral lower lobes with filling defect, suspicious for pulmonary emboli . Patient is currently asymptomatic on Xarelto. We will reach out to his tube bender hand regarding these findings. PSA remains undetectable. B12 level is 219. We discussed consideration of B12 supplementation. Urine cytology was pending at the time of our visit. We discussed that he would be contacted should results returned abnormal. Ot herwise, normal results will be available in the patient portal. PLAN: Follow up in [address] chest , abdomen, pelvis, BMP, and office visit Signed by: Brooke North APRN, C.N.P., M.S.N. All questions addressed. Signed by: Brooke North APRN, C.N.P., M.S.N. 06/13/2024 1:08 PM CDT documented in this encounter Plan of Treatment Upcoming Encounters Date Type Department Care Team (Late st Contact Info) Description 08/19/2024 9:00 AM SPECIAL TECHNICAL OPERATIONS OFFICER Diagnostic Division of Pulmonary Medicine in [place], [place] [address] [place] [phone] Francia Luque, MPAS, P.A.-C. [address] [place] [phone] documented as of this encounter Visit Diagnoses Diagnosis Malignant Neoplasm Of Bladder (HCC)- Primary Urostomy Status Post (HCC) Conduit Ileal (HCC) Primary Malignant Neoplasm Of Prostate (HCC) Embolus Pulmonary (HCC) documented in this encounter Care Teams Sewer Head Relationship Specialty Start Date End Date Elsewhere, Pcp PCP - General Internal Medicine 01/14/19 documented as of this encounter
--- OUTSIDE RECORDS SUMMARY | 2024-06-18 11:35 | XMS_ITS | Encounter Summary ---
Author Organization [facility] Address [address] [place] [address] Care Team Providers Care Beater Tender Name Role Phone Elsewhere, Pcp Primary Care Provider Unavailabl e Encounter Details Date Type Department Care Team (Late st Contact Info) Description 05/22/2024 CPAP Download Remote Patient Monitoring [facility] [address] [place] [phone] [facility], Provider, Social History Tobacco Use Types Packs/Day Years Used Date Smoking Tobacco: Never Smokeless Tobacco: Never Alcohol Use Standard Drinks/Week Comments Yes 5 (1 standard drink = 0.6 oz pur e alcohol) [facility] Utilities Answer Date Recorded In the past 12 months has e electric, gas, oil, or water [employer] threatened to shut off services in your [...] often do you attend chur ch or mandaeism services? 1 to 4 times per year 12/19/2022 Do you belong to any clubs o r organizations such as religion groups, unions, fraternal or athletic groups, or [...] and heating? Not hard at all 12/19/2022 [facility] - Occupational [...] your living situation today? I have a [facility] place to live 05/20/2024 Education Answer Date Recorded What is the highest level of school you have completed or the highest degree you have received? Bachelor's degree (e.g., BA, AB, BS) 02/22/2019 Sex and Gender Information Value Date Recorded Sex Assigned at Male 02/05/2018 5:12 PM CDT Legal Sex Male 4:28 AM HEAD CD REACTOR OPERATOR Gender Identity Male 02/05/2018 5:12 PM CDT Sexual Orientation Straight 02/05/2018 5: 12 PM CDT documented as of this encounter Plan of Treatment Upcoming Encounters Date Type Department Care Team (Late st Contact Info) Description 08/19/2024 9:00 AM HEAD CD REACTOR OPERATOR Diagnostic Division of Pulmonary Medicine in [place], [place] [address] [place] [address] Francia Luque MPAS, P.A.-C. [address] [place] [phone] documented as of this encounter Visit Diagnoses Not on filedocumented in this encounter Care Teams Beater Tender Relationship Specialty Start Date End Date Elsewhere, Pcp PCP - General Internal Medicine 01/14/19 documented as of this encounter
--- OUTSIDE RECORDS SUMMARY | 2024-06-18 11:35 | XMS_ITS | Encounter Summary ---
Author Organization [facility] Address [address] [place] [address] Care Team Providers Care Usps Letter Carrier Name Role Phone Elsewhere, Pcp Primary Care Provider Unavailabl e Reason for Referral * MRI/CAT/PET Scan (Routine) - Closed Specialty Diagnoses / Procedures Referred By Contac t Referred To Contact Radiology Diagnoses Lung Interstitial Disease (HCC) Procedures CT Chest without IV Contrast Francia Luque MPAS, P.A.-Reji [address] [place] [phone] Phone: tel: fax: [facility] Referral ID Status Reason Start Date Expiration Date Visits Re quested Visits Authorized [id number] Closed 11/17/2023 11/16/2024 1 1 Reason for Visit * MRI/CAT/PET Scan (Routine) - Closed Specialty Diagnoses / Procedures Referred By Contac t Referred To Contact Radiology Diagnoses Lung Interstitial Disease (HCC) Procedures CT Chest without IV Contrast Francia Luque MPAS, P.AElodia-CElodia [address] [place] [phone] Phone: tel: fax: [facility] Referral ID Status Reason Start Date Expiration Date Visits Re quested Visits Authorized [id number] Closed 11/17/2023 11/16/2024 1 1 Encounter Details Date Type Department Care Team (Latest Contact Info) Description 05/21/2024 10:30 AM CDT - 05/21/2024 11:59 PM CDT Hospital Encounter Department of Radiology, [facility], in [place], [place] [address] [place] [address] Francia Luque, MPAS, P.A.-C. [address] [place] [phone] Lung Interstitial Disease (HCC) Discharge Disposition: Home or Self Care Social History Tobacco Use Types Packs/Day Years Used Date Smoking Tobacco: Never Smokeless Tobacco: Never Alcohol Use Standard Drinks/Week Comments Yes 5 (1 standard drink = 0.6 oz pur e alcohol) [facility] Utilities Answer Date Recorded In the past 12 months has e [employer], gas, oil, or water [employer] threatened to shut off services in your [...] week 12/19/2022 How often do you attend [facility] or latter-day services? 1 to 4 times per year 12/19/2022 Do you belong to any clubs o r organizations such as jehovah's witness groups, unions, fraternal or athletic groups, or [...] and heating? Not hard at all 12/19/2022 [facility] - Occupational [...] PM CDT Legal Sex Male 4:28 AM HOSPITAL EDUCATOR Gender Identity Male 02/05/2018 5:12 PM CDT [...] Apply 1 spray topically as needed. 12/18/2023 documented as of this encounter Plan of Treatment Upcoming Encounters Date Type Department Care Team (Late st Contact Info) Description 08/19/2024 9:00 AM HOSPITAL EDUCATOR Diagnostic Division of Pulmonary Medicine in [place], [place] [address] [place] [address] Francia Luque, BRIANDA, P.A.-C. [address] [place] [address] documented as of this encounter Procedures Procedure [...] (HCC) documented in this encounter Care Teams Usps Letter Carrier Relationship Specialty Start Date End Date Elsewhere, Pcp PCP - General Internal Medicine 01/14/19 documented as of this encounter
--- OUTSIDE RECORDS SUMMARY | 2024-06-18 11:35 | XMS_ITS | Encounter Summary ---
Author Organization [facility] Address [address] [place] [address] Care Team Providers Care Disassembler Product Name Role Phone Elsewhere, Pcp Primary Care Provider Unavailabl e Reason for Visit * Reason Onset Date Comments Pre-visit Intake 06/10/2024 Encounter Details Date Type Department Care Team (Latest Contact Info) Description 06/10/2024 10:00 AM CDT Clinical Communication Virtual Review in [address] [phone] Pre-visit Intake Social History Tobacco Use Types Packs/Day Years Used Date Smoking Tobacco: Never Smokeless Tobacco: Never Alcohol Use Standard Drinks/Week Comments Yes 5 (1 standard drink = 0.6 oz pur e alcohol) [facility] Utilities Answer Date Recorded In the past 12 months has [facility] [employer], gas, oil, or water [employer] threatened to shut off services in your [...] How often do you attend chur or presybeterian services? 1 to 4 times per year [...] and heating? Not hard at all 12/19/2022 [facility] ional [facility] - Occupational Stress [...] your living situation today? I have a [facility] place to live 05/20/2024 Education Answer Date Recorded What is the highest level of school you have completed or the highest degree you have received? Bachelor's degree (e.g., BA, AB, BS) 02/22/2019 Sex and Gender Information Value Date Recorded Sex Assigned at Male 02/05/2018 5:12 PM CDT Legal Sex Male 4:28 AM REGIONAL PLANNER Gender Identity Male 02/05/2018 5:12 PM CDT Sexual Orientation Straight 02/05/2018 5: 12 PM CDT documented as of this encounter Plan of Treatment Upcoming Encounters Date Type Department Care Team (Late st Contact Info) Description 08/19/2024 9:00 AM REGIONAL PLANNER Diagnostic Division of Pulmonary Medicine in [place], [place] [address] [place] [address] Francia Luque MPAS, P.A.-C. [address] [place] [address] documented as of this encounter Visit Diagnoses Not on filedocumented in this encounter Care Teams Disassembler Product Relationship Specialty Start Date End Date Elsewhere, Pcp PCP - General Internal Medicine 01/14/19 documented as of this encounter
--- OUTSIDE RECORDS SUMMARY | 2024-06-18 11:35 | XMS_ITS ---
Author Organization [facility] Address [address] [place] [address] Care Team Providers Care Outside Production Inspector Name Role Phone Elsewhere, Pcp Primary Care [...] treatments are documented for this patient in [facility]. Treatments may have been administered in another [...]
--- OUTSIDE RECORDS SUMMARY | 2024-06-18 11:35 | XMS_ITS | Encounter Summary ---
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 200 [place] [address] Phone: tel: fax: [facility] Region Referral ID Status Reason Start Date Expiration Date Visits Re quested Visits Authorized [id number] Closed 11/10/2023 11/09/2024 3 3 Encounter Details Date Type Department Care Team (Latest Contact Info) Description 06/06/2024 7:42 AM CDT - 06/06/2024 8:02 AM CDT Hospital Encounter Outpatient Procedure Center in [address] [phone] Linda Engle M.D. 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 1 to 4 times per year [...] and heating? Not hard at all 12/19/2022 [facility] of Occupat ional Health - Occupational Stress [...] PM CDT Legal Sex Male 4:28 AM NATURAL GAS SHOTHOLE DRILLER Gender Identity Male 02/05/2018 5:12 PM CDT [...] st Contact Info) Description 08/19/2024 9:00 AM NATURAL GAS SHOTHOLE DRILLER Diagnostic Division of Pulmonary Medicine in [place], [place] [address] [place] [address] Francia Luque, [facility], P.A.-C. [address] [place] [address] documented as of this encounter Procedures Procedure [...] mg/0.05 mL ??Route: intravitreal, Site: Left Eye ??[facility]: [id number] Balanced salt solution irrigation to injected eye [...] given if requested. Eylea Left eye: Lot: [id number] Exp. 01/2025 [id number] Modified Betadine Visual acuity stable. ??Eylea injection left eye today without complication. ??Next appointment in [place] with Dr. Engle. ?? Dr. Handley Cristobal Handley M.D. 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
--- OUTSIDE RECORDS SUMMARY | 2024-06-18 11:35 | XMS_ITS | Encounter Summary ---
Author Organization [facility] Address [address] [place] [address] Care Team Providers Care Sustainable Communities Designer Name Role Phone Elsewhere, Pcp Primary Care Provider Unavailabl e Encounter Details Date Type Department Care Team (Latest Contact Info) Description 06/13/2024 6:45 AM CDT - 06/13/2024 8:06 AM CDT Hospital Encounter Department of Laboratory Medicine and Pathology, [facility], in [place], [place] [address] [place] [phone] Devin Jones, MPAS, P.A.-C. [address] [place] [phone] Malignant Neoplasm Of Bladder (HCC); Primary Malignant Neoplasm Of Prostate (HCC) Discharge Disposition: Home or Self Care Social History Tobacco Use Types Packs/Day Years Used Date Smoking Tobacco: Never Smokeless Tobacco: Never Alcohol Use Standard Drinks/Week Comments Yes 5 (1 standard drink = 0.6 oz pur e alcohol) [facility] Utilities Answer Date Recorded In the past 12 months has e [employer], gas, oil, or water [employer] threatened to shut off services in [...] How often do you attend chur or zoroastrian services? 1 to 4 times per year [...] and heating? Not hard at all 12/19/2022 [facility] of Occupat ional Health - Occupational Stress [...] living situation today? I have a [facility] place to live 05/20/2024 Education Answer Date Recorded What is the highest level of school you have completed or the highest degree you have received? Bachelor's degree (e.g., BA, AB, BS) 02/22/2019 Sex and Gender Information Value Date Recorded Sex Assigned at Male 02/05/2018 5:12 PM CDT Legal Sex Male 4:28 AM REGISTERED LAND SURVEYOR Gender Identity Male 02/05/2018 5:12 PM CDT [...] st Contact Info) Description 08/19/2024 9:00 AM REGISTERED LAND SURVEYOR Diagnostic Division of Pulmonary Medicine in [place], [place] [address] [place] [address] Francia Luque, MPAS, P.A.-C. [address] [place] [address] documented as of this encounter Procedures Procedure Name Priority Date/Time Associated Diagnosis Comments PROSTATE-SPECIFIC AG (PSA) DIAGNOSTIC, S Routine 06/13/2024 7:01 AM CDT Primary Malignant Neoplasm Of Prostate (HCC) VITAMIN B12 ASSAY, S Routine 06/13/2024 7:01 AM CDT Malignant Neoplasm Of Bladder (HCC) BASIC METABOLIC PANEL, S/P Routine 06/13/2024 7:01 AM CDT Malignant Neoplasm Of Bladder (HCC) documented in this encounter Results * PSA (Prostate-Specific Antigen), Diagnostic (06/13/2024 7:01 AM CDT) Prostate-Specific Ag <0.10 <=4.5 ng/mL 06/13/2024 8:53 AM CDT DTL Comment: ----ADDITIONAL INFORMATION---- The testing method is an electrochemiluminescence assay manufactured by [employer] and performed on the Modular or Agustina system. Values obtained with different assay methods or kits may be different and cannot be used interchangeably. Test results cannot be interpreted as absolute evidence for the presence or absence of malignant disease. Blood (Blood, Venous) 06/13/2024 7:01 AM CDT 06/13/2024 7:49 AM CDT Devin Jones MPAS, P.A.-C. LAB BLOOD ADD-ON Final Result [facility] [address] [place] [address], [facility] DTL [facility] [address] [place] [address] * Vitamin B12 Assay (06/13/2024 7:01 AM CDT) Vitamin B12 Assay, S 219 180 - [...] LAMAR, P.A.-C. LAB BLOOD ADD-ON Final Result [facility] [address] [place] [address], [facility] DTL [facility] [address] [place] [address] * (ABNORMAL) Basic Metabolic Panel (06/13/2024 7:01 [...] CDT 06/13/2024 7:49 AM CDT Devin LAMAR, P.A.IleanaC. LAB BLOOD ADD-ON Final Result [facility] [address] [place] [address], [place] [facility] [address] [place] [address] documented in this encounter Visit Diagnoses Diagnosis Malignant Neoplasm Of Bladder (HCC) Primary Malignant Neoplasm Of Prostate (HCC) documented in this encounter Care Teams Sustainable Communities Designer Relationship Specialty Start Date End Date Elsewhere, Pcp PCP - General Internal Medicine 01/14/19 documented as of this encounter
--- OUTSIDE RECORDS SUMMARY | 2024-06-18 11:36 | XMS_ITS | Encounter Summary ---
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 [address] [place] [phone] Phone: tel: fax: [facility] Region Referral ID Status Reason Start Date Expiration Date Visits Re quested Visits Authorized [id number] Closed 11/10/2023 11/09/2024 3 3 Encounter Details Date Type Department Care Team (Latest Contact Info) Description 03/21/2024 8:56 AM CDT - 03/21/2024 11:59 PM CDT Hospital Encounter Outpatient Procedure Center in [address] [phone] Linda Engle M.D. [address] [place] [address] Central Retinal Vein Occlusion With Macular Edema [...] often do you attend chur ch or buddhism services? 1 to 4 times per year 12/19/2022 Do you belong to any clubs o r organizations such as sabianist groups, unions, fraternal or athletic groups, or [...] place to sleep or slept in a usp (including now)? No 12/19/2022 Nutrition Answer Date [...] PM CDT Legal Sex Male 4:28 AM PATIENT FINANCIAL REPRESENTATIVE Gender Identity Male 02/05/2018 5:12 PM CDT Sexual Orientation Straight 02/05/2018 5: 12 PM CDT documented as of this encounter Medications at Time of Discharge DME CPAPIndications: Obstructive Sleep Apnea Adult DME Order 1 each 11/17/2023 DME Ostomy suppliesIndicati ons:Conduit Ileal (HCC) DME Order 1 Unspecified 05/13/2022 DME Ostomy suppliesIndicati ons:Conduit Ileal (HCC) [...] st Contact Info) Description 08/19/2024 9:00 AM PATIENT FINANCIAL REPRESENTATIVE Diagnostic Division of Pulmonary Medicine in [place], [place] [address] [place] [address] Francia Luque MPAS, P.A.-C. [address] [place] [address] documented as of this encounter Procedures Procedure [...] mg/0.05 mL ??Route: intravitreal, Site: Left Eye ??[facility]: 37637-424-52 Balanced salt solution irrigation to injected eye after the injection was Done. Hand motion was present. Count fingers was correct. Reviewed instructions and patient verbalizes understanding. Ancillary Staff Ancillary Staff: Lizzy Reyes RN and Radha Bradford, VARSHA. Notes Patient oriented to outpatient procedure center. ??Reviewed process for scheduled procedure, and pain management including pain scale. Patient declines written post-procedure material or previously received brochure. ?? Information reviewed and understanding assessed by teach-back. ??Follow-up appointments discussed and return schedule given if requested. Eylea Left eye: Lot: [id number] Exp. 06/2024 SN [id number] Modified Betadine Linda Engle M.D. OPHTH CLINIC PROCEDURES Zahra l Result documented in this encounter Visit Diagnoses [...] Eye documented in this encounter Care Teams Test Conductor Relationship Specialty Start Date End Date Elsewhere, Pcp PCP - General Internal Medicine 01/14/19 documented as of this encounter
--- OUTSIDE RECORDS SUMMARY | 2024-06-18 11:36 | XMS_ITS | Encounter Summary ---
Author Organization [facility] Address [address] [place] [address] Care Team Providers Care Railway Track Plant Operator Name Role Phone Elsewhere, Pcp Primary Care Provider Unavailabl e Reason for Referral * Outpatient (Routine) - Closed Specialty Diagnoses / Procedures Referred By Yohannes ha Referred To Contact Pulmonary Medicine Diagnoses Restrictive Lung Disease Dennis Luna M.D. Phone: tel: fax: [facility] Referral ID Status Reason Start Date Expiration Date Visits Re quested Visits Authorized [id number] Closed 10/22/2018 10/22/2019 1 1 ICE STATION CASHIER Encounter Details Date Type Department Care Team (Late st Contact Info) Description 10/22/[address] [facility] [address] [facility] [address] [place] [address] Dennis Luna M.D. [address], [place] [phone] Restrictive Lung Disease (Primary Dx) Social History Tobacco Use Types Packs/Day Years Used Date Smoking Tobacco: Never Smokeless Tobacco: Never Sex and Gender Information Value Date Recorded Sex Assigned at Male 02/05/2018 5:12 PM CDT Legal Sex Male 4:28 AM SERVICE STATION CASHIER Gender Identity Male 02/05/2018 5:12 PM CDT Sexual Orientation Straight 02/05/2018 5: 12 PM CDT documented as of this encounter Plan of Treatment Upcoming Encounters Date Type Department Care Team (Late st Contact Info) Description 08/19/2024 9:00 AM SERVICE STATION CASHIER Diagnostic Division of Pulmonary Medicine in [place], [place] [address] [place] [address] Francia Luque, MPAS, P.A.-C. [address] [place] [address] Scheduled Referrals Name Type Priority Associated Diagnoses [...] documented as of this encounter Care Teams Railway Track Plant Operator Relationship Specialty Start Date End Date Elsewhere, Pcp PCP - General Internal Medicine 01/14/19 documented as of this encounter
--- OUTSIDE RECORDS SUMMARY | 2024-06-18 11:36 | XMS_ITS | Encounter Summary ---
Author Organization [facility] Address [address] [place] [address] Care Team Providers Care Terra Cotta Roofer Helper Name Role Phone Elsewhere, Pcp Primary Care Provider Unavailabl e Encounter Details Date Type Department Care Team (Late st Contact Info) Description 04/21/2024 CPAP Download Remote Patient Monitoring [facility] [address] [place] [phone] [facility], Provider, Social History Tobacco Use Types Packs/Day Years Used Date Smoking Tobacco: Never Smokeless Tobacco: Never Alcohol Use Standard Drinks/Week Comments Yes 5 (1 standard drink = 0.6 oz pur e alcohol) [facility] Utilities Answer Date Recorded In the past 12 months has e electric, gas, oil, or water [employer] threatened to shut off services in your [...] any clubs o r organizations such as mu-ism groups, unions, fraternal or athletic groups, or [...] and heating? Not hard at all 12/19/2022 [facility] of Occupat ional Health - [...] your living situation today? I have a [facility] place to live 05/20/2024 Education Answer Date Recorded What is the highest level of school you have completed or the highest degree you have received? Bachelor's degree (e.g., BA, AB, BS) 02/22/2019 Sex and Gender Information Value Date Recorded Sex Assigned at Male 02/05/2018 5:12 PM CDT Legal Sex Male 4:28 AM ORACLE DATABASE ARCHITECT Gender Identity Male 02/05/2018 5:12 PM CDT Sexual Orientation Straight 02/05/2018 5: 12 PM CDT documented as of this encounter Plan of Treatment Upcoming Encounters Date Type Department Care Team (Late st Contact Info) Description 08/19/2024 9:00 AM ORACLE DATABASE ARCHITECT Diagnostic Division of Pulmonary Medicine in [place], [place] [address] [place] [address] Francia Luque MPAS, P.A.-C. [address] [place] [address] documented as of this encounter Visit Diagnoses Not on filedocumented in this encounter Care Teams Terra Cotta Roofer Helper Relationship Specialty Start Date End Date Elsewhere, Pcp PCP - General Internal Medicine 01/14/19 documented as of this encounter
--- OUTSIDE RECORDS SUMMARY | 2024-06-18 11:36 | XMS_ITS | Encounter Summary ---
Author Organization [facility] Address [address] [place] [address] Care Team Providers Care Drop Hammer Pile Driver Operator Name Role Phone Elsewhere, Pcp Primary Care Provider Unavailabl e Encounter Details Date Type Department Care Team (Late st Contact Info) Description 02/19/2024 CPAP Download Remote Patient Monitoring [facility] [address] [place] [phone] [facility], Provider, Social History Tobacco Use Types Packs/Day [...] often do you attend chur ch or latter day services? 1 to 4 times per year [...] [facility] of Occupat ional Health - Occupational Stress [...] PM CDT Legal Sex Male 4:28 AM PRIMING MIXTURE CARRIER Gender Identity Male 02/05/2018 5:12 PM CDT Sexual Orientation Straight 02/05/2018 5: 12 PM CDT documented as of this encounter Plan of Treatment Upcoming Encounters Date Type Department Care Team (Late st Contact Info) Description 08/19/2024 9:00 AM PRIMING MIXTURE CARRIER Diagnostic Division of Pulmonary Medicine in [place], [place] [address] [place] [phone] Francia Luque MPAS, P.A.-C. [address] [place] [address] documented as of this encounter Visit Diagnoses Not on filedocumented in this encounter Care Teams Drop Hammer Pile Driver Operator Relationship Specialty Start Date End Date Elsewhere, Pcp PCP - General Internal Medicine 01/14/19 documented as of this encounter
--- OUTSIDE RECORDS SUMMARY | 2024-06-18 11:36 | XMS_ITS | Encounter Summary ---
Author Organization [facility] Address [address] [place] [address] Care Team Providers Care Nutrition Therapist Name Role Phone Elsewhere, Pcp Primary Care Provider Unavailabl e Reason for Visit * Reason Onset Date Comments Pre-visit Intake 05/20/2024 Encounter Details Date Type Department Care Team (Latest Contact Info) Description 05/20/2024 1:00 PM CDT Clinical Communication Virtual Review in [address] [phone] Pre-visit Intake Social History Tobacco Use Types Packs/Day Years Used Date Smoking Tobacco: Never Smokeless Tobacco: Never Tobacco Cessation:Counseling Given: Not Answered Alcohol Use Standard Drinks/Week Comments Yes 5 (1 standard drink = 0.6 oz pur e alcohol) [facility] Utilities Answer Date Recorded In the past 12 months has [facility] [employer], gas, oil, or water [employer] threatened to shut off services in your [...] How often do you attend chur or confucianism services? 1 to 4 times per year 12/19/2022 Do you belong to any clubs o r organizations such as muslim groups, unions, fraternal or athletic groups, or [...] and heating? Not hard at all 12/19/2022 [facility] of Occupat ional Health - [...] your living situation today? I have a [employer] [facility] [employer] place to live 05/20/2024 Education Answer Date Recorded What is the highest level of school you have completed or the highest degree you have received? Bachelor's degree (e.g., BA, AB, BS) 02/22/2019 Sex and Gender Information Value Date Recorded Sex Assigned at Male 02/05/2018 5:12 PM CDT Legal Sex Male 4:28 AM MEAT STOCK CLERK Gender Identity Male 02/05/2018 5:12 PM CDT Sexual Orientation Straight 02/05/2018 5: 12 PM CDT documented as of this encounter Plan of Treatment Upcoming Encounters Date Type Department Care Team (Late st Contact Info) Description 08/19/2024 9:00 AM MEAT STOCK CLERK Diagnostic Division of Pulmonary Medicine in [place], [place] [address] [place] [address] Francia Luque, MPAS, P.A.-C. [address] [place] [address] documented as of this encounter Visit Diagnoses Not on filedocumented in this encounter Care Teams Nutrition Therapist Relationship Specialty Start Date End Date Elsewhere, Pcp PCP - General Internal Medicine 01/14/19 documented as of this encounter
--- OUTSIDE RECORDS SUMMARY | 2024-06-18 11:36 | XMS_ITS | Encounter Summary ---
Author Organization [facility] Address [address] [place] [address] Care Team Providers Care Table Tender Sludge Name Role Phone Elsewhere, Pcp Primary Care Provider Unavailabl e Reason for Visit * Outpatient (Routine) - Closed Specialty Diagnoses / Procedures Referred By Yohannes ha Referred To Contact Pulmonary Medicine Francia Luque MPAS, P.A.-C. [address] [place] [phone] Phone: tel: fax: [facility] Referral ID Status Reason Start Date Expiration Date Visits Re quested Visits Authorized [id number] Closed 11/17/2023 05/18/2025 1 1 Encounter Details Date Type Department Care Team (Late st Contact Info) Description 05/21/2024 1:30 PM CDT Office Visit Division of Pulmonary Medicine in [place], [place] [address] [place] [phone] Francia Luque MPAS, P.A.-C. [address] [place] [phone] Lung Interstitial Disease (HCC) (Primary Dx); COVID-19 Infection Social History Tobacco Use Types Packs/Day Years Used Date Smoking Tobacco: Never Smokeless Tobacco: Never Alcohol Use Standard Drinks/Week Comments Yes 5 (1 standard drink = 0.6 oz pur e alcohol) [facility] Utilities Answer Date Recorded In the past 12 months has th e electric, gas, oil, or water company [...] any clubs o r organizations such as faith groups, unions, fraternal or athletic groups, or [...] and heating? Not hard at all 12/19/2022 [facility] of Occupat ional Health - Occupational Stress [...] your living situation today? I have a [facility] place to live 05/20/2024 Education Answer Date Recorded What is the highest level of school you have completed or the highest degree you have received? Bachelor's degree (e.g., BA, AB, BS) 02/22/2019 Sex and Gender Information Value Date Recorded Sex Assigned at Male 02/05/2018 5:12 PM CDT Legal Sex Male 4:28 AM SWABBER Gender Identity Male 02/05/2018 5:12 PM CDT [...] Interstitial Lung Disease HISTORY OF PRESENT ILLNESS Cayden Arnold is a 69 y.o. male with a past medical history significant for interstitial lung disease, COVID, arrhythmia, arthritis, malignant neoplasm of the bladder s/p cystectomy & stoma placement 09/2019, sleep apnea, seasonal pneumonia, diabetes-no medications prescribed, and HLD. Recall, Mr. Arnold is an established patient in [facility]. He was first evaluated in 10/[address] Vicente until his longterm from patient care in 2022. Upon his [...] fibrotic reticular opacities compared to 11/2022 with [id number] comparison showing significant difference in resolution clarity. [...] with some of his shortness of breath. Eh does not feel he was back to [...] Reading Date Result Priority Dahlia Scott M.D. [phone] [id number] 05/21/2024 RAD - Routine (most inpatients and [...] Disease Clinic when Mr. Arnold returns to [place] next Spring (6-9 months from now). No [...] Total time spent: 38 minutes, which included [id number] time during the encounter as well as one or more of the following: medical record review, documenting and ordering services, phone calls, family meetings, and/or communication with other healthcare professionals. documented in this encounter Plan of Treatment Upcoming Encounters Date Type Department Care Team (Late st Contact Info) Description 08/19/2024 9:00 AM [facility] Diagnostic Division of Pulmonary Medicine in [place], [place] [address] [place] [address] Francia Luque, [email or web address], P.A.-C. [address] [place] [address] Scheduled Orders Name Type Priority Associated Diagnoses Orde r Schedule Pulmonary Function Tests PFT Routine Lung Interstitial Disease (HCC) COVID-19 Infection Expected: 08/20/2024, Expires: 08/20/2025 documented as of this encounter Visit Diagnoses Diagnosis Lung Interstitial Disease (HCC)- Primary COVID-19 Infection documented in this encounter Care Teams Table Tender Sludge Relationship Specialty Start Date End Date Elsewhere, Pcp PCP - General Internal Medicine 01/14/19 documented as of this encounter
--- OUTSIDE RECORDS SUMMARY | 2024-06-18 11:36 | XMS_ITS | Encounter Summary ---
Author Organization [facility] Address [address] [place] [address] Care Team Providers Care Cashier And Salesperson Name Role Phone Elsewhere, Pcp Primary Care Provider Unavailabl e Encounter Details Date Type Department Care Team (Late st Contact Info) Description 01/06/2017 Historical Ophthalmology [facility] Linda Engle M.D. [address] [place] [phone] Social History Tobacco Use Types Packs/Day Years Used Date Smoking Tobacco: Never Assessed Sex and Gender Information Value Date Recorded Sex Assigned at Male 02/05/2018 5:12 PM CDT Legal Sex Male 4:28 AM MANAGER APPLICATION DEVELOPMENT Gender Identity Male 02/05/2018 5:12 PM CDT [...] bladder cancer CDM Reports - EYEGEN Id: [id number] Status: Fnl documented in this encounter Plan of Treatment Upcoming Encounters Date Type Department Care Team (Late st Contact Info) Description 08/19/2024 9:00 AM MANAGER APPLICATION DEVELOPMENT Diagnostic Division of Pulmonary Medicine in [place], [place] [address] [place] [address] Francia Luque, [facility], P.A.-C. [address] [place] [address] documented as of this encounter Visit Diagnoses Not on filedocumented in this encounter Additional Health Concerns Infection Onset Date Last Indicated Resolved Time COVID19 Pending 05/10/2020 05/10/2020 05/11/2020 8 :57 AM CDT COVID19 Pending 03/09/2021 03/09/2021 03/09/2021 1 2:25 PM CDT COVID19 Pending 06/08/2021 06/08/2021 06/08/2021 2 :15 PM CDT documented as of this encounter Care Teams Cashier And Salesperson Relationship Specialty Start Date End Date Elsewhere, Pcp PCP - General Internal Medicine 01/14/19 documented as of this encounter
--- OUTSIDE RECORDS SUMMARY | 2024-06-18 11:36 | XMS_ITS | Encounter Summary ---
Author Organization [facility] Address [address] [place] [address] Care Team Providers Care Manager Of Transportation Name Role Phone Elsewhere, Pcp Primary Care Provider Unavailabl e Encounter Details Date Type Department Care Team (Late st Contact Info) Description 05/16/2017 Historical Ophthalmology [facility] Linda Engle M.D. [address] [place] [phone] Social History Tobacco Use Types Packs/Day Years Used Date Smoking Tobacco: Never Assessed Sex and Gender Information Value Date Recorded Sex Assigned at Male 02/05/2018 5:12 PM CDT Legal Sex Male 4:28 AM MANAGER SAP Gender Identity Male 02/05/2018 5:12 PM CDT [...] bladder cancer CDM Reports - EYEGEN Id: [id number] Status: Fnl documented in this encounter Plan of Treatment Upcoming Encounters Date Type Department Care Team (Late st Contact Info) Description 08/19/2024 9:00 AM MANAGER SAP Diagnostic Division of Pulmonary Medicine in [place], [place] [address] [place] [address] Francia Luque, MPAS, P.A.-C. [address] [place] [address] documented as of this encounter Visit Diagnoses Not on filedocumented in this encounter Additional Health Concerns Infection Onset Date Last Indicated Resolved Time COVID19 Pending 05/10/2020 05/10/2020 05/11/2020 8 :57 AM CDT COVID19 Pending 03/09/2021 03/09/2021 03/09/2021 1 2:25 PM CDT COVID19 Pending 06/08/2021 06/08/2021 06/08/2021 2 :15 PM CDT documented as of this encounter Care Teams Manager Of Transportation Relationship Specialty Start Date End Date Elsewhere, Pcp PCP - General Internal Medicine 01/14/19 documented as of this encounter
--- OUTSIDE RECORDS SUMMARY | 2024-06-18 11:36 | XMS_ITS | Encounter Summary ---
Author Organization [facility] Address [address] [place] [id number] Care Team Providers Care Kitchen Designer Name Role Phone Elsewhere, Pcp Primary Care Provider Unavailabl e Encounter Details Date Type Department Care Team (Late st Contact Info) Description 03/21/2024 CPAP Download Remote Patient Monitoring [facility] [address] [place] [phone] [facility], Provider, Social History Tobacco Use Types [...] any clubs o r organizations such as latter-day groups, unions, fraternal or athletic groups, or [...] heating? Not hard at all 12/19/2022 [facility] [place] [facility] Occupat ional [facility] - Occupational Stress [...] place to sleep or slept in a prison (including now)? No 12/19/2022 Nutrition Answer Date [...] PM CDT Legal Sex Male 4:28 AM VEST FRONT PRESSER Gender Identity Male 02/05/2018 5:12 PM CDT Sexual Orientation Straight 02/05/2018 5: 12 PM CDT documented as of this encounter Plan of Treatment Upcoming Encounters Date Type Department Care Team (Late st Contact Info) Description 08/19/2024 9:00 AM VEST FRONT PRESSER Diagnostic Division of Pulmonary Medicine in [place], [place] [address] [place] [phone] Francia Luque MPAS, P.A.-C. [address] [place] [address] documented as of this encounter Visit Diagnoses Not on filedocumented in this encounter Care Teams Kitchen Designer Relationship Specialty Start Date End Date Elsewhere, Pcp PCP - General Internal Medicine 01/14/19 documented as of this encounter
--- OUTSIDE RECORDS SUMMARY | 2024-06-18 11:36 | XMS_ITS | Encounter Summary ---
Author Organization [facility] Address [address] [place] [address] Care Team Providers Care Main Line Assembler Name Role Phone Elsewhere, Pcp Primary Care Provider Unavailabl e Encounter Details Date Type Department Care Team (Late st Contact Info) Description 11/02/2017 Historical Ophthalmology [facility] Linda Engle M.D. 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 [address] [place] [phone] documented as of this encounter Visit Diagnoses Not on filedocumented in this encounter Additional Health Concerns Infection Onset Date Last Indicated Resolved Time COVID19 Pending 05/10/2020 05/10/2020 05/11/2020 8 :57 AM CDT COVID19 Pending 03/09/2021 03/09/2021 03/09/2021 1 2:25 PM CDT COVID19 Pending 06/08/2021 06/08/2021 06/08/2021 2 :15 PM CDT documented as of this encounter Care Teams Main Line Assembler Relationship Specialty Start Date End Date Elsewhere, Pcp PCP - General Internal Medicine 01/14/19 documented as of this encounter
== END 2024-06-18 11:29 | disposition home or self-care (01) ==
PROVIDERS: PCP Internal Medicine; Visit Provider Internal Medicine
DX: I82.431 Acute embolism and thrombosis of right popliteal vein (principal)
CPT/HCPCS: 81240; 81241; 85300; 85303; 85306; 86038

== ENCOUNTER 2025-01-09 09:33 | Outpatient (CLI) | payer MEDICARE, BC, SELFPAY ==
--- NOTE | 2025-01-09 09:15 | CRLHL7_ITS ---
For Patients: As a result of the Century Cures Act, medical imaging exams and procedure reports are released immediately into your electronic medical record. You may view this report before your referring provider. If you have questions, please contact your health care provider. INDICATION: Right leg pain and swelling. History of prior DVT. Blood thinners 11/26/2024. COMPARISON: 06/03/2024 TECHNIQUE: Akhtar-scale, color, and duplex Doppler imaging of the right lower extremity veins. Compression and augmentation attempted where anatomically and clinically feasible. FINDINGS: Laterality: Right Examined veins: Common femoral, proximal deep femoral, superficial femoral, popliteal, peroneal, posterior tibial Greater saphenous The femoral vein is duplicated at its mid to distal portion. There is nonocclusive deep venous thrombosis in the femoral vein just above its bifurcation. There is partially occlusive thrombus in 1 of the duplicated femoral veins from its mid to distal portion. There is completely occlusive thrombus in the distal aspect of 1 of the duplicated femoral veins. There is occlusive thrombus in the right popliteal vein. There is occlusive thrombus in the right posterior tibial vein and right peroneal veins. There is some nonocclusive superficial venous thrombus in a right gastrocnemius vein. The common femoral and proximal femoral veins are patent with normal grayscale appearance and normal compressibility where anatomically feasible. Normal color Doppler flow. Normal venous waveforms on duplex Doppler ultrasound with normal augmentation. The left common femoral vein is sampled for comparison and is normal. IMPRESSION: Extensive mixed occlusive and nonocclusive deep venous thrombosis from the right mid superficial femoral vein through the calf veins. The extent of thrombus is similar to the comparison exam. Dictated by Kate Oneal MD @ 01/09/2025 10:41:42 AM (Electronically Signed)
== END 2025-01-09 09:34 | disposition home or self-care (01) ==
LOC: US 09:34
PROVIDERS: PCP Internal Medicine; Visit Provider Internal Medicine
DX: I82.411 Acute embolism and thrombosis of right femoral vein (principal); I82.4Z1 Acute embolism and thrombosis of unspecified deep veins of right distal lower extremity; R22.41 Localized swelling, mass and lump, right lower limb
CPT/HCPCS: 93971

== ENCOUNTER 2025-06-30 09:25 | Outpatient (CLI) | payer MEDICARE, BC, SELFPAY | END 2025-06-30 09:26 | disposition home or self-care (01) | LOC: NFLDREF 07-03 11:43 | PROVIDERS: PCP Internal Medicine; Referring Provider Internal Medicine; Visit Provider Internal Medicine | DX: E11.620 Type 2 diabetes mellitus with diabetic dermatitis (principal); E78.5 Hyperlipidemia, unspecified; I10 Essential (primary) hypertension | CPT/HCPCS: 80053; 80061; 82043; 82570 ==